=== PATIENT | male | born 1935 | race Caucasian/White ===

== ENCOUNTER 2016-04-20 08:24 | Inpatient (IN) | payer OTHER, MEDICARE ==
[2016-04-12 10:34] VITALS: BMI 36.0
[~2016-04-20] VITALS: Ht 177.8 cm; Wt 114.0 kg
--- NOTE | 2016-04-20 06:18 | History and Physical ---
History & Physical CC: End stage renal disease HPI: Mr. Hightower states that he is not yet on dialysis, but was advised to have this fistula created prior to needing it as it would take some time for maturation. He left basilic vein fistula created and is now admitted ofr transposistion. The patient denies any complaints at this time including headaches, fevers, chills, dizziness, chest pain, shortness of breath, abdominal pain, nausea, vomiting, diarrhea, constipation, dysuria, hematuria, rest pain, claudication, nonhealing wounds or ulcers or other complaints. The vein mapping ultrasound of his bilateral upper extremities demonstrates usable basilic veins in the upper arms bilaterally. The patient is right- handed. ALLERGIES: INCLUDE RIKI INHIBITORS, PREDNISONE AND TAPE. HOME MEDICATIONS: Reconciled on the chart and include the following: Allopurinol, aspirin, atenolol, calcitriol, Diltia XT, furosemide, hydralazine, losartan, tamsulosin, and vitamin D3. PAST MEDICAL HISTORY: Positive for chronic kidney disease, renal carcinoma, history of basal cell carcinoma, obstructive sleep apnea, hypertension, gout, colon polyps. PAST SURGICAL HISTORY: Positive for appendectomy in 1960, right nephrectomy, colonoscopy, cataract removal, cystoscopy. SOCIAL HISTORY: Negative for tobacco, alcohol or drug use. FAMILY HISTORY: Positive for colon cancer in a brother, renal failure in his mother, stomach cancer in his father. REVIEW OF SYSTEMS: Negative for fatigue, fevers, sweats, weight loss, exercise intolerance, abnormal moles or rashes, vision changes or photophobia, ear pain, sinus problems or sore throat, cough, shortness of breath, hemoptysis or wheezing, chest pain, palpitations, edema or syncope, abdominal pain, nausea, vomiting, diarrhea, constipation, dysuria, hematuria, muscle weakness, headaches , dizziness, numbness or seizures. PHYSICAL EXAM: His vital signs today are as follows: Blood pressure 134/64 in the left arm, heart rate 57, oxygen 97% on room air. The patient is 175 cm tall and 113 kilograms. Constitutional: In general, patient is an obese, but generally healthy-appearing, well-nourished, well-developed elderly male in no acute distress. He ambulates without assistance and is active, alert and oriented x4 with no recent and remote memory. His head is normocephalic, atraumatic. Eyes are EOMI. His ENMT exam demonstrates no hearing loss, rhinorrhea or pharyngeal erythema. His neck is supple, nontender with midline trachea without masses or crepitus. Lung exam demonstrates no dyspnea. They are decreased somewhat, but are clear to auscultation bilaterally. Cardiovascular exam demonstrates a nondisplaced apical impulse with a regular rate and rhythm without murmurs, lifts, heaves, thrills or gallops. His peripheral pulses are full and equal in all extremities unless otherwise noted, specifically they are normal in his carotid, brachial, radial and femoral pulses. His bilateral lower extremity distal pulses are +2. He has brisk capillary refill and no sign of distal ischemia. The patient demonstrates no bruits in his carotid, abdominal or femoral area. His abdomen is soft, nontender with normoactive bowel sounds in all 4 quadrants without guarding or rebound. There is no flank or CVA tenderness. His musculoskeletal exam demonstrates normal tone and strength for age. His bilateral upper extremities demonstrate no cyanosis, edema, clubbing, varicosities or ulcers. His bilateral lower extremities do demonstrate +1 edema but no cyanosis, mottling or ulcers. Neurologically, patient has grossly intact cranial nerves and grossly intact sensation. ASSESSMENT AND PLAN: End-stage renal disease, not on hemodialysis. Plan: This patient is admitted for transposition of a left antecubital basilic vein fistula. I have discussed the risks options and benefits of the procedure with the patient. The patient understands the risks options and benefits and agrees to the procedure.
[~2016-04-20 08:24] MED LIST: ALL300 PO; ASPI81TA28 PO; ATEN-173 PO; CALC1CAP36 PO; CALC667C4 PO; CEFAZOLIN 2000 MG/60 ML D5W IV SCH; CHOL100027 PO; CRDCD240 PO; CZR50 PO; FLM4 PO; FRS/40 PO; HYDR-4717 PO; SODIUM CHLORIDE 0.9% 1000ML 1,000 ML IV SCH
[2016-04-20 08:49] VITALS: BP 133/59; PULSE 68; TEMP 36.5; O2SAT 95; BMI 36.0
[2016-04-20 09:24] LABS: PROTHROMBIN TIME (PATIENT) 10.8 SECONDS (9.0-12.0)
--- NOTE | 2016-04-20 09:33 | History & Physical Bridge Note ---
H&P Re-Evaluation Bridge Note: I have examined the patient, reviewed the History & Physical and in the interval since the performance of the History & Physical I have noted the following changes of clinical significance: No changes noted
[2016-04-20 09:43] LABS: BUN/CREATININE RATIO 14.6 (10-20); POTASSIUM 4.6 mmol/L (3.5-5.1)
[2016-04-20 09:44] LABS: CREATININE 5.4 mg/dl (0.60-1.40)
[2016-04-20] MEDS ORDERED: FENTANYL CITRATE INJ 50 MCG/1 ML 2 ML VIAL ONE ×2 (10:07→11:03)
[2016-04-20] MEDS ORDERED: MIDAZOLAM HCL 1 MG/ML 2ML VIAL ONE (10:07)
[2016-04-20] MEDS ORDERED: CEFAZOLIN SOD 1 GM VIAL ONE (10:46)
[2016-04-20] MEDS ORDERED: LIDOCAINE HCL 2% 2 ML VIAL (20MG/ML) ONE (10:46)
[2016-04-20] MEDS ORDERED: EpHEDrine SULFATE 50MG/5ML SYR ONE (10:46)
[2016-04-20] MEDS ORDERED: PROPOFOL IV EMULSION 10 MG/ML 20 ML VIAL IV ONE (10:46)
[2016-04-20] MEDS ORDERED: ONDANSETRON INJ 2 MG/ML 2 ML VIAL ONE (12:15)
--- NOTE | 2016-04-20 12:26 | [facility] Post Operative Brief Note ---
Immediate Operative Summary Operative Date Apr 20, 2016. Pre-Operative Diagnosis End stage renal disease Post-Operative Diagnosis Same as preop Procedure(s) Performed Left upper extremity basilic vein transposition second stage Surgeon Dr. Lin Technical Training Manager Surgeon(s) Salome Ralph PA-C Estimated Blood Loss 150ml Findings Good thrill Specimens none Anesthesia Gen Complication(s) None Disposition Recovery Room / PACU
--- NOTE | 2016-04-20 12:29 | Discharge Instructions ---
Discharge Instructions Visit Reason for Visit: End Stage Renal Disease Discharge Discharge Diagnosis / Problem: End stage renal disease Discharge Goals Goal(s): Therapeutic intervention Activity Recommendations Activity Limitations: per Instructions/Follow-up section Anesthesia . Post Anesthesia Instructions: If you have had General Anesthesia or IV Sedation: * Do not drive today. * Resume driving when surgeon permits. * Do not make important decisions or sign legal documents today. * Call surgeon for: 1. Temperature elevations greater than 101 degrees F. 2. Uncontrollable pain. 3. Excessive bleeding. 4. Persistent nausea and vomiting. 5. Medication intolerance (nausea, vomiting or rash). * For nausea and vomiting use only clear liquids such as: tea, soda, bouillon until nausea subsides, then gradually increase diet as tolerated. * If you have any concerns or questions, call your surgeon's office. If physician is unavailable and it is an emergency, call 911 or go to the nearest emergency room. . Instructions / Follow-Up Instructions / Follow-Up Call [phone] to schedule a follow up appointment if one not already scheduled. ACTIVITY RECOMMENDATIONS: See Above SPECIAL CARE INSTRUCTIONS: Call your doctor if: * Temperature above 101 degrees * Pain not relieved by pain medicine ordered * There is increased drainage or redness from any incision * You have any unanswered questions or concerns. Diet Recommendations Recommended Home Diet: resume previous diet Procedures Procedures Performed: Left upper extremity basilic vein transposition second stage Pending Studies Studies pending at discharge: no Medical Emergencies . Who to Call and When: Medical Emergencies: If at any time you feel your situation is an emergency, please call 911 immediately. . Non-Emergent Contact Non-Emergency issues call your: Surgeon . . "Provider Documentation" section prepared by Maxime Lin.
[2016-04-20] MEDS ORDERED: ATROPINE SULFATE 0.1 MG/ML 5ML SYR IV PRN (12:45)
[2016-04-20] MEDS ORDERED: FENTANYL CITRATE INJ 50 MCG/1 ML 2 ML VIAL IV PRN (12:45)
[2016-04-20] MEDS ORDERED: EpHEDrine SULFATE INJ 50 MG/ML AMP IV PRN (12:45)
[2016-04-20] MEDS ORDERED: ONDANSETRON INJ 2 MG/ML 2 ML VIAL IV PRN ×3 (12:45→14:30)
--- NOTE | 2016-04-20 13:35 | Progress Note ---
Progress Note I assisted Dr Lin with Santos Hightower's Left upper extremity basilic vein transposition second stage on 04/20/16, d/t lack of resident availability.
[2016-04-20 14:09] LABS: HEMATOCRIT 27.6 % (42-52)
--- NOTE | 2016-04-20 14:18 | Anesthesiology Progress Note ---
Anesthesia Post Op Note Date & Time Apr 20, 2016 at 14:16 Vital Signs Pain Intensity: 3 Vital Signs Past 12 Hours Date Time Temp Pulse Resp B/P Pulse Ox O2 Delivery O2 Flow Rate FiO2 04/20/16 14:05 53 17 97/56 100 Nasal Cannula 2 04/20/16 13:55 52 12 102/58 100 Nasal Cannula 2 04/20/16 13:45 52 12 102/59 100 Nasal Cannula 2 04/20/16 13:35 51 12 92/56 99 Nasal Cannula 2 04/20/16 13:25 48 12 91/54 100 Nasal Cannula 2 04/20/16 13:15 48 13 94/52 100 Nasal Cannula 2 04/20/16 13:05 51 12 98/55 100 Nasal Cannula 2 04/20/16 12:55 38 13 101/49 100 Mask 10 04/20/16 12:45 47 12 96/52 100 Mask 10 04/20/16 12:38 36.1 35 12 91/49 100 Mask 10 04/20/16 08:49 36.5 68 20 133/59 95 Room Air Notes Mental Status: alert / awake / arousable, participated in evaluation Pt Amnestic to Procedure: Yes Nausea / Vomiting: adequately controlled Pain: adequately controlled Airway Patency, RR, SpO2: stable & adequate BP & HR: stable & adequate Hydration State: stable & adequate Anesthetic Complications: no major complications apparent Patient was having some sinus pauses on arrival to pacu. this improved after an hour or so in recovery. he was arousable and appropriate throughout. Due to this and some swelling in the arm which had been evaluated by Dr Lin, he will be admitted to observation overnight on telemetry. Cardiology has been consulted and will evaluate the patient.
[2016-04-20] MEDS ORDERED: NITROGLYCERIN 0.4 MG SL PER TAB CHARGE SL PRN (14:30)
[2016-04-20] MEDS ORDERED: ACETAMINOPHEN 325 MG TAB PO PRN (14:30)
--- NOTE | 2016-04-20 14:39 | Progress Note ---
Progress Note ATTENDING NOTE : pt seen and evaluated with Evie Tafoya PA-C lab works , EKG reviewed , please seen her detail note 81 M with CKD stage 4-5 , solitary kidney , s/ P rt nephrectomy for renal cell CA , gout , BPH MUGS was at same surgery center for Dialysis access -underwent Left upper extremity basilic vein transposition second stage on today by Dr Nicole had uneventful procedure except pt remained in sinus bradycardia HR in 50's , anesthesiology note mentions frequent sinus pause in PACU after recovering form anesthesia -pt was found to have 3 sec sinus pause was asymptomatic , during evaluation -his HR was 54 pt denies of any symptom of SOB, dizzy spell or palpitation not aware of any prior event of cardiac arrhythmia P/E: Gen: no apparent distress HEENT : sclera non icteric, PERRLA/EOMI HT :regular S1/S2 Lungs : CTA ext : s/p left upper arm vascular surgery -char present , no bleeding , + edema on left upper arm Abdomen : soft, non tender neuro: no focal neurological deficit A/P : Sinus Pause : -asymptomatic -post procedure for vascular access for future Hemodialysis -no prior hx -pt was on Cardizem CD 240 mg Daily /Atenolol 50 mg daily -( mentions of taking his AM Meds ) -will be on hold -avoid all AV waylon blockade /beta kyler monitor in Tele -cardiac work up -Cardiac markers , ECHO , TSH ordered check labs , PRP , Mg , CA -Cardiology eval requested , case D/w call or contact centre operator Microstrategy Architect CKD Stage 4-5 : does not appear to be vol overloaded Electrolytes to approx baseline follow Nephrology eval requested , pt follow with Dr Peck HTN will cont Hydralazine , Losartan hold Beta kyler and Cardizem for sinus pause , bradycardia CODE status : Full code -d/w patient DVT PROPHYLAXIS : SCD and teds sub q heparin not ordered due to recent vascular surgery DISPOSITION ; expected to discharge home when medically stable
[2016-04-20 14:43] LABS: BUN/CREATININE RATIO 14.5 (10-20); CALCIUM 8.4 mg/dl (8.5-10.1); CREATININE 5.4 mg/dl (0.60-1.40); MAGNESIUM 2.4 mg/dl (1.8-2.4); PHOSPHORUS 5.2 mg/dl (2.5-4.9); POTASSIUM 4.9 mmol/L (3.5-5.1)
[2016-04-20 14:52] LABS: BASO % 0.4 %; BASO ABS # 0.03 K/uL (0-0.2); COMPLETE YES; EOS % 2.6 %; IG% 0.1 %; LYMPH % 9.3 %; LYMPH ABS # 0.75 K/uL (1.2-3.4); MEAN CORPUSCULAR HEMOGLOBIN 28.4 pg (25-34); MEAN CORPUSCULAR HGB CONC 32.2 g/dl (32-36); MEAN PLATELET VOLUME 9.8 fL (7.4-10.4); MONO % 5.3 %; NEUT % 82.3 %; PLATELET COUNT 216 K/uL (130-400); RED BLOOD COUNT 3.17 M/uL (4.7-6.1); WHITE BLOOD COUNT 8.08 K/uL (4.8-10.8)
[2016-04-20 14:55] VITALS: BP 109/66; PULSE 52; TEMP 36.4; O2SAT 95; Ht 177.8 cm; Wt 114.0 kg
[2016-04-20 15:06] LABS: CKMB/CK RATIO 3.2 (0-3.0)
[2016-04-20] MEDS: ACETAMINOPHEN 325 MG TAB PO PRN ×3 (15:24→23:50)
--- NOTE | 2016-04-20 15:45 | CARDIOLOGY CONSULTATION ---
DATE OF CONSULTATION: 04/20/2016 REFERRING PHYSICIAN: Dr. Maxime Lin. REASON FOR CONSULTATION: Sinus arrest. HISTORY OF PRESENT ILLNESS: Mr. Hightower is an 81-year-old gentleman who presented for outpatient left upper extremity basilic vein transposition stage II. Post-procedure while in the PACU, the patient was noted to have approximately two 3- to -3.2-second pauses. The patient does not recall these events. There were apparently no associated symptoms. He was subsequently referred for further evaluation. The patient carries a history of hypertensive heart disease, chronic kidney disease stage V, not on dialysis, ascending aortic aneurysm, and severe obstructive sleep apnea. Denies any recent chest discomfort, unusual shortness of breath, lightheadedness, dizziness, syncope or near syncope. Currently resting comfortably in his hospital bed. Telemetry demonstrates sinus rhythm with a right bundle branch block. His is present as well. She offers no other complaints/concerns. REVIEW OF SYSTEMS: The pertinent positives noted above, a comprehensive 10-system review is otherwise negative. PAST MEDICAL HISTORY: 1. Chronic kidney disease stage V, not on hemodialysis. 2. Hypertensive heart disease. 3. Ascending aortic aneurysm. 4. Severe obstructive sleep apnea with hypopnea syndrome. 5. MGUS. 6. Status post right-sided nephrectomy due to cancer. 7. Gout. PAST SURGICAL HISTORY: Nephrectomy, appendectomy, colonoscopy, cataract. SOCIAL HISTORY: Lifelong nonsmoker. and lives with his . FAMILY HISTORY: Negative for premature CAD or sudden cardiac ; however, noncontributory, given patient's advanced age. ALLERGIES: INCLUDE ADHESIVE TAPE, PREDNISONE, RIKI INHIBITORS. OUTPATIENT MEDICATIONS: 1. Rocaltrol 0.25 mcg on Monday, Monday, Monday. 2. PhosLo 667 mg capsule 1 cap 3 times daily with meals. 3. Furosemide 20 mg daily. 4. Hydralazine 50 mg twice daily. 5. Flomax 0.4 mg daily. 6. Cardizem CD 240 mg every 24 hours. 7. Allopurinol 300 mg daily. 8. Losartan 100 mg daily. 9. Atenolol 50 mg a day. 10. Aspirin 81 mg daily. ECG demonstrates sinus rhythm, first-degree AV block, right bundle branch block. Review of telemetry strips from the PACU demonstrate 3.0- to -3.2-second sinus pause. No heart block. LABORATORY DATA: White blood cell count 8.08, hemoglobin is 8.9, platelet count is 216. Sodium 144, potassium 4.9, chloride 110, CO2 is 22, BUN 70, creatinine 5.40. PHYSICAL EXAMINATION: VITAL SIGNS: Temperature is 36 degrees centigrade, pulse 55 beats per minute and regular, respiratory rate 12 breaths per minute, blood pressure 103/50 and SaO2 99% on 2 liters. GENERAL: NAD, awake, alert and oriented x3. HEENT: His mucous membranes are moist. There is no scleral icterus. Conjunctivae are pink. NECK: Supple. There is no JVD, no HJR. HEART: Regular with a normal S1 and S2. There is a 1/6 mid systolic murmur heard best at the apex. ABDOMEN: Soft, nontender. No rebound or guarding. Normal bowel sounds. EXTREMITIES: Warm and dry without clubbing, cyanosis, or edema. NEUROLOGIC: Demonstrates no focal deficit. FINAL IMPRESSION: 1. 81-year-old male admitted for elective basilic vein transposition. Procedure uncomplicated. Postoperatively, patient noted 2 asymptomatic 3- to -3.2-second pauses on AV waylon blocking agents listed above. 2. Underlying conduction disease with first-degree AV block and right bundle branch block. 3. Hypertensive heart disease with currently well controlled blood pressure. 4. History of ascending aortic aneurysm. 5. Severe obstructive sleep apnea/hypopnea syndrome. 6. Chronic kidney disease stage V, not currently on hemodialysis. PLAN AND RECOMMENDATIONS: The patient's atenolol and Cardizem have been placed on hold appropriately. Continue telemetry monitoring. Repeat ECG in the a.m. Plan is to discontinue Cardizem at this time. We would likely transition atenolol to Toprol-XL due to underlying renal disease. Also, suspect the patient's underlying severe sleep apnea/hypopnea contributing to transient sinus pauses post-surgery. Other medications will be continued as previously ordered. Resting 2D transthoracic echo pending at this time. Thank you for allowing me to take part in the care of your patient.
[2016-04-20 16:00] VITALS: O2SAT 95
[2016-04-20 17:54] LABS: MEAN CELL VOLUME 88.5 fL (80-100)
--- NOTE | 2016-04-20 18:46 | History and Physical ---
History & Physical Date & Time of Service: Apr 20, 2016 at 14:46 Chief Complaint: End Stage Renal Disease Primary Care Physician: Lb Melchor D.O. History of Present Illness Source: patient, clinic records, hospital records This is an 81 year old male with PMH of CKD stage 5 not on dialysis, solitary kidney, hx right nephrectomy for kidney cancer, thoracic aortic aneurysm, gout, MGUS, BPH, who underwent LUE basilic vein transposition second stage today Dr. Lin. Postoperatively in PACU patient was noted to have frequent sinus pause up to 3 seconds which were asymptomatic. Patient then returned to sinus bradycardia with 1st degree AV block. Patient states he is having some mild postop pain in the LUE. Patient denies any dizziness, chest pain, palpitations, SOB, recent bowel or bladder changes. He denies history of CAD or arrhythmia. Patient's prior EKG from 2015 showed sinus bradycardia with 1st degree AV block and RBBB. Past Medical/Surgical History Medical Problems: (1) Benign neoplasm of colon Status: Chronic (2) BPH (benign prostatic hypertrophy) Status: Chronic (3) CKD (chronic kidney disease), stage V Status: Chronic (4) Gout Status: Chronic (5) Malignant neoplasm of kidney Status: Chronic (6) MGUS (monoclonal gammopathy of unknown significance) Status: Chronic (7) ORLIN on CPAP Status: Chronic (8) S/p nephrectomy Status: Chronic (9) Solitary kidney Status: Chronic (10) Thoracic aortic aneurysm Status: Chronic (11) TIA (transient ischemic attack) Status: Chronic Surgical Problems: (1) H/O colonoscopy with polypectomy Status: Chronic (2) History of cataract surgery Status: Chronic (3) S/P appendectomy Status: Chronic Social History Smoking Status: Never Smoker Alcohol Use: none Drug Use: none Marital Status: Housing status: lives with family Immunizations History of Influenza Vaccine: Yes Influenza Vaccine Date: Dec 25, 2008 History of Tetanus Vaccine?: Yes Tetanus Immunization Date: Sep 24, 2004 History of Pneumococcal: Yes History of Hepatitis B Vaccine: No Multi-Drug Resistant Organisms History of MDRO: No Allergies Coded Allergies: Latex (Verified Allergy, Severe, REDNESS, 04/20/16) Prednisone (Verified Allergy, Severe, HYPOTENSION, ABDOMINAL PAIN, 04/20/16 ) RIKI Inhibitors (Verified Adverse Reaction, Unknown, COUGH, 04/20/16) Home Medications Scheduled Allopurinol (Zyloprim *), 300 MG PO QAM Aspirin (Aspirin Ec), 81 MG PO QAM Atenolol (Tenormin), 12.5 MG PO QAM Calcitriol (Calcitriol), 0.25 MCG PO QAM Calcium Acetate (Phoslo 667 Mg), 1 CAP PO TIDM Cholecalciferol (Vitamin D 1000 Unit), 1,000 INTER.UNIT PO QAM Diltiazem Hcl Cd (Cardizem Cd *), 240 MG PO QAM Furosemide (Lasix), 20 MG PO QAM Hydralazine Hcl (Apresoline), 50 MG PO BID Losartan Potassium (Cozaar *), 100 MG PO QAM Tamsulosin Hcl (Flomax *), 0.4 MG PO QAM Review of Systems Ten point review of systems performed with pertinent positives and negatives noted in HPI. Physical Exam Vital Signs Date Time Temp Pulse Resp B/P Pulse Ox O2 Delivery O2 Flow Rate FiO2 04/20/16 14:15 36.0 55 12 103/59 99 Nasal Cannula 2 04/20/16 14:05 53 17 97/56 100 Nasal Cannula 2 04/20/16 13:55 52 12 102/58 100 Nasal Cannula 2 04/20/16 13:45 52 12 102/59 100 Nasal Cannula 2 04/20/16 13:35 51 12 92/56 99 Nasal Cannula 2 04/20/16 13:25 48 12 91/54 100 Nasal Cannula 2 04/20/16 13:15 48 13 94/52 100 Nasal Cannula 2 04/20/16 13:05 51 12 98/55 100 Nasal Cannula 2 04/20/16 12:55 38 13 101/49 100 Mask 10 04/20/16 12:45 47 12 96/52 100 Mask 10 04/20/16 12:38 36.1 35 12 91/49 100 Mask 10 04/20/16 08:49 36.5 68 20 133/59 95 Room Air General Appearance: WD/WN, no apparent distress, + pertinent finding (alert 81 year old male, lying in bed in PACU) Head: normocephalic, atraumatic Eyes: normal inspection, sclerae normal ENT: hearing grossly normal Neck: supple, trachea midline Respiratory/Chest: lungs clear, normal breath sounds, no respiratory distress, no accessory muscle use Cardiovascular: no murmur, + bradycardia (regular rhythm, rate 50s ) Abdomen/GI: normal bowel sounds, non tender, soft Extremities/Musculoskelatal: no calf tenderness, + pertinent finding (left radial pulse 2+. mild edema of LUE.) Neurologic/Psych: alert, normal mood/affect, oriented x 3, + pertinent finding (grossly nonfocal ) Skin: normal color, warm/dry, + pertinent finding (incision site appears clean/ dry with char intact, no erythema or drainage) Diagnostics Laboratory Results Results Past 24 Hours Test 04/20/16 09:08 04/20/16 13:45 04/20/16 14:29 04/20/16 14:30 Range/Units Prothrombin Time 10.8 9.0-12.0 SECONDS Prothromb Time International Ratio 1.0 0.9-1.1 Activated Partial Thromboplast Time 25.1 21.0-31.0 SECONDS Partial Thromboplastin Ratio 1.0 Sodium Level 143 144 136-145 mmol/L Potassium Level 4.6 4.9 3.5-5.1 mmol/L Chloride Level 111 110 98-107 mmol/L Carbon Dioxide Level 20 22 21-32 mmol/L Anion Gap 12.0 12.0 3-11 mmol/L Blood Urea Nitrogen 79 78 7-18 mg/dl Creatinine 5.40 5.40 0.60-1.40 mg/dl Est Creatinine Clear Calc Drug Dose 13.8 13.8 ml/min Estimated GFR () 10.7 10.7 Estimated GFR (Non- 9.2 9.2 BUN/Creatinine Ratio 14.6 14.5 10-20 Random Glucose 100 116 70-99 mg/dl Calcium Level 9.0 8.4 8.5-10.1 mg/dl Hemoglobin 8.9 14.0-18.0 g/dL Hematocrit 27.6 42-52 % Phosphorus Level 5.2 2.5-4.9 mg/dl Magnesium Level 2.4 1.8-2.4 mg/dl Albumin 3.1 3.4-5.0 gm/dl Creatine Kinase MB Ratio 0-3.0 EKG EKG at 14:44 showed sinus bradycardia with 1st degree AV block, RBBB Impression Assessment and Plan SINUS PAUSES Observation to telemetry Asymptomatic Possibly secondary to anesthesia- occurred post procedure for vascular access for future HD No prior history of sinus pause Hold Cardizem and Atenolol Trend serial cardiac enzymes Check echo Check TSH Monitor electrolytes Consult cardiology- Dr. Christine aware; appreciate recommendations CKD STAGE 5 Not on HD; had procedure today for vascular access Monitor renal function and electrolytes Consult nephrology- patient known to Dr. Peck HYPERTENSION BP is running 90s-100s systolic Hold atenolol and Cardizem for sinus pause/ bradycardia Continue hydralazine and losartan ORLIN Continue CPAP DVT PROPHYLAXIS SCD's due to recent vascular surgery CODE STATUS Full inker per admitting physician's discussion with patient Patient seen in collaboration with Dr. Lr. Please see her addendum. Patient will be followed by Dr. Salas tomorrow. Progress Note ATTENDING NOTE : pt seen and evaluated with Evie Tafoya PA-C lab works , EKG reviewed , please seen her detail note 81 M with CKD stage 4-5 , solitary kidney , s/ P rt nephrectomy for renal cell CA , gout , BPH MUGS was at same surgery center for Dialysis access -underwent Left upper extremity basilic vein transposition second stage on today by Dr Nicole had uneventful procedure except pt remained in sinus bradycardia HR in 50's , anesthesiology note mentions frequent sinus pause in PACU after recovering form anesthesia -pt was found to have 3 sec sinus pause was asymptomatic , during evaluation -his HR was 54 pt denies of any symptom of SOB, dizzy spell or palpitation not aware of any prior event of cardiac arrhythmia P/E: Gen: no apparent distress HEENT : sclera non icteric, PERRLA/EOMI HT :regular S1/S2 Lungs : CTA ext : s/p left upper arm vascular surgery -char present , no bleeding , + edema on left upper arm Abdomen : soft, non tender neuro: no focal neurological deficit A/P : Sinus Pause : -asymptomatic -post procedure for vascular access for future Hemodialysis -no prior hx -pt was on Cardizem CD 240 mg Daily /Atenolol 50 mg daily -( mentions of taking his AM Meds ) -will be on hold -avoid all AV waylon blockade /beta kyler monitor in Tele -cardiac work up -Cardiac markers , ECHO , TSH ordered check labs , PRP , Mg , CA -Cardiology eval requested , case D/w house calls 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 Y/N: Yes Risk Level: Moderate
--- NOTE | 2016-04-20 19:00 | Nephrology Consultation ---
Nephrology Consultation Date of Consultation: Apr 20, 2016. Attending Physician: Dr Salas Requesting Physician: Dr Salas Reason for Consultation: CKD History of Present Illness 81 year old male admitted today for cardiac monitoring after developing 2-3 second pauses in PACU after outpt second stage of LUE basilic vein transposition with Dr. Lin. Other PMH as below; follows w/ Dr. 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 In PACU after procedure, pt asymptomatic w/ pauses; ECG showed RBBB, stable from prior tracings. Cardiology is following; his CCB and BB are on hold; plan is to optimize BB when appropriate. TTE pending and for repeat ECG in am. His renal function is at baseline w/ creatinine in mid 5s, K 4.9; hgb 9. 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 Peck -s/p R nephrectomy 2002 RCC -HTN dx'd his 40s -HTN heart disease -TIA -ascending aortic aneurysm -MGUS -severe ORLIN on CPAP Family History M d/o renali failure unspecified cause in her 70s Social History Smoking Status: Never Smoker Alcohol Use: none Drug Use: none Marital Status: Housing Status: lives with family Occupation Status: retired Allergies Coded Allergies: Latex (Verified Allergy, Severe, REDNESS, 04/20/16) Prednisone (Verified Allergy, Severe, HYPOTENSION, ABDOMINAL PAIN, 04/20/16 ) RIKI Inhibitors (Verified Adverse Reaction, Unknown, COUGH, 04/20/16) Medications Current Inpatient Medications Medications (Trade) Dose Ordered Sig/Vianney Route Start Time Stop Time Status Last Admin Dose Admin Sodium Chloride (Nss 1000ml) 1,000 ml @ 15 mls/hr Q24H IV 04/20/16 06:00 04/21/16 05:59 04/20/16 09:11 15 MLS/HR Acetaminophen (Tylenol Tab) 650 mg Q4H PRN PO 04/20/16 14:00 05/20/16 13:59 04/20/16 15:24 650 MG Ondansetron HCl (Zofran Inj) 4 mg Q6H PRN IV 04/20/16 14:00 05/20/16 13:59 Nitroglycerin (Nitrostat Tab) 0.4 mg UD PRN SL 04/20/16 14:30 05/20/16 14:29 Allopurinol (Zyloprim Tab) 300 mg QAM PO 04/21/16 09:00 05/21/16 08:59 Aspirin (Ecotrin Tab) 81 mg QAM PO 04/21/16 09:00 05/21/16 08:59 Calcitriol (Rocaltrol Cap) 0.25 mcg QAM PO 04/21/16 09:00 05/21/16 08:59 Calcium Acetate (Phoslo Cap) 667 mg MoWe@0800 PO 04/25/16 08:00 05/25/16 07:59 Cholecalciferol (Vitamin D Tab) 1,000 inter.unit QAM PO 04/21/16 09:00 05/21/16 08:59 Furosemide (Lasix Tab) 20 mg QAM PO 04/21/16 09:00 05/21/16 08:59 Hydralazine HCl (Apresoline Tab) 50 mg BID PO 04/20/16 21:00 05/20/16 20:59 Losartan Potassium (coZAAR TAB) 100 mg QAM PO 04/21/16 09:00 05/21/16 08:59 Tamsulosin HCl (Flomax Cap) 0.4 mg QAM PO 04/21/16 09:00 05/21/16 08:59 Home Meds and Scripts Medications Dose Route/Sig Max Daily Dose Days Date Category Phoslo 667 Mg (Calcium Acetate) 667 Mg Cap 1 Cap PO WM 04/12/16 Reported Lasix (Furosemide) 40 Mg Tab 20 Mg PO QAM 02/10/16 Reported Aspirin Ec (Aspirin) 81 Mg Tab 81 Mg PO QAM 02/10/16 Reported Calcitriol 0.25 Mcg Cap 0.25 Mcg PO QAM 04/10/14 Reported Vitamin D 1000 Unit (Cholecalciferol) 1,000 Unit Cap 1,000 Inter.unit PO QAM 04/10/14 Reported Apresoline (Hydralazine Hcl) 50 Mg Tab 50 Mg PO BID 04/10/14 Reported Tenormin (Atenolol) 25 Mg Tab 12.5 Mg PO QAM 01/06/11 Reported Cozaar * (Losartan Potassium) 100 Mg Tab 100 Mg PO QAM 04/05/10 Reported Cardizem Cd * (Diltiazem HCl) 240 Mg Capcr 240 Mg PO QAM 04/06/09 Reported Flomax * (Tamsulosin HCl) 0.4 Mg Cap 0.4 Mg PO QAM 04/05/09 Reported Zyloprim * (Allopurinol) 300 Mg Tab 300 Mg PO QAM 04/05/09 Reported Review of Systems Constitutional: No fatigue, No fever, No weakness, No weight loss Eyes: No worsening of vision ENT: No hearing loss Respiratory: + dyspnea on exertion (w/ 15 stairs if he hurries; stable), No cough, No shortness of breath Cardiac: No PND, No chest pain, No edema Abdomen: No constipation, No diarrhea, No nausea, No pain, No vomiting Musculoskeletal: No joint pain, No muscle pain Male : No dysuria, No hematuria, No urinary frequency Neuro: No balance problems, No memory loss, No weakness Psych: No anxiety, No depression symptoms Heme: No abnormal bleeding/bruising Endo: No fatigue Skin: No rash Physical Exam Date Time Temp Pulse Resp B/P Pulse Ox O2 Delivery O2 Flow Rate FiO2 04/20/16 16:00 95 Room Air 04/20/16 14:55 36.4 52 16 109/66 95 Nasal Cannula 04/20/16 14:15 36.0 55 12 103/59 99 Nasal Cannula 2 04/20/16 14:05 53 17 97/56 100 Nasal Cannula 2 04/20/16 13:55 52 12 102/58 100 Nasal Cannula 2 04/20/16 13:45 52 12 102/59 100 Nasal Cannula 2 04/20/16 13:35 51 12 92/56 99 Nasal Cannula 2 04/20/16 13:25 48 12 91/54 100 Nasal Cannula 2 04/20/16 13:15 48 13 94/52 100 Nasal Cannula 2 04/20/16 13:05 51 12 98/55 100 Nasal Cannula 2 04/20/16 12:55 38 13 101/49 100 Mask 10 04/20/16 12:45 47 12 96/52 100 Mask 10 04/20/16 12:38 36.1 35 12 91/49 100 Mask 10 04/20/16 08:49 36.5 68 20 133/59 95 Room Air General Appearance: WD/WN, no apparent distress, + obese, + pertinent finding ( on RA, oriented x 3, good historian) Eyes: EOMI ENT: normal ENT inspection Neck: supple Respiratory/Chest: no respiratory distress, + decreased breath sounds Cardiovascular: + bradycardia, + pertinent finding (distant HS; perhaps trace ankle edema) Abdomen: normal bowel sounds, non tender, soft, + pertinent finding (no harman) Extremities: + pedal edema (minimal), + pertinent finding (L proximal AVF bandaged) Neurologic/Psych: no motor/sensory deficits, alert, normal mood/affect, oriented x 3 Skin: no jaundice, warm/dry, no rash Diagnostics Last 24 Hours Test 04/20/16 09:08 04/20/16 13:45 Prothrombin Time 10.8 SECONDS Prothromb Time International Ratio 1.0 Activated Partial Thromboplast Time 25.1 SECONDS Partial Thromboplastin Ratio 1.0 Sodium Level 143 mmol/L 144 mmol/L Potassium Level 4.6 mmol/L 4.9 mmol/L Chloride Level 111 mmol/L 110 mmol/L Carbon Dioxide Level 20 mmol/L 22 mmol/L Anion Gap 12.0 mmol/L 12.0 mmol/L Blood Urea Nitrogen 79 mg/dl 78 mg/dl Creatinine 5.40 mg/dl 5.40 mg/dl Est Creatinine Clear Calc Drug Dose 13.8 ml/min 13.8 ml/min Estimated GFR () 10.7 10.7 Estimated GFR (Non- 9.2 9.2 BUN/Creatinine Ratio 14.6 14.5 Random Glucose 100 mg/dl 116 mg/dl Calcium Level 9.0 mg/dl 8.4 mg/dl White Blood Count 8.08 K/uL Red Blood Count 3.17 M/uL Hemoglobin 8.9 g/dL Hematocrit 27.6 % Mean Corpuscular Volume 88.5 fL Mean Corpuscular Hemoglobin 28.4 pg Mean Corpuscular Hemoglobin Concent 32.2 g/dl Platelet Count 216 K/uL Mean Platelet Volume 9.8 fL Neutrophils (%) (Auto) 82.3 % Lymphocytes (%) (Auto) 9.3 % Monocytes (%) (Auto) 5.3 % Eosinophils (%) (Auto) 2.6 % Basophils (%) (Auto) 0.4 % Neutrophils # (Auto) 6.65 K/uL Lymphocytes # (Auto) 0.75 K/uL Monocytes # (Auto) 0.43 K/uL Eosinophils # (Auto) 0.21 K/uL Basophils # (Auto) 0.03 K/uL RDW Standard Deviation 49.2 fL RDW Coefficient of Variation 15.1 % Immature Granulocyte % (Auto) 0.1 % Immature Granulocyte # (Auto) 0.01 K/uL Red Blood Cell Morphology Unremarkable Phosphorus Level 5.2 mg/dl Magnesium Level 2.4 mg/dl Total Creatine Kinase 65 U/L Creatine Kinase MB 2.1 ng/ml Creatine Kinase MB Ratio 3.2 Troponin I < 0.015 ng/ml Albumin 3.1 gm/dl Diagnostic Radiology: no CXR EKG: ECG as above Assessment & Plan 81 y/o M w/ ESRD not on dialysis admitted for cardiac optimization after developing asymptomatic 2-3 second pauses on monitoring coordinator in pacu after LUE AVF transposition today. his chemistries and blood pressures are acceptable as is his anemia. no uremic sx currently. ESRD -not on dialysis and no urgent indication at this time -ensure renal diet and <2 gm/day Na -daily bmp -continue BISMARK meds > rocaltrol and phos Lo HTN -agree w/ continuing lasix, hydralazine, losartan at customary outpt doses -CCB stopped; BB per cardiology > agree w/ atenolol recommendation when/if appropriate to reintroduce RBBB/ AV conduction disease complicated by severe sleep apnea > 2-3 second pauses after uncomplicated outpt surgery -per cardiology; TTE pending Appreciate c/s; will follow with you.
[2016-04-20 19:30] VITALS: BP 121/57; PULSE 54; TEMP 36.4; O2SAT 93
[2016-04-20 21:42] LABS: CKMB/CK RATIO 2.5 (0-3.0)
[2016-04-20 23:23] VITALS: BP 110/66; PULSE 55; TEMP 36.4; O2SAT 96
[2016-04-21] VITALS (11 sets, daily range): BP systolic 95–142; BP diastolic 57–77; PULSE 58–74; TEMP 36.6–36.9; O2SAT 93–96
[2016-04-21 05:48] LABS: CHOLESTEROL 101 mg/dl (0-200); CHOLESTEROL/HDL RATIO 3.5; CKMB/CK RATIO 2.5 (0-3.0); HDL CHOLESTEROL 29 mg/dl; LDL CHOLESTEROL CALCULATED 52 mg/dl; TRIGLYCERIDES 99 mg/dl (0-150); VERY LOW DENSITY LIPOPROT CALC 20 mg/dl
[2016-04-21] MEDS: ASPIRIN 81 MG ECTAB PO SCH (07:59)
[2016-04-21] MEDS: LOSARTAN POTASSIUM 50 MG TAB PO SCH (08:00)
[2016-04-21] MEDS: ALLOPURINOL 300 MG TAB PO SCH (08:00)
[2016-04-21] MEDS: FUROSEMIDE 20 MG TAB PO SCH (08:01)
[2016-04-21] MEDS: CHOLECALCIFEROL 1000 INTER.UNIT TAB PO SCH (08:01)
[2016-04-21] MEDS: CALCITRIOL 0.25 MCG CAP PO SCH ×2 (08:01→11:07)
[2016-04-21] MEDS: TAMSULOSIN HCL 0.4 MG CAP PO SCH (08:02)
--- NOTE | 2016-04-21 10:23 | Anesthesiology Progress Note ---
Anesthesia Post Op Note Date & Time Apr 21, 2016 at 10:23 Vital Signs Pain Intensity: 2.0 Vital Signs Past 12 Hours Date Time Temp Pulse Resp B/P Pulse Ox O2 Delivery O2 Flow Rate FiO2 04/21/16 08:04 36.7 64 20 102/63 94 Room Air 04/21/16 08:00 95 Room Air CPAP 04/21/16 04:30 95 Room Air CPAP 04/21/16 03:39 36.6 58 22 95/57 95 Room Air 04/21/16 00:00 96 Room Air CPAP 04/20/16 23:23 36.4 55 22 110/66 96 CPAP Notes Mental Status: alert / awake / arousable, participated in evaluation Pt Amnestic to Procedure: Yes Nausea / Vomiting: adequately controlled Pain: adequately controlled Airway Patency, RR, SpO2: stable & adequate BP & HR: stable & adequate Hydration State: stable & adequate Anesthetic Complications: no major complications apparent
[2016-04-21] MEDS: ACETAMINOPHEN 325 MG TAB PO PRN ×3 (11:05→23:31)
[2016-04-21] MEDS: CALCIUM ACETATE 667MG GELCAP PO SCH ×2 (11:07→16:46)
--- NOTE | 2016-04-21 11:16 | PROGRESS NOTE ---
DATE: 04/21/2016 DATE: 04/21/2016. SUBJECTIVE: As per the patient, he is noticing significant bleeding at the surgical site. He denies any complaints. Denies any nausea, vomiting, chest pain, shortness of breath. He is making urine. Cardiology to see the patient yesterday and they have stopped the atenolol and Cardizem for the time being and continue telemetry monitoring has been advised. PHYSICAL EXAMINATION: GENERAL: Elderly white male who is not in any distress. He is obese. HEAD, EYES, EARS, NOSE, AND THROAT: Mucous membrane is moist. NECK: Supple. No jugular venous distention. VITAL SIGNS: Blood pressure 102/63, 94% on room air. Mucous membranes moist. CHEST: Bilateral clear to auscultation. CARDIOVASCULAR: S1 and S2, regular. ABDOMEN: Soft, nontender but obese. EXTREMITIES: Shows trace edema, left proximal AV fistula surgical site was appropriately bandaged and I did not open the bandage. SKIN: No rash noted. LABORATORY TESTS: From this morning is still pending. ASSESSMENT AND PLAN: An 81-year-old white male with CKD stage V not yet on dialysis, admitted for cardiac monitoring after developing asymptomatic 2-3 second pauses on cardiac monitoring in PACU after left upper extremity AV fistula transposition yesterday. At this time, his vital signs as well as chemistries are acceptable, although the labs from today is still pending. It does not appear there is any urgent indication for dialysis at this time, although he is very close to needing it long-term. Hypertension. Given this cardiac arrhythmia that he developed yesterday I will defer the management of hypertension to cardiology. At this time both Cardizem and atenolol has been stopped. MTDD
[2016-04-21 11:31] LABS: HEMATOCRIT 30.9 % (42-52); MEAN CELL VOLUME 89.6 fL (80-100); MEAN CORPUSCULAR HEMOGLOBIN 28.1 pg (25-34); MEAN CORPUSCULAR HGB CONC 31.4 g/dl (32-36); MEAN PLATELET VOLUME 9.8 fL (7.4-10.4); PLATELET COUNT 224 K/uL (130-400); RED BLOOD COUNT 3.45 M/uL (4.7-6.1); WHITE BLOOD COUNT 8.58 K/uL (4.8-10.8)
[2016-04-21 12:15] LABS: CALCIUM 8.4 mg/dl (8.5-10.1); CREATININE 5.3 mg/dl (0.60-1.40); POTASSIUM 4.4 mmol/L (3.5-5.1)
[2016-04-21] MEDS ORDERED: METOPROLOL SUCC 25MG EXT REL TAB PO ONE (12:25)
--- NOTE | 2016-04-21 13:28 | Medical Consult ---
Consultation Note Consultation Note No complaints Incision dry and clean Good thrill in fistula Imp: Post BVT Plan: Can d/c from surgery standpoint. F/U already scheduled. He has Percocet at home already.
--- NOTE | 2016-04-21 15:12 | CARDIOLOGY PROGRESS NOTE ---
DATE: 04/21/2016 SUBJECTIVE: The patient was seen and examined at the bedside. No significant pauses on telemetry overnight. Remains in sinus rhythm. The patient remains asymptomatic. His Cardizem and atenolol have been placed on hold. His is present at the bedside. She offers no complaints. Echocardiography is pending. REVIEW OF SYSTEMS: Pertinent positives noted above. A 5-system review including cardiovascular, pulmonary, gastroenterologic, neurologic, and endocrinologic systems otherwise negative. MEDICATIONS: Reviewed via EMR. Please see list for details. LABORATORY DATA: Hemoglobin is 9.7 and platelet count is 224. Sodium 144, potassium 4.4, chloride is 112, CO2 is 20, BUN is 80, and creatinine is 5.30. Troponins are undetectable. TSH 1.090. Total cholesterol 101, LDL 52, and HDL is 29. PHYSICAL EXAMINATION: VITAL SIGNS: Temperature is 36.6 degrees centigrade, pulse 61 beats per minute and regular, respiratory rate is 20 breaths per minute, blood pressure 134/75 and SaO2 is 95% on room air. GENERAL: NAD. Awake, alert and oriented x3. HEENT: Mucous membranes are moist. No scleral icterus. Conjunctivae pink. NECK: Supple. No JVD or HJR. No carotid bruit. HEART: Regular with a normal S1 and S2. There are no murmur, rub, or gallop. LUNGS: Clear without rales, rhonchi or wheeze. ABDOMEN: Soft and nontender. No rebound or guarding. Normal bowel sounds. EXTREMITIES: Warm and dry. There is no clubbing, cyanosis, or edema. NEUROLOGIC: Demonstrates no focal deficit. FINAL IMPRESSION: 1. An 81-year-old male with sinus node dysfunction and asymptomatic 3-3.2 second pauses noted postoperatively. No recurrent pauses overnight. Cardizem and atenolol on hold. 2. 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 3. Hypertensive heart disease -- blood pressure currently well controlled. 4. Severe obstructive sleep apnea/hypopnea syndrome. 5. Chronic kidney disease, stage V with metabolic derangement. PLAN AND RECOMMENDATIONS: Atenolol and Cardizem have been discontinued. I have started the patient on low-dose Toprol-XL, which is hepatically metabolized. His blood pressure and heart rate remained within the acceptable range. From a cardiovascular standpoint, he remains stable. I will arrange for cardiology followup in approximately 1 week with an outpatient Holter monitor at that time. His resting echo is pending. No further cardiac testing or intervention. Consider obtaining nephrology input regarding renal dysfunction.
--- NOTE | 2016-04-21 19:19 | Progress Note ---
Internal Med Progress Note Date of Service: Apr 21, 2016. Provider Documentation: SUBJECTIVE: The patient was seen and examined Complains of bleeding from the right arm S/P Left upper extremity basilic vein transposition second stage on 04/20/16 Noted to have Sinus pauses >2.5 secs OBJECTIVE: Vital Signs-as noted below Exam: General-No distress at rest Eyes-normal ENT-normal Neck-Supple Lungs-clear to auscultate with decreased breath sound bilaterally Heart-Regular,no murmur Abdomen-Benign,no masses Extremities-Trace edema bilaterally Left arm surgery area is bleeding Neuro-AAOx3 Lab data as noted below. ASSESSMENT & PLAN: SINUS PAUSES Asymptomatic Possibly secondary to anesthesia- occurred post procedure for vascular access for future HD No prior history of sinus pause Cardizem and Atenolol are on hold Consult cardiology- appreciate input No more Pauses noted Small dose of Long acting BB Awaiting ECHO CKD STAGE 5 Not on HD; had procedure today for vascular access Monitor renal function and electrolytes Consult nephrology- patient known to Dr. 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 with patient Disposition Cardiology cleared for discharge [place] the requested that he should stay tonight Monitor overnight ECHO should not be holding him in hospital Discharge tomorrow Vital Signs: Date Time Temp Pulse Resp B/P Pulse Ox O2 Delivery O2 Flow Rate FiO2 04/21/16 18:59 36.9 74 18 131/67 94 Room Air 04/21/16 16:00 95 Room Air CPAP 04/21/16 15:36 36.8 63 18 138/77 93 Room Air 04/21/16 12:00 95 Room Air CPAP 04/21/16 11:33 36.6 61 20 134/75 95 Room Air 04/21/16 08:04 36.7 64 20 102/63 94 Room Air 04/21/16 08:00 95 Room Air CPAP 04/21/16 04:30 95 Room Air CPAP 04/21/16 03:39 36.6 58 22 95/57 95 Room Air 04/21/16 00:00 96 Room Air CPAP 04/20/16 23:23 36.4 55 22 110/66 96 CPAP 04/20/16 19:30 93 Room Air 04/20/16 19:30 36.4 54 18 121/57 93 Room Air Lab Results: Results Past 24 Hours Test 04/20/16 20:40 04/21/16 04:51 04/21/16 10:59 Range/Units Total Creatine Kinase 77 61 39-308 U/L Creatine Kinase MB 1.9 1.5 0.5-3.6 ng/ml Creatine Kinase MB Ratio 2.5 2.5 0-3.0 Troponin I < 0.015 < 0.015 0-0.045 ng/ml Triglycerides Level 99 0-150 mg/dl Cholesterol Level 101 0-200 mg/dl HDL Cholesterol 29 mg/dl LDL Cholesterol, Calculated 52 mg/dl VLDL Cholesterol, Calculated 20 mg/dl Cholesterol/HDL Ratio 3.5 Thyroid Stimulating Hormone (TSH) 1.090 0.300-4.500 uIu/ml White Blood Count 8.58 4.8-10.8 K/uL Red Blood Count 3.45 4.7-6.1 M/uL Hemoglobin 9.7 14.0-18.0 g/dL Hematocrit 30.9 42-52 % Mean Corpuscular Volume 89.6 80-100 fL Mean Corpuscular Hemoglobin 28.1 25-34 pg Mean Corpuscular Hemoglobin Concent 31.4 32-36 g/dl RDW Standard Deviation 50.6 36.4-46.3 fL RDW Coefficient of Variation 15.4 11.5-14.5 % Platelet Count 224 130-400 K/uL Mean Platelet Volume 9.8 7.4-10.4 fL Sodium Level 144 136-145 mmol/L Potassium Level 4.4 3.5-5.1 mmol/L Chloride Level 112 98-107 mmol/L Carbon Dioxide Level 20 21-32 mmol/L Anion Gap 12.0 3-11 mmol/L Blood Urea Nitrogen 80 7-18 mg/dl Creatinine 5.30 0.60-1.40 mg/dl Est Creatinine Clear Calc Drug Dose 14.1 ml/min Estimated GFR () 10.9 Estimated GFR (Non- 9.4 BUN/Creatinine Ratio 15.0 10-20 Random Glucose 100 70-99 mg/dl Calcium Level 8.4 8.5-10.1 mg/dl
[2016-04-22 04:22] VITALS: BP 118/66; PULSE 68; TEMP 36.5; O2SAT 93
[2016-04-22] MEDS ORDERED: PERFLUTREN LIPID MICROSPHERE (DEFINITY) IV ONE (07:37)
[2016-04-22 07:44] LABS: BUN/CREATININE RATIO 14.5 (10-20); CALCIUM 8.4 mg/dl (8.5-10.1); CREATININE 5.6 mg/dl (0.60-1.40); MAGNESIUM 2.7 mg/dl (1.8-2.4); POTASSIUM 4.3 mmol/L (3.5-5.1)
[2016-04-22 07:57] VITALS: BP 138/78; PULSE 67; TEMP 36.6; O2SAT 97
[2016-04-22] MEDS: CALCIUM ACETATE 667MG GELCAP PO SCH ×2 (08:10→11:21)
[2016-04-22] MEDS: FUROSEMIDE 20 MG TAB PO SCH (08:11)
[2016-04-22] MEDS: LOSARTAN POTASSIUM 50 MG TAB PO SCH (08:11)
[2016-04-22] MEDS: CALCITRIOL 0.25 MCG CAP PO SCH (08:12)
[2016-04-22] MEDS: ALLOPURINOL 300 MG TAB PO SCH (08:12)
[2016-04-22] MEDS: CHOLECALCIFEROL 1000 INTER.UNIT TAB PO SCH (08:13)
[2016-04-22] MEDS: ASPIRIN 81 MG ECTAB PO SCH (08:13)
[2016-04-22] MEDS: TAMSULOSIN HCL 0.4 MG CAP PO SCH (08:13)
[2016-04-22] MEDS ORDERED: METOPROLOL SUCC 25MG EXT REL TAB PO SCH (09:00)
--- NOTE | 2016-04-22 09:01 | ECHOCARDIOGRAM REPORT ---
*NOTICE TO RECEIVING REPUBLICAN AGENCY This information is strictly Confidential and protected under [place] law. [place] law prohibits you from making any further disclosure of this information unless further disclosure is expressly permitted by the written consent of the person to whom it pertains or is authorized by law. A general authorization for the release of medical or other information is not sufficient for this purpose. Hospital accepts no responsibility if the information is made available to any other person, INCLUDING THE PATIENT. Interpretation Summary * Name: AIDEN OCHOA Study Date: 04/22/2016 06:57 AM BP: 134/75 mmHg * Patient Location: C.2T\S\S241\S\2 HR: 69 * : 1935 (M/d/yyyy) Gender: Male Height: 70 in * Age: 81 yrs Ethnicity: CA Weight: 251 lb * Ordering Physician: Morena Lr * Performed By: Iram Prabhakar RDCS * * Reason For Study: Cardiac arrythmia * BSA: 2.3 m2 * The study was technically adequate. * There is no comparison study available. * -- Conclusions -- * Left ventricular systolic function is normal. * Ejection Fraction = 55-60%. * Grade I diastolic dysfunction, (abnormal relaxation pattern). * The right ventricle is mildly dilated. * The right ventricular systolic function is normal. * Aortic valve sclerosis mild, without significant aortic valvular stenosis. Procedure Details * A complete two-dimensional transthoracic echocardiogram was performed (2D, M-mode, Doppler and color flow Doppler). * A contrast injection of Definity was performed to improve assessment of LV function. * Contrast was injected into an intravenous site in the right arm. * One vial of Definity ultrasound contrast was diluted in normal saline to a total volume of 10 ml. A total of '2' ml of solution was administered during imaging. * Lot # [id number] of Definity utilized for procedure. * Expiration date MAR 12. * The attending nurse who injected the contrast agent was Carolyn Boss RN. Left Ventricle * The left ventricle is normal in size. * There is normal left ventricular wall thickness. * Ejection Fraction = 55-60%. * Left ventricular systolic function is normal. * The left ventricular wall motion is normal. Right Ventricle * The right ventricle is mildly dilated. * The right ventricular systolic function is normal as assessed by tricuspid annular plane systolic excursion (TAPSE) (normal >1.5 cm). * The right ventricular systolic function is normal. Atria * The left atrial size is normal. * Right atrial size is normal. * There is no evidence of atrial septal defect, but resolution does not allow assessment for a patent foramen ovale. Mitral Valve * The mitral valve is normal. * There is no mitral valve stenosis. * Significant mitral regurgitation is absent. Tricuspid Valve * The tricuspid valve is normal. * There is no tricuspid stenosis. * Significant tricuspid regurgitation is absent. Aortic Valve * The aortic valve is trileaflet. * Aortic valve sclerosis mild, without significant aortic valvular stenosis. * Aortic stenosis is absent. * There is no significant aortic regurgitation. Pulmonic Valve * The pulmonary valve is not well seen, but the Doppler examination is normal without significant regurgitation or stenosis. Great Vessels * The aortic root is normal size. Pericardium/Pleural * There is no pericardial effusion. Great Vessels * Dilated inferior vena cava with reduced collapsability with sniff indicates an elevated right atrial pressure of 15 mmHg Left Ventricular Diastolic Function * Grade I diastolic dysfunction, (abnormal relaxation pattern). MMode 2D Measurements and Calculations IVSd 0.98 cm LVIDd 4.8 cm LVIDs 3.0 cm LVPWd 1.1 cm IVS/LVPW 0.92 FS 36.1 % EDV(Teich) 105.4 ml ESV(Teich) 36.2 ml EF(Teich) 65.6 % EDV(cubed) 107.8 ml ESV(cubed) 28.2 ml EF(cubed) 73.9 % LV mass(C)d 174.1 grams LV mass(C)dI 75.8 grams/m\S\2 CO(Teich) 4.8 l/min CI(Teich) 2.1 l/min/m\S\2 SV(Teich) 69.2 ml SI(Teich) 30.1 ml/m\S\2 CO(cubed) 5.5 l/min CI(cubed) 2.4 l/min/m\S\2 SV(cubed) 79.6 ml SI(cubed) 34.6 ml/m\S\2 Ao root diam 3.8 cm Ao root area 11.5 cm\S\2 ACS 2.1 cm asc Aorta Diam 3.3 cm LVOT diam 2.0 cm LVOT area 3.1 cm\S\2 LVAd ap4 46.0 cm\S\2 LVLd ap4 9.8 cm EDV(MOD-sp4) 176.0 ml LVAs ap4 24.9 cm\S\2 LVLs ap4 8.1 cm ESV(MOD-sp4) 63.1 ml EF(MOD-sp4) 64.1 % LVAd ap2 34.5 cm\S\2 LVLd ap2 8.9 cm EDV(MOD-sp2) 111.0 ml LVAs ap2 18.2 cm\S\2 LVLs ap2 7.6 cm ESV(MOD-sp2) 39.1 ml EF(MOD-sp2) 64.8 % CO(MOD-sp4) 7.8 l/min CI(MOD-sp4) 3.4 l/min/m\S\2 SV(MOD-sp4) 112.9 ml SI(MOD-sp4) 49.1 ml/m\S\2 CO(MOD-sp2) 5.0 l/min CI(MOD-sp2) 2.2 l/min/m\S\2 SV(MOD-sp2) 71.9 ml SI(MOD-sp2) 31.3 ml/m\S\2 Doppler Measurements and Calculations MV E max shanae 104.8 cm/sec MV A max shanae 112.0 cm/sec MV E/A 0.94 MV dec time 0.23 sec Ao V2 max 154.7 cm/sec Ao max PG 9.6 mmHg Ao max PG (full) 2.3 mmHg KALYANI(V,A) 2.7 cm\S\2 KALYANI(V,D) 2.7 cm\S\2 LV V1 max PG 7.3 mmHg LV V1 max 134.8 cm/sec PA V2 max 97.9 cm/sec PA max PG 3.8 mmHg PA acc slope 261.5 cm/sec\S\2 PA acc time 0.17 sec TR max shanae 162.1 cm/sec PA pr(Accel) 1.4 mmHg
--- NOTE | 2016-04-22 09:16 | Cardiology Follow-Up ---
Subjective General Date of Service: Apr 22, 2016. Pt evaluation today including: conversation w/ patient, physical exam, chart review, lab review, review of studies, review of inpatient medication list History of Present Illness The patient is a 81 year old male seen in follow up. No complaints. No recurrent pauses on telemetry. Denies CP, SOB, palpitations, lightheadedness,or dizziness. Allergies Coded Allergies: Latex (Verified Allergy, Severe, REDNESS, 04/20/16) Prednisone (Verified Allergy, Severe, HYPOTENSION, ABDOMINAL PAIN, 04/20/16 ) RIKI Inhibitors (Verified Adverse Reaction, Unknown, COUGH, 04/20/16) Social History Smoking Status: Never Smoker Hx Tobacco Use In Past Year?: No Hx Alcohol Use - Type And Amou: No Hx Substance Use - Type And Am: No Review of Systems Respiratory: No cough, No dyspnea at rest, No hemoptysis, No shortness of breath, No wheezing Cardiac: No PND, No chest pain, No edema, No palpitations Physical Exam Vital Signs Last Vital Signs Documentation Date Time Temp Pulse Resp B/P Pulse Ox O2 Delivery O2 Flow Rate FiO2 04/22/16 07:57 36.6 67 20 138/78 97 Room Air 04/20/16 14:15 2 Physical Exam Constitutional: General Apperance: well-developed, obese Level of Distress: NAD Head: normocephalic, atraumatic Eyes: Pupils: PERRLA ENMT: normal ENT inspection Neck: supple, trachea midline Lungs: Auscultation: breath sounds normal, no wheezing, no rales/crackles, no rhonchi Cardiovascular: Heart Auscultation: RRR, normal S1, normal S2, no murmurs, no rubs, no gallops Peripheral Pulses: Radial Pulse: normal on the left, normal on the right Abdomen: Bowel Sounds: normal Inspection & Palpation: soft, non-distended, no tenderness, guarding & rebound Extremities: no cyanosis, no edema, no clubbing, no ulcers Neurologic: Gait & Station: pertinent finding (No focal motor deficit) Cranial Nerves: grossly intact Assessment and Plan Assessment and Plan 1. An 81-year-old male with sinus node dysfunction and asymptomatic 3-3.2 second pauses noted postoperatively. - resolved - cardiazem and atenolol discontinued - tolerating low dose toprol XL 2. 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 3. Hypertensive heart disease - blood pressure controlled. 4. Severe obstructive sleep apnea/hypopnea syndrome. 5. Chronic kidney disease, stage V with metabolic derangement. PLAN AND RECOMMENDATIONS: Atenolol and cardizem discontinued. Continue toprol XL 25mg daily. Echo reviewed - preserved LV function with mild aortic sclerosis. Will schedule outpatient cardiology follow up in one week. Will sign off. Please call with questions. Laboratory Results Last 24 Hours Test 04/21/16 10:59 04/22/16 06:24 White Blood Count 8.58 K/uL Red Blood Count 3.45 M/uL Hemoglobin 9.7 g/dL Hematocrit 30.9 % Mean Corpuscular Volume 89.6 fL Mean Corpuscular Hemoglobin 28.1 pg Mean Corpuscular Hemoglobin Concent 31.4 g/dl RDW Standard Deviation 50.6 fL RDW Coefficient of Variation 15.4 % Platelet Count 224 K/uL Mean Platelet Volume 9.8 fL Sodium Level 144 mmol/L 144 mmol/L Potassium Level 4.4 mmol/L 4.3 mmol/L Chloride Level 112 mmol/L 112 mmol/L Carbon Dioxide Level 20 mmol/L 21 mmol/L Anion Gap 12.0 mmol/L 11.0 mmol/L Blood Urea Nitrogen 80 mg/dl 81 mg/dl Creatinine 5.30 mg/dl 5.60 mg/dl Est Creatinine Clear Calc Drug Dose 14.1 ml/min 13.3 ml/min Estimated GFR () 10.9 10.2 Estimated GFR (Non- 9.4 8.8 BUN/Creatinine Ratio 15.0 14.5 Random Glucose 100 mg/dl 91 mg/dl Calcium Level 8.4 mg/dl 8.4 mg/dl Magnesium Level 2.7 mg/dl
[2016-04-22] MEDS ORDERED: TPRSR25 PO (10:50)
[2016-04-22] MEDS: ACETAMINOPHEN 325 MG TAB PO PRN (11:20)
[2016-04-22 11:48] VITALS: BP 138/78; PULSE 67; TEMP 36.6; O2SAT 97
--- NOTE | 2016-04-22 19:30 | Progress Note ---
Internal Med Progress Note Date of Service: Apr 22, 2016. Provider Documentation: SUBJECTIVE: resting comfortably denies chest pain or sob' afebrile no nausea or abdominal pain want to be discharged OBJECTIVE: Vital Signs-as noted below Exam: General-alert and oriented ENT-normal hearing Neck-no neck masses Lungs-cta b/l no wheezing or crackles Heart-s1 and s2 heard regular rate and rhythm no murmurs Abdomen-soft bowel sounds present non tender no distension Extremities-no erythema Neuro-alert and awake moves extremities Lab data as noted below. ASSESSMENT & PLAN: SINUS PAUSES Asymptomatic Possibly secondary to anesthesia- occurred post procedure for vascular access for future HD No prior history of sinus pause Cardizem and Atenolol are on hold Consult cardiology- appreciate input No more Pauses noted echo unremarkable started on low dose Toprol xl f/u with cardiology CKD STAGE 5 Not on HD; had procedure for vascular access by vascular surgery nephrology consulted f/u as out patient HYPERTENSION BP is running 90s-100s systolic stopped atenolol and Cardizem for sinus pause/ bradycardia Continue hydralazine and losartan started on low dose Toprol xl f/u with PCP and cardiology ORLIN Continue CPAP discharged home Vital Signs: Date Time Temp Pulse Resp B/P Pulse Ox O2 Delivery O2 Flow Rate FiO2 04/22/16 11:48 36.6 67 20 97 Nasal Cannula 04/22/16 07:57 36.6 67 20 138/78 97 Room Air 04/22/16 04:22 36.5 68 18 118/66 93 CPAP 04/22/16 04:00 Room Air 04/21/16 23:59 Room Air 04/21/16 23:25 36.6 74 18 142/63 96 CPAP 04/21/16 20:00 Room Air Lab Results: Results Past 24 Hours Test 04/22/16 06:24 Range/Units Sodium Level 144 136-145 mmol/L Potassium Level 4.3 3.5-5.1 mmol/L Chloride Level 112 98-107 mmol/L Carbon Dioxide Level 21 21-32 mmol/L Anion Gap 11.0 3-11 mmol/L Blood Urea Nitrogen 81 7-18 mg/dl Creatinine 5.60 0.60-1.40 mg/dl Est Creatinine Clear Calc Drug Dose 13.3 ml/min Estimated GFR () 10.2 Estimated GFR (Non- 8.8 BUN/Creatinine Ratio 14.5 10-20 Random Glucose 91 70-99 mg/dl Calcium Level 8.4 8.5-10.1 mg/dl Magnesium Level 2.7 1.8-2.4 mg/dl
--- NOTE | 2016-04-22 19:37 | Discharge Summary ---
Discharge Summary Admission Date: Apr 20, 2016 at 14:49 Discharge Date: Apr 22, 2016 Discharge Disposition: Home Principal Diagnosis: sinus pauses Secondary Diagnoses/Problems: (1) Benign neoplasm of colon Status: Chronic (2) BPH (benign prostatic hypertrophy) Status: Chronic (3) CKD (chronic kidney disease), stage V Status: Chronic (4) Gout Status: Chronic (5) Malignant neoplasm of kidney Status: Chronic (6) MGUS (monoclonal gammopathy of unknown significance) Status: Chronic (7) ORLIN on CPAP Status: Chronic (8) S/p nephrectomy Status: Chronic (9) Solitary kidney Status: Chronic (10) Thoracic aortic aneurysm Status: Chronic (11) TIA (transient ischemic attack) Status: Chronic Procedures: ECHO: * Left ventricular systolic function is normal. * Ejection Fraction = 55-60%. * Grade I diastolic dysfunction, (abnormal relaxation pattern). * The right ventricle is mildly dilated. * The right ventricular systolic function is normal. Aortic valve sclerosis mild, without significant aortic valvular stenosis Consultations: CARDIOLOGY NEPHROLOGY VASCULAR SURGERY Medication Reconciliation New Medications: Metoprolol Succinate (Metoprolol Succinate ER) 25 Mg Tabcr 25 MG PO QAM, #30 2 Refills Continued Medications: Allopurinol (Zyloprim *) 300 Mg Tab 300 MG PO QAM Aspirin (Aspirin Ec) 81 Mg Tab 81 MG PO QAM Calcitriol (Calcitriol) 0.25 Mcg Cap 0.25 MCG PO QAM Calcium Acetate (Phoslo 667 Mg) 667 Mg Cap 1 CAP PO TIDM, CAP Cholecalciferol (Vitamin D 1000 Unit) 1,000 Unit Cap 1000 INTER.UNIT PO QAM, CAP Furosemide (Lasix) 40 Mg Tab 20 MG PO QAM, TAB Hydralazine Hcl (Apresoline) 50 Mg Tab 50 MG PO BID, TAB Losartan Potassium (Cozaar *) 100 Mg Tab 100 MG PO QAM, 0 Refills Tamsulosin Hcl (Flomax *) 0.4 Mg Cap 0.4 MG PO QAM, 0 Refills Discontinued Medications: Atenolol (Tenormin) 25 Mg Tab 12.5 MG PO QAM, 0 Refills Diltiazem Hcl Cd (Cardizem Cd *) 240 Mg Capcr 240 MG PO QAM Admission Information HPI (per Admitting provider): This is an 81 year old male with PMH of CKD stage 5 not on dialysis, solitary kidney, hx right nephrectomy for kidney cancer, thoracic aortic aneurysm, gout, MGUS, BPH, who underwent LUE basilic vein transposition second stage today Dr. Lin. Postoperatively in PACU patient was noted to have frequent sinus pause up to 3 seconds which were asymptomatic. Patient then returned to sinus bradycardia with 1st degree AV block. Patient states he is having some mild postop pain in the LUE. Patient denies any dizziness, chest pain, palpitations, SOB, recent bowel or bladder changes. He denies history of CAD or arrhythmia. Patient's prior EKG from 2015 showed sinus bradycardia with 1st degree AV block and RBBB. Physical Exam (per Admitting): General Appearance: WD/WN, no apparent distress, + pertinent finding (alert 81 year old male, lying in bed in PACU) Head: normocephalic, atraumatic Eyes: normal inspection, sclerae normal ENT: hearing grossly normal Neck: supple, trachea midline Respiratory/Chest: lungs clear, normal breath sounds, no respiratory distress, no accessory muscle use Cardiovascular: no murmur, + bradycardia (regular rhythm, rate 50s ) Abdomen/GI: normal bowel sounds, non tender, soft Extremities/Musculoskelatal: no calf tenderness, + pertinent finding (left radial pulse 2+. mild edema of LUE.) Neurologic/Psych: alert, normal mood/affect, oriented x 3, + pertinent finding (grossly nonfocal ) Skin: normal color, warm/dry, + pertinent finding (incision site appears clean/dry with char intact, no erythema or drainage) Physical Exam (per Admitting): General Appearance: WD/WN, no apparent distress, + pertinent finding (alert 81 year old male, lying in bed in PACU) Head: normocephalic, atraumatic Eyes: normal inspection, sclerae normal ENT: hearing grossly normal Neck: supple, trachea midline Respiratory/Chest: lungs clear, normal breath sounds, no respiratory distress, no accessory muscle use Cardiovascular: no murmur, + bradycardia (regular rhythm, rate 50s ) Abdomen/GI: normal bowel sounds, non tender, soft Extremities/Musculoskelatal: no calf tenderness, + pertinent finding (left radial pulse 2+. mild edema of LUE.) Neurologic/Psych: alert, normal mood/affect, oriented x 3, + pertinent finding (grossly nonfocal ) Skin: normal color, warm/dry, + pertinent finding (incision site appears clean/ dry with char intact, no erythema or drainage) Hospital Course Patient underwent LUE basilic vein transposition second stage today Dr. Lin. Postoperatively in PACU patient was noted to have frequent sinus pause up to 3 seconds which were asymptomatic SINUS PAUSES Asymptomatic Possibly secondary to anesthesia- occurred post procedure for vascular access for future HD No prior history of sinus pause Cardizem and Atenolol are on hold Consult cardiology- appreciate input No more Pauses noted echo unremarkable started on low dose Toprol xl f/u with cardiology CKD STAGE 5 Not on HD; had procedure for vascular access by vascular surgery nephrology consulted f/u as out patient HYPERTENSION BP is running 90s-100s systolic stopped atenolol and Cardizem for sinus pause/ bradycardia Continue hydralazine and losartan started on low dose Toprol xl f/u with PCP and cardiology ORLIN Continue CPAP discharged home Total time spent on discharge = 35MINUTES This includes examination of the patient, discharge planning, medication reconciliation, and communication with other providers. Discharge Instructions Please take this sheet to every appointment for the next month Discharge Instructions Visit Reason for Visit: End Stage Renal Disease Discharge Discharge Diagnosis / Problem: End stage renal disease Discharge Goals Goal(s): Therapeutic intervention Activity Recommendations Activity Limitations: per Instructions/Follow-up section Anesthesia . Post Anesthesia Instructions: If you have had General Anesthesia or IV Sedation: * Do not drive today. * Resume driving when surgeon permits. * Do not make important decisions or sign legal documents today. * Call surgeon for: 1. Temperature elevations greater than 101 degrees F. 2. Uncontrollable pain. 3. Excessive bleeding. 4. Persistent nausea and vomiting. 5. Medication intolerance (nausea, vomiting or rash). * For nausea and vomiting use only clear liquids such as: tea, soda, bouillon until nausea subsides, then gradually increase diet as tolerated. * If you have any concerns or questions, call your surgeon's office. If physician is unavailable and it is an emergency, call 911 or go to the nearest emergency room. . Instructions / Follow-Up Instructions / Follow-Up Call [phone] to schedule a follow up appointment if one not already scheduled. ACTIVITY RECOMMENDATIONS: See Above SPECIAL CARE INSTRUCTIONS: Call your doctor if: * Temperature above 101 degrees * Pain not relieved by pain medicine ordered * There is increased drainage or redness from any incision * You have any unanswered questions or concerns. Diet Recommendations Recommended Home Diet: resume previous diet Procedures Procedures Performed: Left upper extremity basilic vein transposition second stage Pending Studies Studies pending at discharge: no Medical Emergencies . Who to Call and When: Medical Emergencies: If at any time you feel your situation is an emergency, please call 911 immediately. . Non-Emergent Contact Non-Emergency issues call your: Surgeon . . "Provider Documentation" section prepared by Maxime Lin. <Electronically signed by Maxime Lin M.D.> Signed: 04/20/16 1229 Signed: The status of this report is Signed * If report status is Draft, the document has not been finalized by the responsible provider. Addendum: 04/22/16 1052 Addendum: Ismael Schuster MD on 04/22/16 @ 10:52 Discharge Inst - Addendum Addendum Notes: FOLLOWUP WITH FAMILY DOCTOR ON Mar 11:10AM FOLLOWUP WITH CARDIOLOGY IN ONE WEEK SCHEDULED Addendum Provider: Addendum Notes were documented by provider Ismael Schuster. (Ismael Schuster MD) Signed: 04/20/16 1227
[2016-04-25] MEDS ORDERED: CALCIUM ACETATE 667MG GELCAP PO SCH (08:00)
--- NOTE | 2016-05-20 09:54 | OPERATIVE REPORT ---
DATE OF OPERATION: 04/20/2016 PREOPERATIVE DIAGNOSIS: Endstage renal disease. POSTOPERATIVE DIAGNOSIS: Same. PROCEDURE: Left upper extremity basilic vein transposition second stage. SURGEON: Dr. Lin. FUR FINISHER SEAMSTRESS: Sanjuana Ralph PA-C. ANESTHETIC: General. PROCEDURE INDICATIONS: The patient is an 81-year-old gentleman who had a left upper arm basilic vein fistula created. He is now here for transposition of the fistula, so it could be accessed. He understood the risks, options and benefits and agreed to have this procedure. OPERATION AND FINDINGS: The patient was taken to operating room and placed in supine position. After general anesthesia was administered, the left arm was prepped and draped in a sterile manner. An incision was made over the fistula at the proximal anastomosis. The incision was carried up to the anterior axillary line. The entire fistula was exposed. It was good caliber throughout. All side branches were then ligated and divided. Once this was done, the proximal portion of the fistula was clamped and transected. A subcutaneous tunnel was made and the fistula was passed through the tunnel. The proximal end of the fistula which was transected was ligated. Next, the brachial artery was clamped proximally and distally just above the elbow. A longitudinal arteriotomy was then made. The fistula was then anastomosed through the brachial artery with a running 6-0 Prolene suture in the usual vascular fashion. Prior to completing the closure, backbleeding and forward bleeding was allowed to occur and the final few sutures were placed and securely tied. Clamps were removed. Excellent flow was seen through the fistula. Adequate hemostasis was noted of the wound. After this was noted, the wound was closed in the usual fashion using running 3-0 Vicryl suture for subcutaneous layer and char for the skin. Sterile dressings were applied to the wound. The patient left the operating room in satisfactory condition and tolerated the procedure well. Sanjuana Ralph assisted due to lack of resident availability. I attest to the content of the Intraoperative Record and any orders documented therein. Any exceptions are noted below. ANYID
--- NOTE | 2016-05-30 11:41 | EDITING REQUIRED CODING QUERY ---
CODING QUERY To promote full compliance with coding requirements relating to patient care, provider participation is requested in all cases of agronomy supervisor uncertainty. Please assist us with the question(s) below: Coding Question(s): Chronic Kidney Disease was documented as 4, 5, and ESRD, please specify the degree of chronic kidney disease: Physician's Response(s): ____ CKD Stage 4 _x___ CKD Stage 5 ____ ESRD ____ Other: Please Specify Thank you Christen Vega Principal Diagnosis: "_that condition established after study, to be chiefly responsible for occasioning the admission of the patient to the hospital for care." Co-Existing Principal Diagnosis: "_when two or more diagnoses equally meet the criteria for principal diagnosis as determined by the circumstances of admission, diagnostic work up, and/or therapy provided, and the Alphabetic Index, Tabular List, or another coding guideline does not provide sequencing direction, any one of the diagnoses may be sequenced first." "When the physician has documented what appears to be a current diagnosis in the body of the record, but has not included the diagnosis in the final diagnostic statement, the physician should be asked whether the diagnosis should be added." (Source [facility]oding [facility] 2 QTR90. p3-4)
== END 2016-04-22 12:29 | disposition home or self-care (01) | DRG 253 ==
LOC: ENRESERVDT → ENRESERVTM → C.ACU 08:24 → C.2T 14:49
PROVIDERS: ADMIT Hospitalist; ATTEND Internal Medicine
PROC: 05SC0ZZ Reposition Left Basilic Vein, Open Approach (ICD-10-PCS; principal; 2016-04-20 10:00)
DX: I45.5 Other specified heart block (principal); I12.0 Hypertensive chronic kidney disease with stage 5 chronic kidney disease or end stage renal disease; N18.5 Chronic kidney disease, stage 5; I45.10 Unspecified right bundle-branch block; I44.0 Atrioventricular block, first degree; T41.0X5A Adverse effect of inhaled anesthetics, initial encounter; G47.33 Obstructive sleep apnea (adult) (pediatric); N40.0 Benign prostatic hyperplasia without lower urinary tract symptoms; D47.2 Monoclonal gammopathy; E66.9 Obesity, unspecified; Z79.82 Long term (current) use of aspirin; Z79.899 Other long term (current) drug therapy; Z88.8 Allergy status to other drugs, medicaments and biological substances; Z90.5 Acquired absence of kidney; Z91.040 Latex allergy status; Z85.828 Personal history of other malignant neoplasm of skin; Z85.528 Personal history of other malignant neoplasm of kidney; Z80.0 Family history of malignant neoplasm of digestive organs; Z84.1 Family history of disorders of kidney and ureter

== ENCOUNTER 2024-04-30 11:37 | Inpatient (IN) ==
[2024-04-30 12:35] LABS: Basophils # (auto) 0.06 K/uL (0.00-0.20); Basophils % (auto) 0.6 %; Eosinophils # (auto) 0.31 K/uL (0.00-0.50); Eosinophils % (auto) 3.4 %; Hematocrit (blood only) 39.3 % (42.0-52.0); Immature Granulocytes # (auto) 0.04 K/uL (0.01-0.20); Immature Granulocytes % (auto) 0.4 %; Lymphocytes # (auto) 1.19 K/uL (1.20-3.40); Lymphocytes % (auto) 12.9 %; Mean Corpuscular Hemoglobin 28.6 pg (25.0-34.0); Mean Corpuscular Hgb Conc 33.1 g/dL (32.0-36.0); Mean Corpuscular Volume 86.6 fL (80.0-100.0); Mean Platelet Volume 9.2 fL (9.4-12.4); Monocytes % (auto) 7.6 %; Neutrophils # (auto) 6.95 K/uL (1.40-6.50); Neutrophils % (auto) 75.1 %; Platelet Count 228 K/uL (130-400); RDW Coefficient of Variation 14.1 % (11.5-14.5); RDW Standard Deviation 44.6 fL (36.4-46.3); Red Blood Count 4.54 M/uL (4.70-6.10); White Blood Count 9.25 K/ul (4.8-10.8)
--- NOTE | 2024-04-30 12:55 | Emergency Department Note ---
History of Present Illness General Chief complaint: Rectal Bleed Stated complaint: RECTAL BLEED Time Seen by Provider: 04/30/24 12:35 History of Present Illness Provider Complaint: + gross hematochezia Onset (ago): 2 day(s) Relieved By: + none Exacerbated By: + bowel movement Context: + hemorrhoids; no liver disease, no swallowed FB, no rectal trauma or no anticoagulant use Associated symptoms: no abdominal pain, no nausea, no vomiting, no epistaxis, no fever, no chills, no headaches or no shortness of breath Home Medications Medication Instructions Recorded Confirmed Type aspirin 81 mg tablet,delayed 81 mg PO DAILY 07/25/23 04/30/24 History release finasteride 5 mg tablet 5 mg PO DAILY #90 tabs 02/06/24 04/30/24 Rx lanthanum 500 mg chewable tablet 500 mg PO TIDM 04/30/24 04/30/24 History (Fosrenol) vitamin B complex and vitamin C 1 cap PO DAILY 04/30/24 04/30/24 History no.20-folic acid 1 mg capsule (Triphrocaps) Allergies Allergy/AdvReac Type Severity Reaction Status Date / Time latex Allergy Severe REDNESS ON Verified 12/17/23 10:31 SKIN prednisone Allergy Severe HYPOTENSION, Verified 12/17/23 10:31 ABDOMINAL PAIN RIKI Inhibitors AdvReac Intermediate COUGH Verified 12/17/23 10:31 Iodinated Contrast Media AdvReac Unknown pt only Verified 12/17/23 10:31 has 1 kidney so is not supposed to have contrast Bandaid Allergy Intermediate SKIN Uncoded 12/17/23 10:31 IRRITATION--PLASTIC BANDAIDS Past Med/Surg History Problem List (Updated 04/30/24 @ 17:31 by Artis Norris MD) GI bleed (Acute) Hypoxia Rectal bleeding ORLIN on CPAP (Chronic) Malignant neoplasm of kidney (Chronic) 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/p nephrectomy (Chronic) Benign neoplasm of colon (Chronic) Gout (Chronic) Thoracic aortic aneurysm (Chronic) History of cataract surgery (Chronic) S/P appendectomy (Chronic) H/O colonoscopy with polypectomy (Chronic) History of adenomatous polyp of colon Hypertension Renal cell carcinoma (Acute) Impacted cerumen of left ear CKD (chronic kidney disease), stage V (Chronic) Sensorineural hearing loss (SNHL) of right ear with restricted hearing of left ear Sensorineural hearing loss of both ears Medical History (Updated 04/30/24 @ 17:31 by Artis Norris MD) ESRD (end stage renal disease) on dialysis History of COVID-2021--mild symptoms, no symptoms now BPH (benign prostatic hyperplasia) Arthritis Gout Hemodialysis patient MONDAY/MONDAY/MONDAY at [facility] SINCE 11/2017 F/U DR RODRIGUEZ Sleep apnea CPAP HS Aortic aneurysm UNDER OBSERVATION-F/U DR SAENZ Transient ischemic attack (TIA) AGE 50 NO ISSUES SINCE Surgical History History of anesthesia reaction PER PT WAS TOLD-EPISODE POST OP AVF SURGERY-"PAUSE" IN HEART-ATTRIBUTED TO MEDICATIONS TAKEN COMBINED WITH ANESTHESIA GIVEN-NO ISSUES SINCE History of vascular access device AV FISTULA LEFT UPPER ARM-2 SURGERIES History of colonoscopy X MULTIPLE--last 2018 @ [facility] History of cataract surgery R/L History of appendectomy Cancer RIGHT NEPHRECTOMY Family History Brother Family hx of colon cancer Hypertension Father Family hx of colon cancer Sister Cancer Other No family history of adverse response to anesthesia No family history of bleeding disorder Social History Smoking Status: Never smoker Second Hand Exposure: Yes (FATHER SMOKED); Do You Dip or Chew Tobacco: No; Hx Alcohol Use: No Hx Substance Use: No Preferred Language: Serbian Communication Ability: Effective Staffing Analyst Required: No Beliefs That Will Affect Care: None Current Living Situation: Spouse Current Living Situation Comment: lives in [facility] with first floor living ability Other Information That Helps Us Care for You: No Feels Safe at Home: Yes Assistive Devices: Cane, CPAP, Denture - Upper, Denture - Lower, Glasses and Hearing Aid - Bilateral Physical Exam 2 Vital Signs: Vital Signs - 24 hr 04/30/24 11:52 04/30/24 12:38 04/30/24 12:49 Temperature 36.7 C Temperature Source Temporal Artery Sc an Pulse Rate 93 H 91 H 86 Pulse Rate from Sp O2 Sensor Respiratory Rate 18 22 Blood Pressure 133/66 117/82 Blood Pressure Rhonda n 88 96 Pulse Oximetry 93 Oxygen Delivery Me thod Room Air Oxygen Flow Rate Sepsis Recent Feve r Within 48 Hours No Sepsis New/Unexpla ined Change in Men penny Status N/A Sepsis Action Take n by Nursing No Action Required Oxygen Flow Rate - Titration Pulse Oximetry Pos t Tiitration 04/30/24 13:03 04/30/24 13:04 04/30/24 14:00 Temperature Temperature Source Pulse Rate 82 79 Pulse Rate from Sp O2 Sensor 82 Respiratory Rate 13 Blood Pressure 124/68 118/77 Blood Pressure Rhonda n 86 85 Pulse Oximetry 92 88 L 94 Oxygen Delivery Me thod Nasal Cannula Nasal Cannula Oxygen Flow Rate 2 0 Sepsis Recent Feve r Within 48 Hours Sepsis New/Unexpla ined Change in Men penny Status Sepsis Action Take n by Nursing Oxygen Flow Rate - Titration 2 Pulse Oximetry Pos t Tiitration 92 Physical Exam: Physical Exam GENERAL: oriented to person, place, and time. appears well-developed and well- nourished. She does not appear distressed. HENT: Exam performed. -Head: Normocephalic and atraumatic. -Right Ear: External ear normal. No mastoid erythema -Left Ear: External ear normal. No mastoid erythema -Mouth/Throat: The oropharynx is clear and moist. No trismus in the jaw. No dental abscesses or uvula swelling. No oropharyngeal exudate or tonsillar abscesses. EYES: Conjunctivae and EOM are normal.Right eye exhibits no discharge. Left eye exhibits no discharge. No scleral icterus. NECK: Normal range of motion. Neck supple. No JVD present. No tracheal deviation and normal range of motion present. CV: Normal rate, regular rhythm, normal heart sounds and intact distal pulses. There is no peripheral edema. Palpable radial pulses bue. PULM/CHEST: Effort normal and breath sounds normal. No respiratory distress. No stridor. no wheezes.no rales. -Chest Wall: no tenderness to palpation ABD: The abdomen is soft. Bowel sounds are normal. no distension. No mass is present. There is no tenderness. There is no rebound, no guarding, no Mcmahan's sign and no tenderness at McBurney's point. Rovsig negative Rectal: Small internal hemorrhoid. No bright red blood per rectum. No melena. Hemoccult negative. MUSC/SKEL: Normal range of motion. There is no peripheral edema, tenderness or deformity. AV fistula left upper extremity with palpable thrill. NEURO: Motor and sensation grossly intact. SKIN: Skin is warm and dry. not diaphoretic. PSYCH: normal mood and affect. Behavior is normal. Judgment and thought content normal. Course Course 1235: The patient was evaluated in room B4. A complete history and physical exam was performed Cardiac monitoring: An order was placed for continuous cardiac monitoring. The monitor shows a rate of 90 with sinus rhythm interpreted by me 1305: Patient became hypoxic on room air supplemental oxygen was applied which improved patient's oxygen saturation 1400: Vital signs stable. Labs and imaging are unremarkable. Patient will be observed under [facility] team for GI bleed for serial hemoglobins monitoring for GI bleed. Medical Decision Making Laboratory Data Attestation: I reviewed the patient's lab results. 04/30/24 12:06 04/30/24 12:06 Lab Results 04/30/24 04/30/24 Range/Units 12:06 14:10 WBC 9.25 (4.8-10.8) K/ul RBC 4.54 L (4.70-6.10) M/uL Hgb 13.0 L (14.0-18.0) g/dl Hct 39.3 L (42.0-52.0) % MCV 86.6 (80.0-100.0) fL MCH 28.6 (25.0-34.0) pg MCHC 33.1 (32.0-36.0) g/dL RDW Std Deviation 44.6 (36.4-46.3) fL RDW Coeff of Sophie 14.1 (11.5-14.5) % Plt Count 228 (130-400) K/uL MPV 9.2 L (9.4-12.4) fL Immature Gran % (Auto) 0.4 % Neut % (Auto) 75.1 % Lymph % (Auto) 12.9 % Edgar % (Auto) 7.6 % Eos % (Auto) 3.4 % Baso % (Auto) 0.6 % Neut # (Auto) 6.95 H (1.40-6.50) K/uL Lymph # (Auto) 1.19 L (1.20-3.40) K/uL Edgar # (Auto) 0.70 H (0.11-0.59) K/uL Eos # (Auto) 0.31 (0.00-0.50) K/uL Baso # (Auto) 0.06 (0.00-0.20) K/uL Immature Gran # (Auto) 0.04 (0.01-0.20) K/uL PT 10.5 (9.0-12.0) Seconds INR 1.0 (0.9-1.1) APTT 26 (21-31) Seconds PTT Ratio 1.0 Sodium 140 (136-145) mmol/L Potassium 4.2 (3.5-5.1) mmol/L Chloride 93 L (98-107) mmol/L Carbon Dioxide 36 H (21-32) mmol/L Anion Gap 11 (3-11) BUN 37 H (6-23) mg/dl Creatinine 6.56 H* (0.6-1.4) mg/dl Est Cr Clr Drug Dosing 9.0 ml/min eGFR 7.58 BUN/Creatinine Ratio 5.6 L (10-20) Glucose 105 H (70-99(Fasting)) mg/dl Calcium 10.1 (8.6-10.3) mg/dl Total Bilirubin 0.8 (0.2-1.0) mg/dl AST 19 (13-39) U/L ALT 19 (7-52) U/L Alkaline Phosphatase 56 (34-104) U/L Troponin I High Sens 10.1 (0-20) pg/ml Total Protein 7.5 (6.0-8.3) gm/dl Albumin 4.1 (3.4-5.0) gm/dl Globulin 3.4 (2.5-4.0) gm/dl Albumin/Globulin Ratio 1.2 (0.9-2) SARS-CoV-2 (PCR) NEGATIVE (Negative) Influenza Type A (PCR) Negative (Neg) Influenza Type B (PCR) Negative (Neg) RSV (RT-PCR) Negative (Neg) Imaging Data Attestation: I personally reviewed and interpreted this imaging study as follows: My Impression: Chest x-ray negative. Airway clear. No pneumothorax. No consolidation. cardiomegaly No cephalization.. No free air under the diaphragm. No fractures of the skeletal structures. Radiologist's Impression: Chest X-Ray 04/30/24 13:08 XR chest 1V portable CLINICAL HISTORY: sob COMPARISON STUDY: 02/10/2016 FINDINGS: Stable mild cardiomegaly without pulmonary vascular congestion. No effusion or consolidation. IMPRESSION: No pneumonia seen. ACT 112: Negative or not required by law. Electronically signed by: Fernando Alan M.D. 04/30/2024 1:41 PM ECG Data Attestation: I personally reviewed and interpreted this ECG as follows: Rate (beats per minute): 90 Rhythm: normal sinus Findings: + 1st degree AV block and + RBBB; no ST depression, no ST elevation or no prolonged QT Additional Comments: GA 208 QRS 146 QTc 484. MDM Narrative 1235: The patient was evaluated in room B4. A complete history and physical exam was performed Cardiac monitoring: An order was placed for continuous cardiac monitoring. The monitor shows a rate of 90 with sinus rhythm interpreted by me 1305: Patient became hypoxic on room air supplemental oxygen was applied which improved patient's oxygen saturation 1400: Vital signs stable. Labs and imaging are unremarkable. Patient will be observed under [facility] hospitalist team for GI bleed for serial hemoglobins monitoring for GI bleed. Impression & Plan GI bleed Discharge Plan Visit Data Chief Complaint: Rectal Bleed Stated Complaint: RECTAL BLEED ED Provider: Artis Norris Discharge Problem: GI bleed Patient Disposition: Admitted As Inpatient Discharge Instructions Interventions: ED Discharge Assessment Last Done: 04/30/24 16:05
[2024-04-30 13:00] LABS: Albumin Globulin Ratio 1.2 (0.9-2); Albumin Level 4.1 gm/dl (3.4-5.0); BUN Creatinine Ratio 5.6 (10-20); Bilirubin,Total 0.8 mg/dl (0.2-1.0); Calcium 10.1 mg/dl (8.6-10.3); Globulin 3.4 gm/dl (2.5-4.0); Potassium 4.2 mmol/L (3.5-5.1); Total Protein 7.5 gm/dl (6.0-8.3)
[2024-04-30 13:01] LABS: Partial Thromboplastin Time 26 Seconds (21-31); Prothrombin Time 10.5 Seconds (9.0-12.0)
--- NOTE | 2024-04-30 13:42 | XRay Report ---
XR chest 1V portable CLINICAL HISTORY: sob COMPARISON STUDY: 02/10/2016 FINDINGS: Stable mild cardiomegaly without pulmonary vascular congestion. No effusion or consolidatio n. IMPRESSION: No pneumonia seen. ACT 112: Negative or not required by law. Electronically signed by: Fernando Alan M.D. 04/30/2024 1:41 PM
--- NOTE | 2024-04-30 14:18 | Electrocardiogram Report ---
Test Reason : Blood Pressure : */* mmHG Vent. Rate : 90 BPM Atrial Rate : 90 BPM P-R Int : 208 ms QRS Dur : 146 ms QT Int : 396 ms P-R-T Axes : 3 -23 -26 degrees QTcB Int : 484 ms Normal sinus rhythm Right bundle branch block Left ventricular hypertrophy Abnormal ECG When compared with ECG of 17-Mar-2023 16:02, No significant change was found Confirmed by Timothy Lorenzo ([id number]) on 04/30/2024 2:17:40 PM Referred By: REFERRED SELF Confirmed By: Timothy Lorenzo
[2024-04-30 15:04] LABS: Influenza A virus by PCR Negative (Neg); Influenza B virus by PCR Negative (Neg); RSV by PCR Negative (Neg); SARS CoV2 RNA(COVID-19) Ceph NEGATIVE (Negative)
--- NOTE | 2024-04-30 15:29 | History & Physical Report ---
Date of Service April 30, 2024 Assessment & Plan (1) Rectal bleeding: Plan: Admit to [facility] with telemetry Patient presenting from home with reports of rectal bleeding x 3 days In the ED, Hgb stable at 13.0, VSS Last colonoscopy in 2019 showing diverticulosis Likely diverticular bleed Trend H&H, GI consult (2) Hypoxia: Plan: Patient had a brief episode of hypoxia in the ED at 88% while on room air, place on 2L via NC CXR clear, patient denies respiratory symptoms During my exam, placed patient back on room air and he remained stable in the mid 90s Continue to monitor (3) ORLIN on CPAP: Plan: Continue HS BiPAP as per home settings (4) ESRD (end stage renal disease) on dialysis: Plan: HD MWF Nephro consult Continue usual routine renal medications Has required multiple angioplasties of fistula in the past, most recently 10/2023 - holding ASA due to GI bleeding (5) Aortic aneurysm: Plan: Ascending aorta measured 4.6 cm on echo 02/2024 DVT PROPHYLAXIS SCDs due to GI bleeding Patient seen in collaboration with Dr. Salas. I spent a total of 75 minutes coordinating, documenting, and providing care for this patient excluding time spent in the performance of separately billed services. This included personally reviewing all current laboratories and imaging studies, medication reconciliation, outpatient chart review, and discussion with specialists. History of Present Illness Chief Complaint: rectal bleeding Primary Care Provider: Klaus Turner MD 89-year-old male with PMH renal cell carcinoma s/p nephrectomy, ESRD on HD MWF, ascending aortic aneurysm, MGUS, ORLIN on BiPAP, and other problems listed below who presents to the ED for evaluation of rectal bleeding. Patient reports that symptoms began about 3 days ago. He reports 3 episodes of bright red bleeding per rectum with last episode being this morning. Stools have been soft. Patient denies abdominal pain, nausea, vomiting. No fevers or chills. Denies chest pain and shortness of breath. No lightheadedness, dizziness, diaphoresis, syncopal events. Denies urinary symptoms. Patient had usual dialysis treatment yesterday. In the ED, patient is hemodynamically stable. Labs show Hgb 13.0. Patient had a brief episode of hypoxia at 88% on room air, patient was subsequently placed on 2L via NC. CXR clear, flu, COVID, RSV testing negative. During my exam, I placed patient on room air and he maintain his saturation in the mid 90s. Allergies Allergy/AdvReac Type Severity Reaction Status Date / Time latex Allergy Severe REDNESS ON Verified 12/17/23 10:31 SKIN prednisone Allergy Severe HYPOTENSION, Verified 12/17/23 10:31 ABDOMINAL PAIN RIKI Inhibitors AdvReac Intermediate COUGH Verified 12/17/23 10:31 Iodinated Contrast Media AdvReac Unknown pt only Verified 12/17/23 10:31 has 1 kidney so is not supposed to have contrast Bandaid Allergy Intermediate SKIN Uncoded 12/17/23 10:31 IRRITATION--PLASTIC BANDAIDS Home Medications Medication Instructions Recorded Confirmed Type aspirin 81 mg tablet,delayed 81 mg PO DAILY 07/25/23 04/30/24 History release finasteride 5 mg tablet 5 mg PO DAILY #90 tabs 02/06/24 04/30/24 Rx lanthanum 500 mg chewable tablet 500 mg PO TIDM 04/30/24 04/30/24 History (Fosrenol) vitamin B complex and vitamin C 1 cap PO DAILY 04/30/24 04/30/24 History no.20-folic acid 1 mg capsule (Triphrocaps) Past Med/Surg History Problem List (Updated 04/30/24 @ 15:29 by VALENTINA Dooley) Hypoxia Rectal bleeding ORLIN on CPAP (Chronic) Malignant neoplasm of kidney (Chronic) 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/p nephrectomy (Chronic) Benign neoplasm of colon (Chronic) Gout (Chronic) Thoracic aortic aneurysm (Chronic) History of cataract surgery (Chronic) S/P appendectomy (Chronic) H/O colonoscopy with polypectomy (Chronic) History of adenomatous polyp of colon Hypertension Renal cell carcinoma (Acute) Impacted cerumen of left ear CKD (chronic kidney disease), stage V (Chronic) Sensorineural hearing loss (SNHL) of right ear with restricted hearing of left ear Sensorineural hearing loss of both ears Medical History (Updated 04/30/24 @ 15:29 by VALENTINA Dooley) ESRD (end stage renal disease) on dialysis History of COVID-2021--mild symptoms, no symptoms now BPH (benign prostatic hyperplasia) Arthritis Gout Hemodialysis patient MONDAY/MONDAY/MONDAY at [facility] SINCE 11/2017 F/U DR RODRIGUEZ Sleep apnea CPAP HS Aortic aneurysm UNDER OBSERVATION-F/U DR SAENZ Transient ischemic attack (TIA) AGE 50 NO ISSUES SINCE Surgical History History of anesthesia reaction PER PT WAS TOLD-EPISODE POST OP AVF SURGERY-"PAUSE" IN HEART-ATTRIBUTED TO MEDICATIONS TAKEN COMBINED WITH ANESTHESIA GIVEN-NO ISSUES SINCE History of vascular access device AV FISTULA LEFT UPPER ARM-2 SURGERIES History of colonoscopy X MULTIPLE--last 2018 @ [facility] History of cataract surgery R/L History of appendectomy Cancer RIGHT NEPHRECTOMY Family History Brother Family hx of colon cancer Hypertension Father Family hx of colon cancer Sister Cancer Other No family history of adverse response to anesthesia No family history of bleeding disorder Social History Smoking Status: Never smoker Second Hand Exposure: Yes (FATHER SMOKED); Do You Dip or Chew Tobacco: No; Hx Alcohol Use: No Hx Substance Use: No Preferred Language: Sao [place]omean Communication Ability: Effective Flat Screen Worker Required: No Beliefs That Will Affect Care: None Current Living Situation: Spouse Feels Safe at Home: Yes Assistive Devices: CPAP, Denture - Upper, Denture - Lower, Glasses and Hearing Aid - Bilateral Review of Systems Review of Systems: ROS per HPI, all other systems reviewed and negative Physical Exam Constitutional: WD/WN, vitals as above no acute distress Eyes: PERRL, conjunctivae normal, anicteric sclerae ENMT: external ear and nose normal, oropharynx normal Respiratory: normal respiratory effort, lungs clear to auscultation Cardiovascular: Rate/Rhythm: regular rate and regular rhythm Vessels: normal peripheral pulses Extremities: no edema Gastrointestinal (Abdomen): normal bowel sounds, soft, nontender, no hepatosplenomegaly Skin: no rashes, warm and dry Neurologic: PERRL, EOMI, accommodation nl, no face palsy, no dysarthria Psychiatric: A+Ox3, euthymic affect Results & Data Results & Data Vital Signs (Past 12 Hours) Vital Signs Temp Pulse Resp BP Pulse Ox O2 Del Method O2 Flow Rate 04/30/24 14:00 79 118/77 94 04/30/24 13:04 88 L Nasal Cannula 0 04/30/24 13:03 82 13 124/68 92 Nasal Cannula 2 04/30/24 12:49 86 04/30/24 12:38 91 H 22 117/82 04/30/24 11:52 36.7 C 93 H 18 133/66 93 Room Air Laboratory Results Short CBC 04/30/24 Range/Units 12:06 WBC 9.25 (4.8-10.8) K/ul Hgb 13.0 L (14.0-18.0) g/dl Hct 39.3 L (42.0-52.0) % Plt Count 228 (130-400) K/uL BMP 04/30/24 12:06 Sodium 140 Potassium 4.2 Chloride 93 L Carbon Dioxide 36 H BUN 37 H Creatinine 6.56 H* Glucose 105 H Calcium 10.1 Liver Function 04/30/24 Range/Units 12:06 Total Bilirubin 0.8 (0.2-1.0) mg/dl AST 19 (13-39) U/L ALT 19 (7-52) U/L Alkaline Phosphatase 56 (34-104) U/L Albumin 4.1 (3.4-5.0) gm/dl Diagnostic Findings Chest X-Ray 04/30/24 13:08 XR chest 1V portable CLINICAL HISTORY: sob COMPARISON STUDY: 02/10/2016 FINDINGS: Stable mild cardiomegaly without pulmonary vascular congestion. No effusion or consolidation. IMPRESSION: No pneumonia seen. ACT 112: Negative or not required by law. Electronically signed by: Fernando Alan M.D. 04/30/2024 1:41 PM Supervising Physician Co-Signing Physician Notes Attending addendum: The patient was seen and examined in emergency room in presence of the He has been having bright red rectal bleed for the last few days Seems to be intermittent and denies any pain associated with the bowel movement Denies any other significant symptoms and no history of hematemesis and/or melena On examination Lying in bed without any acute distress Remains hemodynamically stable Chestclear HeartS1-S2, regular Abdomenbenign, normal bowel sound Extremitiestrace edema bilaterally CNSalert, awake and oriented x 3 and no focal sensory or no motor deficit appreciated his admission labs and imaging studies reviewed Has end-stage renal disease on hemodialysis Bright red rectal blood seems to be secondary to hemorrhoids/doubt any diverticular bleed or upper GI bleed at this time Hemoglobin remains stable Will monitor H&H and get a GI evaluation while in the hospital Nephrology will be consulted for continuation of dialysis Agree with assessment plan as outlined above by Klaudia MONTGOMERY and take the full responsibility of care in the hospital Dr Sanjuana Salas
--- NOTE | 2024-04-30 17:12 | Communication Note ---
Date of Service: April 30, 2024 Late consult for lower GI bleeding Chart reviewed. 3 episodes of red blood per rectum. No hemodynamic instability. Hemoglobin 13. Will follow-up in AM.
[2024-04-30 18:30] LABS: Hematocrit (blood only) 37.2 % (42.0-52.0); Hemoglobin 12.6 g/dl (14.0-18.0)
[2024-04-30] MEDS: *LANTHANUM*ORDER AWAITING ACTION SCH (19:10)
--- OUTSIDE RECORDS SUMMARY | 2024-04-30 19:25 | External Medical Summary | Summary of Care ---
Author Name Unknown Organization [facility] Address [address] [place] [address] Phone [phone] Care Team Providers Care Teacher Instrumental Name Role Phone Klaus Turner MD Primary Care Provider + Reason for Visit * Reason Onset Date Comments Appointment 04/19/2024 cardiology case management 04/19/2024 Encounter Details Date Type Department Care Team (Late st Contact Info) Description 04/19/2024 Telephone General Internal Medicine [facility] [place] [address] [place] [address] Klaus Turner MD [address] [place] [address] Appointment (cardiology); case management Allergies Active Allergy Reactions Criticality Noted Date Comments Guillaume Inhibitors Cough Low 04/11/2009 Adhesive Tape Itching Low 02/03/2012 Srvf-Mub-dguzohq Iodinated Contrast Media Renal complications High 01/10/2023 Pt has only one kidnay AND pt has ESRD Latex Rash High 01/10/2023 Prednisone Nausea/vomiting Low 09/21/2011 All listed side effects, stomach upset, mood change, weakness documented as of this encounter (statuses as of 04/19/2024) Medications Aspirin 81 MG Oral Tablet Delayed Release Take 1 Tablet by mouth in the morning. Active Lanthanum Carbonate 500 MG Oral Tablet Chewable (Fosrenol) Take 1 Tablet by mouth in the morning and 1 Tablet at noon and 1 Tablet in the evening. Take with meals. Active Merrill Caps 1 MG Oral Capsule TAKE 1 CAPSULE BY MOUTH EVERY DAY 3 Active CPAP every night at bedtime. Active Finasteride 5 MG Oral Tablet (Proscar)Indicati ons:BPH without obstruction/lower urinary tract symptoms TAKE 1 TABLET BY MOUTH DAILY 90 Tablet 2 3 Active Additional Information Patient not taking.Reported on 02/27/2024 Fluticasone Propionate 50 MCG/ACT Nasal Suspension (Flonase) Administer 2 Sprays into each nostril at bedtime. 4 Active Zoster Vac Recomb Adjuvanted 50 MCG/0.5ML Intramuscular Suspension Reconstituted (Shingrix)Indicat ions:Need for vaccination for zoster Inject 0.5 mL into a large muscle now and repeat dose in 60 to 180 days 1 Each 12/26/2023 1:36 PM EDT 4 Active Acetaminophen 500 MG Oral Tablet (Tylenol) Take 2 Tablets by mouth every 8 hours as needed. 4 Active Zoster Vac Recomb Adjuvanted 50 MCG/0.5ML Intramuscular Suspension Reconstituted (Shingrix)Indicat ions:Need for vaccination for zoster Inject 0.5 mL into a large muscle now and repeat dose in 60 to 180 days 1 Each 1 5 Active documented as of this encounter (statuses as of 04/19/2024) Active Problems Problem Noted Date Diagnosed Date ESRD on dialysis 08/16/2023 S/P arteriovenous (AV) fistula creation 08/03/19 BISMARK (renal osteodystrophy) 07/26/2023 AVF (arteriovenous fistula) 07/06/2023 Innominate vein stenosis, left 07/06/2023 Dialysis AV fistula malfunction 07/06/2023 History of TIA (transient ischemic attack) 04/06 ESRD (end stage renal disease) 02/10/2023 End stage renal disease on dialysis 05/31/2022 Ascending aorta enlargement 05/11/2021 Hx of nonmelanoma skin cancer 06/21/2018 Overview (02/25/2021): 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, SCC R preauricular 02/2019, 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,BCC R superior helix 2010 Dialysis patient 04/17/2018 BPH with obstruction/lower urinary tract symptom s 12/12/2017 History of renal cell cancer 03/10/2017 Sinus node dysfunction 03/10/2017 Benign hypertension with CKD (chronic kidney disease) stage V 11/23/2016 HTN, goal below 150/90 11/04/2016 Gout of right foot 11/19/2014 ORLIN (obstructive sleep apnea) 04/17/2013 Overview (02/23/2023): AHI 72 - 2014 [facility] Thoracic aortic aneurysm 03/23/2012 MGUS (monoclonal gammopathy of unknown significa nce) 08/31/2009 S/P NEPHRECTOMY- Right 04/11/2009 History of malignant neoplasm of kidney 04/14/19 04 Overview (06/17/2005): 7 cm tumor R mid kidney R radical nephrectomy 05/30 MRI abd f/u: ~1.5 cm diameter complex cystic lesion omar-lateral aspect upper pole L kidney F/U Dr. Medrano 06/30 documented as of this encounter (statuses as of 04/19/2024) Resolved Problems Problem Noted Date Diagnosed Date Resolved Date HTN, goal below 140/80 07/26/202312/25 Ascending aorta enlargement 05/11/2021 05/11/2021 Dialysis patient 04/17/2018 04/17/2018 Chronic kidney disease (CKD), stage V 07/08/2016 04/17/2018 Severe obstructive sleep machine learning intern ea-hypopnea syndrome 12/22/2014 11/23/2016 Complex sleep apnea syndrome 12/22/2014 11/23/2016 Overview (12/22/2014): Titration study 06/12/2013: 225 Polina, 2 OA's, 4 MA, 177 H, 3 RERA. Placed on ASV Bipap (SALESPERSON CORSETS) HTN, goal below 140/90 04/01/201411/04 CKD (chronic kidney disease) stage 4, GFR 15-29 ml/min 06/12/2013 03/08/2016 BMI 35-39 ISOLATED (SEE ACTUAL BMI) 06/22/2009 03/26/2019 Overview (06/22/2009): Per Obesity Taxonomy Benign neoplasm of colon 03/23/2009 Overview (03/24/2009): adenomatous/repeat colonoscopy in 2 yrs HTN, goal below 130/80 02/17/200904/01 Overview (02/17/2009): Modified per HTN protocol #16. Gout of right foot 01/08/2009 7 Overview (01/08/2009): ICD-9 Code Update Kidney disease, chronic, sta ge III (GFR 30-59 ml/min) 07/11/2008 06/12/2013 CYST OF KIDNEY, ACQUIRED- left 07/11/2008 12/13/2022 Gouty arthropathy 09/26/2005 01/08/2009 Overview (06/30/2015): ICD-9 Code Update ICD-10 update of inactive term BPH without obstruction/lowe r urinary tract symptoms 09/05/2005 12/12/2017 Special screening for malign ant neoplasms, colon 11/30/2004 11/23/2016 Overview (04/12/2006): Impression: - Stricture in the transverse colon. 11/29 - One 3 mm polyp in the sigmoid colon. Resected and retrieved. - Diverticulosis. - Otherwise normal to the ileocecal valve. The caput cecum could not be entered. Recommendation: - Await pathology results.- tubular adenoma - In view of difficulty reaching the end of the cecum with the colonoscope, follow up in one year with CT colonography IMPRESSION: Virtual colonography 1. Study is nondiagnostic for virtual colonoscopy as detailed above. 2. Followup with optical colonoscopy should be performed. Otherwise a repeat virtual colonoscopy should be performed in 1-2 years. 3. Several low-density lesions in the left kidney are indeterminate. Patient has had a right nephrectomy of uncertain cause. Followup should be obtained with either contrast enhanced CT scan of the kidneys, ultrasound and/or MRI as further detailed above.4. Diffuse fatty metamorphosis of ADVANCE DIRECTIVE INFORMATION 10/14/2004 05/11/2021 Overview (10/14/2004): No, Advance Directive brochure given to patient. SKIN SENSATION DISTURB 10/14/200411/23 Screening for prostate cancer 10/17/2003 06/04/2008 Overview (06/04/2008): Resolved per Screening Diagnosis Protocol #6 Chronic kidney disease (CKD), stage V 10/17/2003 05/06/2016 Overview (06/17/2005): CREATININE(mg/dL) Jean Dt/Tm Resulted Value Status 06/02/05 10:36A 06/02/05 1.5* FINAL 10/01/04 9:48A 10/01/04 1.3* FINAL 04/23/04 8:35A 04/23/04 1.4* FINAL BENIGN NEOPLASM LG BOWEL(aka POLYPS) 09/08/2003 11/23/2016 Overview (09/08/2003): hepatic flexure stricture OBESITY, UNSPECIFIED 07/02/2001 010 Overview (06/22/2009): Per Obesity Taxonomy UNSPECIFIED TRANSIENT CEREBRAL ISCHEMIA 01/25/1986 03/26/2019 Overview (05/22/2002): amarousis fugax bilat arteriogram negative HYPERTENSION NOS 02/17/2009 Overview (02/17/2009): Modified per HTN protocol #16. documented as of this encounter (statuses as of 04/19/2024) Immunizations Name Administration Dates Next Due COVID-19 mRNA, LNP-s, No Pre serve, 2-Dose Series (Moderna) 05/29/2020,05/01/2020 DTaP Dipth/Tet/Acell Pertussis (Infanrix), Peds 12/13/2011 H1N1 2009 Influenza, IM 03/16/2009 PPD 03/28/2022, 2,2020,05/25,12/27/2017,12/11/2017 Pneumococcal Conjugate Vacc, 13 Valent (Prevnar) 08/15/2014 Pneumococcal Polysaccharide PPV23 (Pneumovax) 09/08/2016,07/09/2007,03/07/1999 Pneumococcal Vaccine, Unspec ified Formulation 09/08/2016 Season Influenza, Quad, PF, Adjuvanted, 65+ Yrs, IM (FLUAD) 12/09/2020 Seasonal Influenza Vac., MDV , IM, 0.5 mL (Fluzone) 12/12/2014,12/18/2013,12/08/2012,11/25,12/16/2010,12/24/2009,01/27/20 09,01/17/2008,01/08/2007,01/19/2005,1 ,03/07/2001 Seasonal Influenza Virus Vac cine, Unspecified Formulation 12/13/2022,01/23/2022,12/09/2020,06/2019,12/25/2018,11/28/2017,12/13/19 17,12/30/2015,12/18/2013,12/08/2012,0 12/08/2011,12/16/2010,12/24/2009,01/26,01/17/2008,01/08/2007, 6,01/19/2005,12/26/2001,03/07/2001 Seasonal Influenza, High Dos e, Trivalent, PF, IM (Fluzone HD) 12/07/2023,01/23/2022,12/29/2019,100 03/2018 Seasonal Influenza, PF, 6 M & above, IM , (FluLaval or Fluzone) 11/28/2017 Seasonal Influenza, Quadriva lent Hd (Fluzone Hd) 12/13/2022,01/03/2022,01/04/2021 Seasonal Influenza, Quadriva lent, No Preserve, IM 12/12/2016,12/30/2015 12/29/2016 TD - Tetanus/Diptheria (ADULT) 10/14/2004 TDAP (age 10 and older)(Boostrix) 01/03/2023, Varicella Zoster Vaccine (Adult) 10/15/2009 Zoster Vaccine Recombinant (Shingrix) 04/04/2024 ,12/26/2023 documented as of this encounter Social History Tobacco Use Types Packs/Day Years Used Date Smoking Tobacco: Never Smokeless Tobacco: Never Alcohol Use Standard Drinks/Week Comments No 0 (1 standard drink = 0.6 oz pur e alcohol) PHQ-2 Answer Date Recorded PHQ Adult Total Score 0 08/07/2023 Hunger Vital Sign Answer Date Recorded Within the past 12 months, y ou worried that your food would run out before you got the money to buy more. Never true 08/07/19 24 Within the past 12 months, t he food you bought just didn't last and you didn't have money to get more. Never true 08/07/2023 Childcare Answer Date Recorded Do you feel overwhelmed with taking care of a child, family member or friend? No 08/07/2023 Does your family need help f inding childcare? (Household - for ages 0-17 years) Not on file 08/07/2023 Clothing Answer Date Recorded Have you been unable to get clothing when it was really needed? No 08/07/2023 Is your family able to get c lothes or diapers when needed? (Household - for ages 0-17 years) Not on file 08/07/2023 Personal Safety Answer Date Recorded Do you feel unsafe or have concerns for your saf ety? No 08/07/2023 Do you have concerns for you r family's safety? (Household - for ages 0-17 years) Not on file 08/07/2023 Utilities Answer Date Recorded Do you have trouble paying y our heating, water, or electric bill? No 08/07/2023 Is your family able to pay t he heat, water, or electric bill? (Household - for ages 0-17 years) Not on file 08/07/2023 Does your family have access to good internet? (Household - for ages 0-17 years) Not on file 08/07/2023 Employment Status Answer Date Recorded Are you unemployed or without regular income? No 08/07/2023 Does the household have a re gular source of income? (Household - for ages 0-17 years) Not on file 08/07/2023 Social Connections Answer Date Recorded How often do you feel lonely or isolated from th ose around you? Never 08/07/2023 Financial Resource Strain Answer Date R ecorded Do you have any trouble payi ng for your medications, or do you think you might in the future? No 08/07/2023 Does your family have troubl e paying for medicine? (Household - for ages 0-17 years) Not on file 08/07/2023 Transportation Needs Answer Date Record ed READ ONLY Do you have troubl e getting a ride to medical visits or work? Never True 08/07/2023 Does your family have a hard time getting a ride to doctors visits? (Household - for ages 0-17 years) Not on file 08/07/2023 Has lack of transportation k ept you from medical appointments, meetings, work, or from getting things needed for daily living? Check all that apply. (Adult - for ages 18 years and over) Not on file 08/07/2023 Do you (or your family) have trouble finding or paying for a ride (transportation)? (Household - for ages 0-17 years) Not on file 08/07/2023 Housing Stability Answer Date Recorded Do you currently live in a s helter or have no steady place to sleep at night? No 08/07/2023 READ ONLY Do you think you a re at risk of becoming homeless? No 08/07/2023 Does your family worry about paying for your home or becoming homeless? (Household - for ages 0-17 years) Not on file 0 08/07/2023 Are you homeless or worried that you might be in the future? (Adult - for ages 18 years and over) Not on file Are you (or your family) jacque eless or worried that you might be in the future? (Household - for ages 0-17 years) Not on file Food Insecurity Answer Date Recorded Do you need food for this week? No 08/07/2023 Are you able to get enough f ood for your family? (Household - for ages 0-17 years) Not on file 08/07/2023 Does your family need food t his week? (Household - for ages 0-17 years) Not on file 08/07/2023 Do you always have enough fo od for your family? 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 Answer Date of Assessment Author No 07/25/2023 11:18 PM EDT Rachel Gordon RN * Are you blind or do you have serious difficulty seeing, even when wearing glasses? Answer Date of Assessment Author No 07/25/2023 11:18 PM EDT Rachel Gordon RN * Do you have serious difficulty walking or climbing stairs? (5 years old or older) Answer Date of Assessment Author No 07/25/2023 11:18 PM EDT Rachel Gordon RN * Do you have difficulty dressing or bathing? (5 years old or older) Answer Date of Assessment Author No 07/25/2023 11:18 PM EDRachel Grimm RN * Because of a physical, mental, or emotional condition, do you have difficulty doing errands alone such as visiting a doctors office or shopping? (15 years old or older) Answer Date of Assessment Author No 07/25/2023 11:18 PM Rachel Goode RN documented as of this encounter Mental Status * Because of a physical, mental, or emotional condition, do you have serious difficulty concentrating, remembering, or making decisions? (5 years old or older) Answer Entry Date Author No 07/25/2023 11:18 PM Rachel Goode RN documented in this encounter Miscellaneous Notes * Telephone Encounter - Roberta PenningtonLETTY - 04/19/2024 2:44 PM EST I don't see anything from Ayesha/Domonique that states that this patient needs to see Dr. Christine at this time. I am concerned that he is booking so far out and their appt could be canceled again d/t coverage (they have had 2 Dr. Christine appts canceled d/t provider coverage) I think it would be appropriate for pt to see Ayesha again d/t latest echo showing mild aortic valve stenosis, with Ayesha being a valve clinic provider. Ayesha, please advise if this pt needs to see Dr. Christine or if f/u with you would be appropriate. * Telephone Encounter - Magdalena Hager RN - 04/19/2024 2:35 PM EST Per test result note from Ayesha MONTGOMERY, patient to keep routine follow up with Cardiology, no follow up appointments scheduled. Spoke with today, she states that they were previously told that he should see Dr Christine forhis next visit. Scheduling: can you please assist in getting follow up scheduled with Dr Christine? documented in this encounter Plan of Treatment Upcoming Encounters Date Type Department Care Team (Late st Contact Info) Description 09/24/2024 1:00 PM EDT Office Visit General Internal Medicine [facility] [address] [facility] [place] [id number] Klaus Turner MD [address] [facility] [place] [address] 02/27/2025 10:00 AM EST Office Visit Sleep Disorders Ctr [facility] [place] [address] [place] [phone] Anabella Thomas CRNP [address] [address] 05/06/2025 10:15 AM EST [facility] [place] [address] [facility] [place] [address] Klaus Barros MD [address] [facility] [place] [address] Health Maintenance Due Date Last Done Comments Adult Wellness Visit 01/27/2018 01/27/2017 COVID-19 Vaccine ( season) 2023 05/29/2020, 05/01/2020 Depression Screening 08/06/2024 08/07/2023 DTap/Tdap Vaccines (4 - Td or Tdap) 01/03/2033 01/03/2023, 12/13/2011, 12/13/2011, Additional history exists Pneumococcal Vaccine: 50+ Years Completed 09/08/2016, 08/15/2014, 07/09/2007, Additional history exists Influenza Vaccine (FLU shot) Completed 02/2024, 12/13/2022, 12/13/2022, Additional history exists Zoster Vaccines Completed 04/04/2024, 03/2023, 10/15/2009 HPV (Gardasil) Vaccine Aged Out No lo nger eligible based on patient's age to complete this topic Hepatitis B Vaccine Aged Out No longe r eligible based on patient's age to complete this topic MENINGOCOCCAL (MENACTRA/MENVEO) Aged Out No longer eligible based on patient's age to complete this topic documented as of this encounter Medical Devices Not on filedocumented as of this encounter Advance Directives * Full Code (Latest Code Status on File) Date Activated Date Inactivated Comments 07/25/2023 11:25 PM 07/26/2023 8:05 PM Question Answer Comments Discussion of Advance Direct damián occurred with: Not Discussed due to patient's condition * Full Code Date Activated Date Inactivated Comments 07/21/2023 3:38 AM 07/21/2023 4:35 PM Question Answer Comments Discussion of Advance Direct damián occurred with: Not Discussed due to patient's condition Healthcare Agents on File Name Relationship Healthcare Agent Relationshi p Communication Dayanna Campbell Spouse Health Care Agen t (per Health Care Power of Prn Physical Therapist document) Care Teams Teacher Instrumental Relationship Specialty Start Date End Date Klaus Turner MD [address] [place] [address] PCP - General Internal Medicine 06/22/21 documented as of this encounter
--- OUTSIDE RECORDS SUMMARY | 2024-04-30 19:25 | External Medical Summary | Summary of Care ---
Author Name Unknown Organization [facility] Address [address] [place] [address] Phone [phone] Care Team Providers Care Cabin Supervisor Name Role Phone Klaus Turner MD Primary Care Provider + Reason for Visit * Reason Comments Medication Administration Encounter Details Date Type Department Care Team (Late st Contact Info) Description 04/04/2024 9:00 AM EST Nurse Only Ancillary [place] Deloris Melendez [address] [place] [address] Nurse, Int Med 200 [facility] [place] [address] Medication Administration Allergies Active Allergy Reactions Criticality Noted Date Comments Guillaume Inhibitors Cough Low 04/11/2009 Adhesive Tape Itching Low 02/03/2012 Eisl-Yyl-ugfsyga Iodinated Contrast Media Renal complications High 01/10/2023 Pt has only one kidnay AND pt has ESRD Latex Rash High 01/10/2023 Prednisone Nausea/vomiting Low 09/21/2011 All listed side effects, stomach upset, mood change, weakness documented as of this encounter (statuses as of 04/04/2024) Medications Aspirin 81 MG Oral Tablet Delayed Release Take 1 Tablet by mouth in the morning. Active Lanthanum Carbonate 500 MG Oral Tablet Chewable (Fosrenol) Take 1 Tablet by mouth in the morning and 1 Tablet at noon and 1 Tablet in the evening. Take with meals. Active [place] Caps 1 MG Oral Capsule TAKE 1 CAPSULE BY MOUTH EVERY DAY Active CPAP every night at bedtime. Active [...] as of this encounter (statuses as of 04/04/2024) Active Problems Problem Noted Date Diagnosed Date ESRD on dialysis 08/16/2023 S/P arteriovenous (AV) fistula creation 08/03/19 24 BISMARK (renal osteodystrophy) 07/26/2023 AVF (arteriovenous fistula) [...] as of this encounter (statuses as of 04/04/2024) Resolved Problems Problem Noted Date Diagnosed Date Resolved Date HTN, goal below 140/80 07/26/202312/25 Ascending aorta enlargement 05/11/2021 05/11/2021 Dialysis patient 04/17/2018 04/17/2018 Chronic kidney disease (CKD), stage V 07/08/2016 04/17/2018 Severe obstructive sleep accounting machine operator ea-hypopnea syndrome 12/22/2014 11/23/2016 Complex sleep apnea syndrome 12/22/2014 11/23/2016 Overview (12/22/2014): Titration study 06/12/2013: 225 Polina, 2 OA's, 4 MA, 177 H, 3 RERA. Placed on ASV Bipap (OPERATIONS REPRESENTATIVE) HTN, goal below 140/90 04/01/201411/04 CKD (chronic [...] as of this encounter (statuses as of 04/04/2024) Immunizations Name Administration Dates Next Due COVID-19 mRNA, LNP-s, No Pre serve, 2-Dose Series (Moderna) 05/29/2020,05/01/2020 DTaP Dipth/Tet/Acell Pertussis (Infanrix), Peds 12/13/2011 H1N1 2009 Influenza, IM 03/16/2009 PPD 03/28/2022, 2,2020,05/25,12/27/2017,12/11/2017 Pneumococcal Conjugate Vacc, 13 Valent (Prevnar) 08/15/2014 Pneumococcal Polysaccharide PPV23 (Pneumovax) 09/08/2016,07/09/2007 Pneumococcal Vaccine, Unspec ified Formulation 09/08/2016 Season Influenza, Quad, PF, Adjuvanted, 65+ Yrs, IM (FLUAD) 12/09/2020 Seasonal Influenza Vac., MDV , IM, 0.5 mL (Fluzone) 12/12/2014,12/18/2013,12/08/2012,11/25,12/16/2010,12/24/2009,01/27/20 09,01/17/2008,01/08/2007 Seasonal Influenza Virus Vac cine, Unspecified Formulation 12/13/2022,01/23/2022,12/09/2020,06/2019,12/25/2018,11/28/2017,12/13/19 17,12/30/2015,12/18/2013,12/08/2012,0 12/08/2011,12/16/2010,12/24/2009,01/26,01/17/2008,01/08/2007, 6,01/19/2005,12/26/2001,03/07/2001 Seasonal Influenza, High Dos e, Trivalent, PF, IM (Fluzone HD) 12/07/2023,01/23/2022,12/29/2019,03/2018 Seasonal Influenza, PF, 6 M & above, IM , (FluLaval or Fluzone) 11/28/2017 Seasonal Influenza, Quadriva lent Hd (Fluzone Hd) 12/13/2022,01/03/2022,01/04/2021 Seasonal Influenza, Quadriva lent, No Preserve, IM 12/12/2016,12/30/2015 12/29/2016 TDAP (age 10 and older)(Boostrix) 01/03/2023, Varicella [...] No 08/07/2023 Does the household have a [facility] source of income? 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 Answer Date of Assessment Author No 07/25/2023 11:18 PM Rachel Goode RN * Are you blind or do you have serious difficulty seeing, even when wearing glasses? Answer Date of Assessment Author No 07/25/2023 11:18 PM Rachel Goode RN * Do you have serious difficulty walking or climbing stairs? (5 years old or older) Answer Date of Assessment Author No 07/25/2023 11:18 PM Rachel Goode RN * Do you have difficulty dressing or bathing? (5 years old or older) Answer Date of Assessment Author No 07/25/2023 11:18 PM Rachel Goode RN * Because of a physical, mental, [...] Rachel Goode RN documented in this encounter Progress Notes * Micaela Gomez CMA - 04/04/2024 9:01 AM EST Pre-Administration Time Out Procedure Performed: Yes Patient Identified (Ask Name/Date of ): Yes Does the patient have a fever greater than 101 degrees today? No Patient allergic to latex? No Has the patient ever fainted after receiving an injection? No VFC Stock: No Immunization(s) verified: Yes, Immunization Name: Shingrix, VIS Sheet(s) given: Yes Verified Side and Site: Yes Verified Shot(s) with Parent(s)/Patient: Yes documented in this encounter Plan of Treatment Upcoming Encounters Date Type Department Care Team (Late st Contact Info) Description 04/15/2024 3:45 PM EST Office Visit Dermatology [facility] 200 [facility] [place] [address] Klaus Barros MD 200 [facility] [place] [address] 09/24/2024 1:00 PM EDT Office Visit General Internal Medicine [facility] 200 [facility] [place] [address] Klaus Turner MD 200 [facility] [place], [place] [address] 02/27/2025 10:00 AM EST Office Visit Sleep Disorders Ctr [facility] [address] [place] [phone] Anabella Thomas CRNP [address] [place] [address] Health Maintenance Due Date Last Done Comments [...] Not on filedocumented as of this encounter Visit Diagnoses Diagnosis Need for vaccination for zoster- Primary Need for prophylactic vaccination and inoculation against other viral diseases documented in this encounter Advance Directives * Full Code [...] Agents on File Name Relationship Healthcare Agent [facility] p Communication Dayanna Hightower Spouse Health Care Agen t (per Health Care Power of Professional Fee Coder document) Care Teams Cabin Supervisor Relationship Specialty Start Date End Date Klaus Turner MD 200 [place] [address] PCP - General Internal Medicine 06/22/21 documented as of this encounter
--- OUTSIDE RECORDS SUMMARY | 2024-04-30 19:25 | External Medical Summary | Summary of Care ---
Author Name Unknown Organization [facility] Address [address] [place] [address] Phone [phone] Care Team Providers Care Outpatient Program Coordinator Name Role Phone Klaus Alston MD Primary Care Provider + Reason for Visit * Reason Comments Follow Up Patient here for a s kin check, hx of NMSC and AK. He has a painful growth on his right buttock, been there a few months. Has a lot of brown spots on his face. Encounter Details Date Type Department Care Team (Late st Contact Info) Description 04/15/2024 3:45 PM EST [facility] 200 [facility] [place] [address] Klaus Barros MD [address] [facility] [address] [place] [address] Actinic skin damage*; Seborrheic keratoses; Hx of basal cell carcinoma; Hx of squamous cell carcinoma; Scar; Hypertrophic scar; Actinic keratosis Allergies Active Allergy Reactions Criticality Noted Date Comments Guillaume Inhibitors Cough Low 04/11/2009 Adhesive Tape Itching Low 02/03/2012 Dbyk-Nap-gzvhsbu Iodinated Contrast Media Renal complications High 01/10/2023 Pt has only one kidnay AND pt has ESRD Latex Rash High 01/10/2023 Prednisone Nausea/vomiting Low 09/21/2011 All listed side effects, stomach upset, mood change, weakness documented as of this encounter (statuses as of 04/15/2024) Medications Aspirin 81 MG Oral Tablet Delayed Release Take 1 Tablet by mouth in the morning. Active Lanthanum Carbonate 500 MG Oral Tablet Chewable (Fosrenol) Take 1 Tablet by mouth in the morning and 1 Tablet at noon and 1 Tablet in the evening. Take with meals. Active [place] Caps 1 MG Oral Capsule TAKE 1 [...] as of this encounter (statuses as of 04/15/2024) Active Problems Problem Noted Date Diagnosed Date [...] apnea) 04/17/2013 Overview (02/23/2023): AHI 72 - 2013 [facility] Thoracic aortic aneurysm 03/23/2012 [...] as of this encounter (statuses as of 04/15/2024) Resolved Problems Problem Noted Date Diagnosed Date Resolved Date HTN, goal below 140/80 07/26/202312/25 Ascending aorta enlargement 05/11/2021 05/11/2021 Dialysis patient 04/17/2018 04/17/2018 Chronic kidney disease (CKD), stage V 07/08/2016 04/17/2018 Severe obstructive sleep maintenance worker municipal ea-hypopnea syndrome 12/22/2014 11/23/2016 Complex sleep apnea syndrome 12/22/2014 11/23/2016 Overview (12/22/2014): Titration study 06/12/2013: 225 Polina, 2 OA's, 4 MA, 177 H, 3 RERA. 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 He has a painful growth on his right buttock, been there a few months. Has a lot of brown spots on his face. HPI: Santos Hightower is a 89 year old male seen for a full skin check for history of nonmelanoma skin cancer. 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, SCC R preauricular 02/2019, 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, BCC R superior helix 2010 REVIEW OF SYSTEMS: CONSTITUTIONAL: negative SKIN: No new or changing moles or rashes other than those noted in HPI HEME/LYMPH: No new or enlarging lumps or bumps OBJECTIVE: GEN: Elderly but alert, no distress, appears oriented, pleasant, and cooperative SKIN: Detailed exam of hair, face, trunk, arms, and legs Right upper back - hypertrophic scar Left superior cranfills gap - dry gritty erythematous papule Right buttocks - faint erythema Well-healed scar(s) at primary site(s) without evidence of recurrence Scattered on face, chest, back - diffuse mottled hypopigmented and hyperpigmented macules without significant irregularity. Associated telangiectasias Face and on the trunk and extremities are several scattered figueredo/brown hyperkeratotic stuck on appearing waxy papules. ASSESSMENT/PLAN: Hypertrophic scar - discussed ILK, but due to hx of prednisone allergy will hold on this as not too bothersome Actinic keratosis -The diagnosis and malignant potential of the lesion was explained. Treatment options were reviewedincluding cryotherapy, topical medications, and observation. All questions were addressed. Procedure - Cryotherapy (Premalignant Destruction) -The patient would like to proceed with cryosurgery;Cryosurgery explained to the patient, consent obtained, patient, site and procedure verified, and then cryotherapy was performed with Liquid Nitrogen via cryo spray unit to 1 lesions. Location noted in physical exam. Post op course explained. -Discussed that if any of these lesions fail to completely resolve after treatment patient should call me for re-evaluation Pressure wound - no ulceration - discussed offloading pressure Scar(s), History of Nonmelanoma Skin Cancer - Well healed scar(s) with no evidence of recurrence - Recommended periodic skin exams and instructed to call clinic if patient notices any changing lesions, including rapid enlargement, changes in color or shape or symptoms, bleeding, or other concerns. The common features and behavior of non-melanoma skin cancers (e.g. basal cell carcinoma/squamouscell carcinoma) as well as the features of melanoma were also reviewed. -Daily sun protection recommended including physical (i.e. clothing) and chemical blockers. Broad spectrum sunscreens with at least SPF 30 for UVA and UVA protection were recommended. Chronic Actinic Damage - Discussed that skin changes are due to chronic sun exposure. - Daily sun protection recommended as discussed above Seborrheic keratoses - The benign nature of these lesions was discussed with the patient and that no treatment is indicated today. Klaus Barros MD REF: SELF [address] ADDRESS AVAILABLE PCP: KLAUS ALSTON [address] [place] [address] [phone] documented in this encounter Nursing Notes * Ivy Sherman LPN - 04/15/2024 3:47 PM EST Chief Complaint Patient presents with Follow Up Patient here for a skin check, hx of NMSC and AK. He has a painful growth on his right buttock, been there a few months. Has a lot of brown spots on his face. documented in this encounter Plan of Treatment Upcoming Encounters Date Type Department Care Team (Late st Contact Info) Description 09/24/2024 1:00 PM EDT Office Visit General Internal Medicine [facility] [address] [place] [address] Klaus Alston MD 200 [facility] [place] [address] 02/27/2025 10:00 AM EST Office Visit Sleep Disorders Ctr [facility] [address] [place] [phone] Anabella Thomas CRNP [address] [place] [address] 05/06/2025 10:15 AM EST Office Visit Dermatology [facility] [address] [place] [address] Klaus Barros MD 200 [facility] [place] [address] Health Maintenance Due Date Last Done Comments [...] as of this encounter Visit Diagnoses Diagnosis Actinic skin damage- Primary Other dermatitis due to solar radiation Seborrheic keratoses Hx of basal cell carcinoma Personal history of other malignant neoplasm of skin Hx of squamous cell carcinoma Personal history of malignant neoplasm of other site Scar Scar condition and fibrosis of skin Hypertrophic scar Keloid scar Actinic keratosis documented in this encounter Advance Directives * [...] Agents on File Name Relationship [facility] Dayanna Hightower Spouse Health Care Agen t (per Health Care Power of Senior Investment Analyst document) Care Teams Outpatient Program Coordinator Relationship Specialty Start Date End Date Klaus Alston MD 200 [place] [address] PCP - General Internal Medicine 06/22/21 documented as of this encounter
--- OUTSIDE RECORDS SUMMARY | 2024-04-30 19:25 | External Medical Summary | Summary of Care ---
Author Name Unknown Organization [facility] Address [address] [place] [address] Phone [phone] Care Team Providers Care Refrigerator Repairman Name Role Phone Klaus Turner MD Primary Care Provider + Reason for Visit * Reason Onset Date Comments Appointment 04/19/2024 cardiology case management 04/19/2024 Encounter Details Date Type Department Care Team (Late st Contact Info) Description 04/19/2024 Telephone General Internal Medicine [facility] [place] [address] [place] [address] Klaus Turner MD [address] [place] [address] Appointment (cardiology); case management Allergies Active Allergy Reactions Criticality Noted Date Comments Guillaume Inhibitors Cough Low 04/11/2009 Adhesive Tape Itching Low 02/03/2012 Tddi-Whc-qyyivgy Iodinated Contrast Media Renal complications High 01/10/2023 Pt has only one kidnay AND pt has ESRD Latex Rash High 01/10/2023 Prednisone Nausea/vomiting Low 09/21/2011 All listed side effects, stomach upset, mood change, weakness documented as of this encounter (statuses as of 04/22/2024) Medications Aspirin 81 MG Oral Tablet Delayed [...] as of this encounter (statuses as of 04/22/2024) Active Problems Problem Noted Date Diagnosed Date [...] as of this encounter (statuses as of 04/22/2024) Resolved Problems Problem Noted Date Diagnosed Date Resolved Date HTN, goal below 140/80 07/26/202312/25 Ascending aorta enlargement 05/11/2021 05/11/2021 Dialysis patient 04/17/2018 04/17/2018 Chronic kidney disease (CKD), stage V 07/08/2016 04/17/2018 Severe obstructive sleep spare fixer ea-hypopnea syndrome 12/22/2014 11/23/2016 Complex sleep apnea syndrome 12/22/2014 11/23/2016 Overview (12/22/2014): Titration study 06/12/2013: 225 Polina, 2 OA's, 4 MA, 177 H, 3 RERA. 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 Christine. Cat is correct in that they can schedule with him, but do run the risk of appointments being rescheduled. They can either schedule with TK or one of the Aps. I only saw this patient once so it can be with any AP. As for the valve disease, its mild so they likely won't need me on the valve clinic side for awhile. Thanks * Telephone Encounter - Roberta Pennington CMA - 04/19/2024 2:44 PM EST I don't [...] PM EDT Office Visit General Internal Medicine [facility] [place] [address] [place] [address] Klaus Turner MD 200 [facility] [place] [address] 02/27/2025 10:00 AM EST Office Visit [facility] Disorders Ctr [facility] [address] [place] [phone] Anabella Thomas CRNP [address] [place] [address] 05/06/2025 10:15 AM EST Office Visit Dermatology [facility] 200 [facility] [place] [address] Klaus Barros MD 200 [facility] [place] [address] Health Maintenance Due Date Last Done Comments Adult Wellness Visit 01/27/2018 01/27/2017 COVID-19 Vaccine ( season) 2023 05/29/2020, 05/01/2020 Depression Screening 08/06/2024 08/07/2023 DTap/Tdap Vaccines (4 - Td or Tdap) 01/03/2033 01/03/2023, 12/13/2011, 12/13/2011, Additional history exists Pneumococcal Vaccine: 50+ Years Completed 09/08/2016, 08/15/2014, 07/09/2007, Additional history exists Influenza Vaccine (FLU shot) Completed 02/2024, 12/13/2022, 12/13/2022, Additional history exists Zoster Vaccines Completed 04/04/2024, 1003/2023, 10/15/2009 HPV (Gardasil) Vaccine Aged Out No [...] Agents on File Name Relationship Healthcare Agent [facility] p Communication Dayanna Hightower Spouse Health Care Agen t (per Health Care Power of Magento Web Developer document) Care Teams Refrigerator Repairman Relationship Specialty Start Date End Date Klaus Turner MD [address] [place] [address] PCP - General Internal Medicine 06/22/21 documented as of this encounter
--- OUTSIDE RECORDS SUMMARY | 2024-04-30 19:25 | External Medical Summary | Summary of Care ---
Author Name Unknown Organization [facility] Address [address] [place] [address] Phone [phone] Care Team Providers Care Event Technician Name Role Phone Klaus Turner MD Primary Care Provider + Reason for Visit * Reason Onset Date Comments Appointment 04/19/2024 cardiology case management 04/19/2024 Encounter Details Date Type Department Care Team (Late st Contact Info) Description 04/19/2024 Telephone General Internal Medicine [facility] [place] [address] [place] [address] Klaus Turner MD [address] [place] [address] Appointment (cardiology); case management Allergies Active Allergy Reactions Criticality Noted Date Comments Guillaume Inhibitors Cough Low 04/11/2009 Adhesive Tape Itching Low 02/03/2012 Jcui-Mps-hpxamep Iodinated Contrast Media Renal complications High 01/10/2023 [...] stage V 07/08/2016 04/17/2018 Severe obstructive sleep fixer boarding room ea-hypopnea syndrome 12/22/2014 11/23/2016 Complex sleep apnea syndrome 12/22/2014 11/23/2016 Overview (12/22/2014): Titration study 06/12/2013: 225 Polina, 2 OA's, 4 MA, 177 H, 3 RERA. Placed on ASV Bipap (UTILITY DIVISION PROJECT MANAGER) HTN, goal below 140/90 04/01/201411/04 CKD (chronic [...] Miscellaneous Notes * Telephone Encounter - Roberta Pennington CMA - 04/22/2024 8:58 AM EST Scheduling - Please reach out and attempt to schedule follow-up with patient. Per Ayesha's note below, they don't need to see Dr. Christine but they may schedule with him if they prefer. Please explain that they run the risk of this appt being scheduled very far out or canceled d/t hospital rotation. If they are agreeable to seeing an AP, feel free to schedule with first available or whoever they prefer. They may also schedule soonest available with an AP and then later in the year with TK. Thanks! * Telephone Encounter - Ayesha Scherer CRNP - 04/22/2024 5:40 AM EST I have not seen this patient since December 2022, and my note does not state that; however, my guessis patient is wanting to see his primary early childhood assistant who is Dr. Christine. Cat is correct [...] PM EDT Office Visit General Internal Medicine [facility] [place] [address] Klaus Turner MD 200 [facility] [place] [address] 02/27/2025 10:00 AM EST Office Visit [facility] Disorders Ctr [facility] [address] [facility] [phone] Anabella Thomas CRNP [address] [facility] [place] [address] 05/06/2025 10:15 AM EST Office Visit Dermatology [facility] [address] [facility] [place] [address] Klaus Barros MD 200 [facility] [place] [address] Health Maintenance Due Date Last Done Comments Adult Wellness Visit 01/27/2018 01/27/2017 COVID-19 Vaccine (2023- season) 2023 05/29/2020, 05/01/2020 Depression Screening 08/06/2024 [...] on File Name Relationship [facility] Dayanna Hightower Spouse Health Care Agen t (per Health Care Power of Cattle Killer document) Care Teams Event Technician Relationship Specialty Start Date End Date Klaus Turner MD [address] [place] [address] PCP - General Internal Medicine 06/22/21 documented as of this encounter
--- OUTSIDE RECORDS SUMMARY | 2024-04-30 19:25 | External Medical Summary | Summary of Care ---
Author Name Unknown Organization [facility] Address [address] [place] [address] Phone [phone] Care Team Providers Care Dielectric Machine Operator Name Role Phone Klaus Turner MD Primary Care Provider + Reason for Visit * Reason Onset Date Comments Appointment 04/19/2024 cardiology case management 04/19/2024 Encounter Details Date Type Department Care Team (Late st Contact Info) Description 04/19/2024 Telephone General Internal Medicine [facility] [place] [address] [place] [address] Klaus Turner MD [address] [place] [address] Appointment (cardiology); case management Allergies Active Allergy Reactions Criticality Noted Date Comments Guillaume Inhibitors Cough Low 04/11/2009 Adhesive Tape Itching Low 02/03/2012 Zhbp-Etf-ozmxuwh Iodinated Contrast Media Renal complications High 01/10/2023 [...] stage V 07/08/2016 04/17/2018 Severe obstructive sleep performance analyst ea-hypopnea syndrome 12/22/2014 11/23/2016 Complex sleep apnea syndrome 12/22/2014 11/23/2016 Overview (12/22/2014): Titration study 06/12/2013: 225 Polina, 2 OA's, 4 MA, 177 H, 3 RERA. 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 Not on [...] PM EDT Office Visit General Internal Medicine [facility] [address] [facility] [place] [address] Klaus Turner MD [address] [place] [address] 02/27/2025 10:00 AM EST Office Visit Sleep Disorders Ctr [facility] [place] [address] [place] [phone] Anabella Thomas CRNP [address] [place] [address] 05/06/2025 10:15 AM EST [facility] [place] [address] [place] [address] Klaus Barros MD [address] [place] [address] Health Maintenance Due Date Last Done Comments [...] Agen t (per Health Care Power of Title Camera Operator document) Care Teams Dielectric Machine Operator Relationship Specialty Start Date End Date Klaus Turner MD 200 [place] [address] PCP - General Internal Medicine 06/22/21 documented as of this encounter
--- OUTSIDE RECORDS SUMMARY | 2024-04-30 19:25 | External Medical Summary | Summary of Care ---
Author Name Unknown Organization [facility] Address [address] [place] [address] Phone [phone] Care Team Providers Care Signal System Testing Maintainer Name Role Phone Klaus Turner MD Primary Care Provider + Reason for Visit * Reason Onset Date Comments Appointment 04/19/2024 cardiology case management 04/19/2024 Encounter Details Date Type Department Care Team (Late st Contact Info) Description 04/19/2024 Telephone General Internal Medicine [facility] [place] [address] [place] [address] Klaus Turner MD [address] [place] [address] Appointment (cardiology); case management Allergies Active Allergy Reactions Criticality Noted Date Comments Guillaume Inhibitors Cough Low 04/11/2009 Adhesive Tape Itching Low 02/03/2012 Sikc-Ewj-vqgqugx Iodinated Contrast Media Renal complications High 01/10/2023 [...] stage V 07/08/2016 04/17/2018 Severe obstructive sleep correspondence analyst ea-hypopnea syndrome 12/22/2014 11/23/2016 Complex sleep apnea syndrome 12/22/2014 11/23/2016 Overview (12/22/2014): Titration study 06/12/2013: 225 Polina, 2 OA's, 4 MA, 177 H, 3 RERA. 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 Christine. Cat is correct [...] Care Team (Late st Contact Info) Description 06/04/2024 10:30 AM EDT [facility] [address] [facility] [place] [address] Mellissa Miller PA-C [address] [place] [address] 09/24/2024 1:00 PM EDT Office Visit General Internal Medicine [facility]ita Melendez [place] [address] [facility] [place] [address] Klaus Turner MD [address] [facility] [place] [address] 02/27/2025 10:00 AM EST Office Visit Sleep Disorders Ctr Isaac Garcia, [place] [address] [facility] [place] [phone] Anabella Thomas CRNP [address] [place] [address] 05/06/2025 10:15 AM EST Office Visit Dermatology San[facility]ita Melendez [place] [address] [facility] [place] [address] Klaus Barros MD [address] [facility] [place] [address] Health Maintenance Due Date Last Done Comments [...] Relationship Healthcare Agent Relationshi p Communication Dayanna Hightower Spouse Health Care Agen t (per Health Care Power of Biomass Facilitator document) Care Teams Signal System Testing Maintainer Relationship Specialty Start Date End Date Klaus Turner MD 200 [place] [address] PCP - General Internal Medicine 06/22/21 documented as of this encounter
--- OUTSIDE RECORDS SUMMARY | 2024-04-30 19:25 | External Medical Summary | Summary of Care ---
Author Name Unknown Organization [facility] Address [address] [place] [address] Phone [phone] Care Team Providers Care Performance Improvement Director Name Role Phone Klaus Turner MD Primary Care Provider + Encounter Details Date Type Department Care Team (Late st Contact Info) Description 04/15/2024 Population Health External Data Unspecified Department Allergies Active Allergy Reactions Criticality Noted Date Comments Guillaume Inhibitors Cough Low 04/11/2009 Adhesive Tape Itching Low 02/03/2012 Jmbn-Iip-pubnwcm Iodinated Contrast Media Renal complications High 01/10/2023 [...] in the evening. Take with meals. Active [place] Caps 1 MG Oral Capsule TAKE 1 [...] stage V 07/08/2016 04/17/2018 Severe obstructive sleep superintendent warehouse ea-hypopnea syndrome 12/22/2014 11/23/2016 Complex sleep apnea syndrome 12/22/2014 11/23/2016 Overview (12/22/2014): Titration study 06/12/2013: 225 [address], 2 OA's, 4 MA, 177 H, 3 RERA. Placed on ASV Bipap (PLAIN CLOTHES POLICE OFFICER) HTN, goal below 140/90 04/01/201411/04 CKD (chronic [...] 08/07/2023 Does the household have a re lar source of income? 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 (15 years old or older) Answer Date of Assessment Author No 07/25/2023 11:18 PM EDT Rachel Gordon RN documented as of this encounter Mental Status * Because of a physical, mental, or emotional condition, do you have serious difficulty concentrating, remembering, or making decisions? (5 years old or older) Answer Entry Date Author No 07/25/2023 11:18 PM Rachel Goode RN documented in this encounter Plan of Treatment Upcoming Encounters Date Type Department Care Team (Late st Contact Info) Description 04/15/2024 3:45 PM EST Office Visit Dermatology [address] [place] [address] Klaus Barros MD 200 [place] [address] 09/24/2024 1:00 PM EDT Office Visit General Internal Medicine [facility] [address] [place] [address] Klaus Turner MD 200 [place] [address] 02/27/2025 10:00 AM EST Office Visit Sleep Disorders Ctr [facility] [address] [place] [phone] Anabella Thomas CRNP [address] [place] [address] Health Maintenance Due Date Last Done Comments [...] Agen t (per Health Care Power of Dealer Analyst document) Care Teams Performance Improvement Director Relationship Specialty Start Date End Date Klaus Turner MD 200 [place] [address] PCP - General Internal Medicine 06/22/21 documented as of this encounter
--- OUTSIDE RECORDS SUMMARY | 2024-04-30 19:26 | External Medical Summary | Summary of Care ---
Author Name Unknown Organization [facility] Address [address] [place] [address] Phone [phone] Care Team Providers Care Congressional District Aide Name Role Phone Klaus Turner MD Primary Care Provider + Encounter Details Date Type Department Care Team (Late st Contact Info) Description 02/27/2024 Telephone Pulmonary Medicine, [facility] [address] [place] [address] Anabella Thomas CRNP [address] [place] [address] Allergies Active Allergy Reactions Criticality Noted Date Comments Guillaume Inhibitors Cough Low 04/11/2009 Adhesive Tape Itching Low 02/03/2012 Hudh-Yoq-kdmcwbd Iodinated Contrast Media Renal complications High 01/10/2023 Pt has only one kidnay AND pt has ESRD Latex Rash High 01/10/2023 Prednisone Nausea/vomiting Low 09/21/2011 All listed side effects, stomach upset, mood change, weakness documented as of this encounter (statuses as of 02/27/2024) Medications Aspirin 81 MG Oral Tablet Delayed Release Take 1 Tablet by mouth in the morning. Active Lanthanum Carbonate 500 MG Oral Tablet Chewable (Fosrenol) Take 1 Tablet by mouth in the morning and 1 Tablet at noon and 1 Tablet in the evening. Take with meals. Active [place] Caps 1 MG Oral Capsule TAKE 1 [...] every 8 hours as needed. 4 Active documented as of this encounter (statuses as of 02/27/2024) Active Problems Problem Noted Date Diagnosed Date [...] as of this encounter (statuses as of 02/27/2024) Resolved Problems Problem Noted Date Diagnosed Date Resolved Date HTN, goal below 140/80 07/26/202312/25 Ascending aorta enlargement 05/11/2021 05/11/2021 Dialysis patient 04/17/2018 04/17/2018 Chronic kidney disease (CKD), stage V 07/08/2016 04/17/2018 Severe obstructive sleep woodworking machine feeder ea-hypopnea syndrome 12/22/2014 11/23/2016 Complex sleep apnea syndrome 12/22/2014 11/23/2016 Overview (12/22/2014): Titration study 06/12/2013: 225 [address], 2 OA's, 4 MA, 177 H, 3 RERA. Placed on ASV Bipap (COMPUTER FIELD TECHNICIAN) HTN, goal below 140/90 04/01/201411/04 CKD (chronic [...] as of this encounter (statuses as of 02/27/2024) Immunizations Name Administration Dates Next Due COVID-19 [...] Seasonal Influenza, Quadriva lent Hd (Fluzone Hd) 12/13/2022 Seasonal Influenza, Quadriva lent, No Preserve, IM 12/12/2016,12/30/2015 12/29/2016 TDAP (age 10 and older)(Boostrix) 01/03/2023, Varicella Zoster Vaccine (Adult) 10/15/2009 Zoster Vaccine Recombinant (Shingrix) 12/26/2023 documented as of this encounter Social History [...] No 08/07/2023 Does the household have a [facility] source of income? 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 Answer Date of Assessment Author No 07/25/2023 11:18 PM ELIFT Rachel Gordon RN * Are you blind [...] encounter Miscellaneous Notes * Telephone Encounter - Chuyita Ochoa OSA - 02/27/2024 10:59 AM EST Order for BiPAP filters entered in . [employer] documented in this encounter Plan of Treatment Upcoming Encounters Date Type Department Care Team (Late st Contact Info) Description 02/29/2024 9:00 AM EST Cardiac Studies Cardiac Studies, [facility] [address] [facility] [place] [address] 03/28/2024 1:00 PM EST Nurse Only Ancillary [facility] [address] [place] [address] Nurse, Int Med [address] [place] [address] 04/15/2024 3:45 PM EST Office Visit Dermatology [facility] [place] [address] [place] [address] Klaus Barros MD [address] [place] [address] 09/24/2024 1:00 PM EDT Office Visit General Internal Medicine Sanjuanita Melendez [place] [address] [place] [address] Klaus Turner MD [address] [facility] [place] [address] 02/27/2025 10:00 AM EST Office Visit Sleep Disorders Ctr Isaac Garcia [place] [address] [place] [phone] Anabella Thomas CRNP [address] [place] [address] Health Maintenance Due Date Last Done Comments Adult Wellness Visit 01/27/2018 01/27/2017 COVID-19 Vaccine ( season) 2023 05/29/2020, 05/01/2020 Zoster Vaccines (3 of 3) 02/20/2024 12/26/2023, 09/25 Depression Screening 08/06/2024 08/07/2023 DTap/Tdap Vaccines (4 - Td or Tdap) 01/03/2033 01/03/2023, 12/13/2011, 12/13/2011, Additional history exists Pneumococcal Vaccine: 65+ Years Completed 09/08/2016, 08/15/2014, 07/09/2007, Additional history exists Influenza Vaccine (FLU shot) Completed 02/2024, 12/13/2022, 12/13/2022, Additional history exists HPV (Gardasil) Vaccine Aged Out No lo [...] Agents on File Name Relationship Healthcare Agent Relationsak p Communication Dayanna Hightower Spouse Health Care Agen t (per Health Care Power of Ferry Pilot document) Care Teams Congressional [place] Aide Relationship Specialty Start Date End Date Klaus Turner MD 200 [place] [address] PCP - General Internal Medicine 06/22/21 documented as of this encounter
--- OUTSIDE RECORDS SUMMARY | 2024-04-30 19:26 | External Medical Summary | Summary of Care ---
Author Name Unknown Organization [facility] Address [address] [place] [address] Phone [phone] Care Team Providers Care District Court Bailiff Name Role Phone Klaus Turner MD Primary Care Provider + Reason for Visit * Reason Onset Date Comments Advice 12/07/2023 Encounter Details Date Type Department Care Team (Late st Contact Info) Description 12/07/2023 Telephone [facility] [address] [facility] [place] [address] Klaus Turner MD [address] [place] [address] Advice Allergies Active Allergy Reactions Criticality Noted Date Comments Guillaume Inhibitors Cough Low 04/11/2009 Adhesive Tape Itching Low 02/03/2012 Ctho-Gmy-aizkeka Iodinated Contrast Media Renal complications High 01/10/2023 Pt has only one kidnay AND pt has ESRD Latex Rash High 01/10/2023 Prednisone Nausea/vomiting Low 09/21/2011 All listed side effects, stomach upset, mood change, weakness documented as of this encounter (statuses as of 03/07/2024) Medications Aspirin 81 MG Oral Tablet Delayed Release Take 1 Tablet by mouth in the morning. Active Lanthanum Carbonate 500 MG Oral Tablet Chewable (Fosrenol) Take 1 Tablet by mouth in the morning and 1 Tablet at noon and 1 Tablet in the evening. Take with meals. Active [place] Caps 1 MG Oral Capsule TAKE 1 CAPSULE BY MOUTH EVERY DAY Active CPAP every night at bedtime. Active Finasteride 5 MG Oral Tablet (Proscar)Indica tions:BPH without obstruction/low er urinary tract symptoms TAKE 1 TABLET BY MOUTH DAILY 90 Tablet 2 3 Active Additional Information Patient not taking.Reported on 02/27/2024 Fluticasone Propionate 50 MCG/ACT Nasal Suspension (Flonase) Administer 2 Sprays into each nostril at bedtime. 4 Active documented as of this encounter (statuses as of 03/07/2024) Active Problems Problem Noted Date Diagnosed Date [...] as of this encounter (statuses as of 03/07/2024) Resolved Problems Problem Noted Date Diagnosed Date Resolved Date HTN, goal below 140/80 07/26/202312/25 Ascending aorta enlargement 05/11/2021 05/11/2021 Dialysis patient 04/17/2018 04/17/2018 Chronic kidney disease (CKD), stage V 07/08/2016 04/17/2018 Severe obstructive sleep pulp drier firer ea-hypopnea syndrome 12/22/2014 11/23/2016 Complex sleep apnea syndrome 12/22/2014 11/23/2016 Overview (12/22/2014): Titration study 06/12/2013: 225 [address], 2 OA's, 4 MA, 177 H, 3 RERA. 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 (5 years old or older) Answer Date of Assessment Author No 07/25/2023 11:18 PM EDT Rachel Gordon, MARYJANE * Because of a physical, mental, or [...] Entry Date Author No 07/25/2023 11:18 PM EDT Rachel Gordon RN documented in this encounter Miscellaneous Notes * Telephone Encounter - Casie Valencia LPN - 12/07/2023 9:09 AM EDT calling pt had a fall on 12/04 in the garage he legs felt weak and he went down. He is left hipis hurting and causing issue with walking. He is taking tylenol for pain relief. Scheduled appt with Dr Lindquist today at 10:20 documented in this encounter Plan of Treatment Upcoming Encounters Date Type Department Care Team (Late st Contact Info) Description 03/28/2024 1:00 PM EST Nurse Only Ancillary [facility] [address] [facility] [place] [address] Nurse, Int Med [address] [facility] [place] [address] 04/15/2024 3:45 PM EST Office Visit Dermatology [facility] [place] [facility] [place] [address] Klaus Barros MD [address] [facility] [place] [address] 09/24/2024 1:00 PM EDT Office Visit General Internal Medicine [facility] [place] [address] Klaus Turner MD [address] [facility] [place] [address] 02/27/2025 10:00 AM EST Office Visit Sleep Disorders Ctr [facility] [address] [place] [phone] Anabella Thomas CRNP [address] [place] [address] Health Maintenance Due Date Last Done Comments Adult Wellness Visit 01/27/2018 01/27/2017 COVID-19 Vaccine (3 - 2023- season) 2023 05/29/2020, 05/01/2020 Zoster Vaccines (3 [...] t (per Health Care Power of Senior Software Development Engineer document) Care Teams District Court Bailiff Relationship Specialty Start Date End Date Klaus Turner MD 200 [place] [address] PCP - General Internal Medicine 06/22/21 documented as of this encounter
--- OUTSIDE RECORDS SUMMARY | 2024-04-30 19:26 | External Medical Summary | Summary of Care ---
Author Name Unknown Organization [facility] Address [address] [place] [address] Phone [phone] Care Team Providers Care Diabetes Educator Name Role Phone Klaus Turner MD Primary Care Provider + Reason for Visit * Reason Onset Date Comments Order Request 03/28/2024 Encounter Details Date Type Department Care Team (Late st Contact Info) Description 03/28/2024 Telephone General Internal Medicine [facility] [place] 200 [facility] [place] [address] Klaus Turner MD [address] [place] [address] Order Request Allergies Active Allergy Reactions Criticality Noted Date Comments Guillaume Inhibitors Cough Low 04/11/2009 Adhesive Tape Itching Low 02/03/2012 Dpug-Zre-galxjxi Iodinated Contrast Media Renal complications High 01/10/2023 Pt has only one kidnay AND pt has ESRD Latex Rash High 01/10/2023 Prednisone Nausea/vomiting Low 09/21/2011 All listed side effects, stomach upset, mood change, weakness documented as of this encounter (statuses as of 03/28/2024) Medications Aspirin 81 MG Oral Tablet Delayed [...] as of this encounter (statuses as of 03/28/2024) Active Problems Problem Noted Date Diagnosed Date [...] as of this encounter (statuses as of 03/28/2024) Resolved Problems Problem Noted Date Diagnosed Date Resolved Date HTN, goal below 140/80 07/26/202312/25 Ascending aorta enlargement 05/11/2021 05/11/2021 Dialysis patient 04/17/2018 04/17/2018 Chronic kidney disease (CKD), stage V 07/08/2016 04/17/2018 Severe obstructive sleep ear specialist ea-hypopnea syndrome 12/22/2014 11/23/2016 Complex sleep apnea syndrome 12/22/2014 11/23/2016 Overview (12/22/2014): Titration study 06/12/2013: 225 [address], 2 OA's, 4 MA, 177 H, 3 RERA. 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 Answer Date of Assessment Author No 07/25/2023 11:18 PM EDRachel Grimm RN * Are you blind or do [...] encounter Miscellaneous Notes * Telephone Encounter - Dashawn Toribio RN - 03/28/2024 10:57 AM EST Patient is on nurse clinic schedule today for second Shingrix vaccine. Rx order pended for review and signature if agree. documented in this encounter Plan of Treatment Upcoming Encounters Date Type Department Care Team (Late st Contact Info) Description 04/04/2024 9:00 AM EST Nurse Only Ancillary Sanju[facility] Melendez [place] 200 [facility] [place] [address] Nurse, [facility] [address] [place] [address] 04/15/2024 3:45 PM EST Office Visit Dermatology [facility] 200 [facility] [place] [address] Klaus Barros MD 200 [facility] [place] [address] 09/24/2024 1:00 PM EDT Office Visit General Internal Medicine [facility] 200 [facility] [place] [address] Klaus Turner MD 200 [facility] [place] [address] 02/27/2025 10:00 AM EST [facility] [address] [place] [phone] Anabella Thomas CRNP [address] [place] [address] Health Maintenance Due Date Last Done Comments [...] Agen t (per Health Care Power of Assistant Maintenance Manager document) Care Teams Diabetes Educator Relationship Specialty Start Date End Date Klaus Turner MD 200 [place] [address] PCP - General Internal Medicine 06/22/21 documented as of this encounter
--- OUTSIDE RECORDS SUMMARY | 2024-04-30 19:26 | External Medical Summary | Summary of Care ---
Author Name Unknown Organization [facility] Address [address] [place] [address] Phone [phone] Care Team Providers Care Palletizer Operator Name Role Phone Klaus Turner MD Primary Care Provider + Reason for Visit * Reason Comments Follow Up Sleep Apnea Encounter Details Date Type Department Care Team (Late st Contact Info) Description 02/27/2024 9:30 AM EST Office Visit [facility] [place] [address] [place] [phone] Anabella Thomas CRNP [address] [place] [id number] ORLIN (obstructive sleep apnea)*; Treatment-emergent central sleep apnea Allergies Active Allergy Reactions Criticality Noted Date Comments Guillaume Inhibitors Cough Low 04/11/2009 Adhesive Tape Itching Low 02/03/2012 Yhhb-[id number]-[id number] Iodinated Contrast Media Renal complications High 01/10/2023 [...] in the evening. Take with meals. Active [place] Caps 1 MG Oral Capsule TAKE 1 [...] stage V 07/08/2016 04/17/2018 Severe obstructive sleep metal flooring installer ea-hypopnea syndrome 12/22/2014 11/23/2016 Complex sleep apnea syndrome 12/22/2014 11/23/2016 Overview (12/22/2014): Titration study 06/12/2013: 225 Polina, 2 OA's, 4 MA, 177 H, 3 RERA. Placed on ASV Bipap (MODEL MAKER) HTN, goal below 140/90 04/01/201411/04 CKD (chronic [...] the money to buy more. 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 Not on file Not on file documented as of this encounter Last Filed Vital Signs Vital Sign Reading Time Taken Comments Blood Pressure 120/80 02/27/2024 9:34 AM EST Pulse 86 02/27/2024 9:34 AM EST Temperature 36.4 C (97.5 F) 02/27/2024 9:34 AM ES T Respiratory Rate 16 02/27/2024 9:34 AM EST Oxygen Saturation 95% 02/27/2024 9:34 AM EST Inhaled Oxygen Concentration - - Weight 101.6 kg (224 lb) 02/27/2024 9:34 AM EST Height 172.7 cm (5' 8") 02/27/2024 9:34 AM EST Body Mass Index 34.06 02/27/2024 9:34 AM EST documented in this encounter Functional Status * Are you [...] Rachel Goode RN documented in this encounter Patient Instructions * Patient Instructions* Anabella Thomas CRNP - 02/27/2024 10:02 AM EST "dreamstation filters" documented in this encounter Progress Notes * Anabella Thomas CRNP - 02/27/2024 9:31 AM EST [facility] Santos Hightower is a 88 year old male seen today for yearly follow-up of ORLIN with TECSA. -PSG 03/2013 (wt 250): AHI 72 (mostly obstructive, some central and mixed) -Titration 05/2013: sub optimal titration onto BIPAP ST with persistent severe apnea and hypoxemia -ECHO 11/2022: EF 55% Interim History: BIPAP used nightly and with naps, noting ongoing benefit with use. Denies issues causing poor tolerance to treatment. Wakes early on dialysis days. Will nap with BPAP once he gets home. Notes good daytime energy. Compliance Data: Report date: last 30 days ending 02/25/2024 % total days used: 100 % days used > 4 hours: 100 Average hours per day used: 8 hours 22 mins Large leak: 0 rAHI: 5.3 p90%: 18.7/12.2 cmH2O Equipment: DME Provider: [employer] Device: [employer] BIPAP ASV Settings: EPAP 6-13, PS 0-10, max pressure 25, bi-flex 2 Interface Type: FFM Humidifier: used Cleaning: By hand routinely [place] Sleepiness Scale Question 02/27/2024 9:36 AM EST - Filed by Charito Vidales LPN What is the chance you will doze off in the following situation? Sitting and reading Slight chance of dozing Watching TV Slight chance of dozing Sitting inactive in a public place, such as a theater or meeting Slight chance of dozing As a passenger in a car for an hour without a break No chance of dozing Lying down to rest in the afternoon when circumstances permit High chance of dozing When sitting and talking to someone No chance of dozing When sitting quietly after lunch without alcohol No chance of dozing In a car, while stopped for a few minutes in traffic No chance of dozing Score (range: 0 - 24) 6 Problem List: Patient Active Problem List Diagnosis History of malignant neoplasm of kidney 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) Thoracic aortic aneurysm (HCC) ORLIN (obstructive sleep apnea) Gout of right foot HTN, goal below 150/90 Benign hypertension with CKD (chronic kidney disease) stage V (HCC) History of renal cell cancer Sinus node dysfunction (HCC) BPH with obstruction/lower urinary tract symptoms Dialysis patient (HCC) Hx of nonmelanoma skin cancer Ascending aorta enlargement (HCC) End stage renal disease on dialysis (HCC) ESRD (end stage renal disease) (HCC) History of TIA (transient ischemic attack) AVF (arteriovenous fistula) (HCC) Innominate vein stenosis, left Dialysis AV fistula malfunction (HCC) BISMARK (renal osteodystrophy) S/P arteriovenous (AV) fistula creation ESRD on dialysis (HCC) Current Medications: Current Outpatient Medications Medication Sig Dispense Refill Acetaminophen 500 MG Oral Tablet (Tylenol) Take 2 Tablets by mouth every 8 hours as needed. Zoster Vac Recomb Adjuvanted 50 MCG/0.5ML Intramuscular Suspension Reconstituted (Shingrix) Inject 0.5 mL into a large muscle now and repeat dose in 60 to 180 days 1 Each 0 Fluticasone Propionate 50 MCG/ACT Nasal Suspension (Flonase) Administer 2 Sprays into each nostril at bedtime. (Patient not taking: Reported on 12/07/2023) Finasteride 5 MG Oral Tablet (Proscar) TAKE 1 TABLET BY MOUTH DAILY (Patient not taking: Reported on 08/16/2023) 90 Tablet 2 CPAP every night at bedtime. [place] Caps 1 MG Oral Capsule TAKE 1 CAPSULE BY MOUTH EVERY DAY Lanthanum Carbonate 500 MG Oral Tablet Chewable (Fosrenol) Take 1 Tablet by mouth in the morning and 1 Tablet at noon and 1 Tablet in the evening. Take with meals. Aspirin 81 MG Oral Tablet Delayed Release Take 1 Tablet by mouth in the morning. No current facility-administered medications for this visit. Physical Exam: BP 120/80 | Pulse 86 | Temp 36.4 C (97.5 F) (Tympanic) | Resp 16 | Ht 1.727 m (5' 8") | Wt 101.6 kg (224 lb) | SpO2 95% | BMI 34.06 kg/m | BSA 2.21 m Constitutional: Alert, oriented and in no acute distress Skin: No abnormal mask markings on face Cardio: Regular rate and rhythm Chest: Normal respiratory effort at rest Neuro: Fluent speech Psych: Appropriate mood and affect. Assessment & Plan: Encounter Diagnoses Name Primary? ORLIN (obstructive sleep apnea) Yes Treatment-emergent central sleep apnea -compliant, therapeutic and benefiting with PAP treatment -continue use of BPAP ASV to include all periods of sleep opportunity -routine cleaning and change of supplies as needed was encouraged -replacement BPAP ASV requested when eligible as device is obsolete, >5 years old and may not beworking appropriately -filters requested - has been unable to receive from supplier, consider online shopping for filters -continue to avoid engaging in activities that require full alertness when feeling sleepy or tired Follow-up with Sleep Medicine in 1 year. VALENTINA Vazquez Pulmonary & [facility] I spent a total of 30-39 minutes (exact time 30 mins) on the date of service in preparation, delivery, and documentation of the care provided to Santos Hightower excluding any time spent in the performance of separately billed services. documented in this encounter Nursing Notes * Charito Vidales LPN - 02/27/2024 9:36 AM EST Chief Complaint Patient presents with Follow Up Sleep Apnea Cpap DME: [employer] [place] Sleepiness Scale Question 02/27/2024 9:36 AM EST - Filed by Charito Vidales LPN What is the chance you will doze off in the following situation? Sitting and reading Slight chance of dozing Watching TV Slight chance of dozing Sitting inactive in a public place, such as a theater or meeting Slight chance of dozing As a passenger in a car for an hour without a break No chance of dozing Lying down to rest in the afternoon when circumstances permit High chance of dozing When sitting and talking to someone No chance of dozing When sitting quietly after lunch without alcohol No chance of dozing In a car, while stopped for a few minutes in traffic No chance of dozing Score (range: 0 - 24) 6 documented in this encounter Plan of Treatment Upcoming Encounters Date Type Department Care Team (Late st Contact Info) Description 02/29/2024 9:00 AM EST Cardiac Studies Cardiac Studies, [address] [place] [address] 03/28/2024 1:00 PM EST Nurse Only Ancillary [facility] [address] [facility] [place], [place] [address] Nurse, Int Med [address] [facility] [place], [place] [address] 04/15/2024 3:45 PM EST Office Visit Dermatology [facility] [address] [place] [place] [address] Klaus Barros MD [address] [place] [place] [address] 09/24/2024 1:00 PM EDT Office Visit General Internal Medicine [facility] [address] [facility] [place] [address] Klaus Turner MD [address] [facility] [place], [place] [address] 02/27/2025 10:00 AM EST Office Visit Sleep Disorders Ctr [facility] [address] [place] [phone] Anabella Thomas CRNP [address] [place] [address] Health Maintenance Due Date Last Done Comments Adult Wellness Visit 01/27/2018 01/27/2017 COVID-19 Vaccine (3 season) 2023 05/29/2020, 05/01/2020 Zoster Vaccines (3 [...] as of this encounter Visit Diagnoses Diagnosis ORLIN (obstructive sleep apnea)- Primary Obstructive sleep apnea (adult) (pediatric) Treatment-emergent central sleep apnea documented in this encounter Advance Directives * [...] Agents on File Name Relationship Healthcare Agent [facility] Communication Dayanna Hightower Spouse Health Care Agen t (per Health Care Power of Hair Blender document) Care Teams Palletizer Operator Relationship Specialty Start Date End Date Klaus Turner MD [address] [place] [address] PCP - General Internal Medicine 06/22/21 documented as of this encounter
--- OUTSIDE RECORDS SUMMARY | 2024-04-30 19:26 | External Medical Summary | Summary of Care ---
Author Name Unknown Organization [facility] Address [address] [place] [address] Phone [phone] Care Team Providers Care Alcohol Law Enforcement Agent Name Role Phone Klaus Turner MD Primary Care Provider + Reason for Visit * Reason Onset Date Comments Fax 03/14/2024 Physical therapy re-cert form Encounter Details Date Type Department Care Team (Late st Contact Info) Description 03/14/2024 Telephone General Internal Medicine [facility] [place] [address] [place] [address] Klaus Turner MD [address] [place] [address] Fax (Physical therapy re-cert form) Allergies Active Allergy Reactions Criticality Noted Date Comments Guillaume Inhibitors Cough Low 04/11/2009 Adhesive Tape Itching Low 02/03/2012 Hxfn-Vhh-nivmeoa Iodinated Contrast Media Renal complications High 01/10/2023 Pt has only one kidnay AND pt has ESRD Latex Rash High 01/10/2023 Prednisone Nausea/vomiting Low 09/21/2011 All listed side effects, stomach upset, mood change, weakness documented as of this encounter (statuses as of 04/01/2024) Medications Aspirin 81 MG Oral Tablet Delayed [...] as of this encounter (statuses as of 04/01/2024) Active Problems Problem Noted Date Diagnosed Date [...] as of this encounter (statuses as of 04/01/2024) Resolved Problems Problem Noted Date Diagnosed Date Resolved Date HTN, goal below 140/80 07/26/202312/25 Ascending aorta enlargement 05/11/2021 05/11/2021 Dialysis patient 04/17/2018 04/17/2018 Chronic kidney disease (CKD), stage V 07/08/2016 04/17/2018 Severe obstructive sleep 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 Name/Company sending fax: [facility] What fax is pertaining to: physical therapy re certification form- needs signed Date(s) they sent request: 02/19 and 02/27 Verified fax number they are sending to is correct (Y or N): yes Callback Number for the clinic to call to verified if fax was received: [phone] Keisha stated the patient is unable to be seen until this form is signed and sent back. documented in this encounter Plan of Treatment Upcoming Encounters Date Type Department Care Team (Late st Contact Info) Description 04/04/2024 9:00 AM EST Nurse Only Ancillary [facility] [address] [facility] [address] [place] [address] Nurse, Int Med [address] [facility] [place] [address] 04/15/2024 3:45 PM EST Office Visit Dermatology [facility] [address] [facility] [place] [address] Klaus Barros MD [address] [facility] [place] [address] 09/24/2024 1:00 PM EDT Office Visit General Internal Medicine [facility] [address] [facility] [place] [address] Klaus Turner MD [address] [facility] [place] [address] 02/27/2025 10:00 AM EST Office Visit Sleep Disorders Ctr [facility] [address] [facility] [place] [phone] Anabella [facility] CRNP [address] [facility] [address] Health Maintenance Due Date Last Done Comments Adult Wellness Visit 01/27/2018 01/27/2017 COVID-19 Vaccine (2023- season) 2023 05/29/2020, 05/01/2020 Zoster Vaccines (3 [...] Agents on File Name [facility] Dayanna [facility]ight[facility] Spouse Health Care Agen t (per Health Care Power of Superintendent Tests document) Care Teams Alcohol Law Enforcement Agent Relationship Specialty Start Date End Date Klaus Turner MD [address] [place] [address] PCP - General Internal Medicine 06/22/21 documented as of this encounter
[2024-05-01 01:03] LABS: Hematocrit (blood only) 36.5 % (42.0-52.0); Hemoglobin 12.2 g/dl (14.0-18.0)
[2024-05-01 06:59] LABS: Hematocrit (blood only) 35.4 % (42.0-52.0); Hemoglobin 11.7 g/dl (14.0-18.0); Mean Corpuscular Hgb Conc 33.1 g/dL (32.0-36.0); Mean Corpuscular Volume 87.6 fL (80.0-100.0); Mean Platelet Volume 9.1 fL (9.4-12.4); Platelet Count 203 K/uL (130-400); RDW Coefficient of Variation 14.2 % (11.5-14.5); RDW Standard Deviation 45.8 fL (36.4-46.3); Red Blood Count 4.04 M/uL (4.70-6.10); White Blood Count 8.14 K/ul (4.8-10.8)
[2024-05-01 07:31] LABS: BUN Creatinine Ratio 5.9 (10-20); Calcium 9.5 mg/dl (8.6-10.3); Creatinine Clr Calc Pharmacy 7.3 ml/min; Potassium 4.6 mmol/L (3.5-5.1)
[2024-05-01] MEDS: FINASTERIDE 5 MG TAB PO SCH (08:51)
[2024-05-01] MEDS: NEPHROCAPS PO SCH (08:51)
[2024-05-01] MEDS: ACETAMINOPHEN 325 MG TAB PO PRN (08:56)
--- NOTE | 2024-05-01 09:50 | Gastrointestinal Consultation ---
Date of Consultation May 01, 2024 Assessment & Plan (1) Rectal bleeding: Addendum: Received notification that patient was taken for dialysis and per anesthesia the patient will need to have his flexible sigmoidoscopy performed on 05/02/24 instead. Keep NPO after midnight. -Keep NPO -Will order 2 fleet enemas in preparation for flexible sigmoidoscopy today -Continue to monitor H/H and for further GI bleeding Supervising Physician Co-Signing Physician Notes Agree with above. Flexible sigmoidoscopy tomorrow. History of Present Illness Attending Physician: Jackelyn Solorzano MD History of Present Illness Patient isn an 89 yo male with PMH of renal cell carcinoma s/p nephrectomy, ESRD on HD, ascending aortic aneurysm, MGUS, & ORLIN on BiPAP. He discussed his symptoms with Dr. Tompkins on 04/30/24. He explained that he had 1 bowel movement Monday with bright red blood in the toilet without clots. He notes he had another episode on Monday and Monday. His urged him to come to the hospital. He denied constipation, straining, diarrhea, or rectal pain. H/H currently 11.7/35.4. No abdominal imaging available. He denies any further bowel movements or bleeding overnight since his evaluation with Dr. Tompkins on 04/30/24. Allergies Allergy/AdvReac Type Severity Reaction Status Date / Time latex Allergy Severe REDNESS ON Verified 12/17/23 10:31 SKIN prednisone Allergy Severe HYPOTENSION, Verified 12/17/23 10:31 ABDOMINAL PAIN RIKI Inhibitors AdvReac Intermediate COUGH Verified 12/17/23 10:31 Iodinated Contrast Media AdvReac Unknown pt only Verified 12/17/23 10:31 has 1 kidney so is not supposed to have contrast Bandaid Allergy Intermediate SKIN Uncoded 12/17/23 10:31 IRRITATION--PLASTIC BANDAIDS Home Medications Medication Instructions Recorded Confirmed Type aspirin 81 mg tablet,delayed 81 mg PO DAILY 07/25/23 04/30/24 History release finasteride 5 mg tablet 5 mg PO DAILY #90 tabs 02/06/24 04/30/24 Rx lanthanum 500 mg chewable tablet 500 mg PO TIDM 04/30/24 04/30/24 History (Fosrenol) vitamin B complex and vitamin C 1 cap PO DAILY 04/30/24 04/30/24 History no.20-folic acid 1 mg capsule (Triphrocaps) Patient History Medical History ESRD (end stage renal disease) on dialysis History of COVID-2021--mild symptoms, no symptoms now BPH (benign prostatic hyperplasia) Arthritis Gout Hemodialysis patient MONDAY/MONDAY/MONDAY at [facility] SINCE 11/2017 F/U DR RODRIGUEZ Sleep apnea CPAP HS Aortic aneurysm UNDER OBSERVATION-F/U DR SAENZ Transient ischemic attack (TIA) AGE 50 NO ISSUES SINCE Surgical History History of anesthesia reaction PER PT WAS TOLD-EPISODE POST OP AVF SURGERY-"PAUSE" IN HEART-ATTRIBUTED TO MEDICATIONS TAKEN COMBINED WITH ANESTHESIA GIVEN-NO ISSUES SINCE History of vascular access device AV FISTULA LEFT UPPER ARM-2 SURGERIES History of colonoscopy X MULTIPLE--last 2018 @ [facility] History of cataract surgery R/L History of appendectomy Cancer RIGHT NEPHRECTOMY Family History Brother Family hx of colon cancer Hypertension Father Family hx of colon cancer Sister Cancer Other No family history of adverse response to anesthesia No family history of bleeding disorder Social History Smoking Status: Never smoker Second Hand Exposure: Yes (FATHER SMOKED); Do You Dip or Chew Tobacco: No; Hx Alcohol Use: No Hx Substance Use: No Preferred Language: Arabic Communication Ability: Effective 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 Open Pit Required: No Beliefs That Will Affect Care: None Current Living Situation: Spouse Current Living Situation Comment: lives in [facility] with first floor living ability Other Information That Helps Us Care for You: No Feels Safe at Home: Yes Assistive Devices: CPAP Review of Systems Constitutional: no fever and no chills Respiratory: no cough and no dyspnea Cardiovascular: no chest pain Gastrointestinal: + blood in stools; no abdominal pain, no constipation and no diarrhea/loose stools Psychiatric: no problem reported Physical Exam Constitutional: well developed Respiratory: normal respiratory effort Cardiovascular: Rate/Rhythm: regular rate Gastrointestinal (Abdomen): normal bowel sounds, soft, nontender, no h epatosplenomegaly Psychiatric: Orientation: alert and oriented x 3 Results & Data Vital Signs (Past 12 Hours) Vital Signs Temp Pulse Pulse Resp BP Pulse Ox O2 Del Method 05/01/24 07:56 36.8 C 79 20 118/70 93 Room Air 05/01/24 07:41 78 05/01/24 03:58 36.9 C 79 19 130/75 93 CPAP 05/01/24 03:39 80 22 92 05/01/24 00:45 Room Air, BiPAP 04/30/24 23:24 37.1 C 85 17 150/76 H 95 CPAP 04/30/24 22:30 82 PG Care Time/CCT Total # of Minutes Spent Total Time Spent with Patient: Total time spent is greater than 50% in coordination of care (as documented) at patient's floor/unit and/or counseling patient: Coding Level of Care Code 78149 INT INP/OBS CARE 375MIN Diagnoses Rectal bleeding K62.5
--- NOTE | 2024-05-01 10:05 | Nephrology Consultation ---
Date of Consultation May 01, 2024 Assessment & Plan (1) ESRD (end stage renal disease) on dialysis: today is his dialysis day. NO e/o fluid overload. No major issues with electrolytes. However given GI bleed Dialysis complicated and will do modified dialysis with no Heparin and less UF than usual of 1.5 kilo. 3 hrs 2k and take 1.5 kilo off. (2) GI bleed: NO major drop in hgb. hgb still 11.6. h/o renal cancer. NO epo. History of Present Illness Reason for Consultation: ESRD on dialysis Attending Physician: Jackelyn Solorzano MD History of Present Illness 89/M with ESRD on Dialysis --MWF for last 6 years through AVF. had GI bleed but good hgb and now admitted. Vital signs are fine. Last HD was Monday. He also had renal cell carcinoma s/p nephrectomy, ascending aortic aneurysm, MGUS, ORLIN on BiPAP and other problems listed below who presented to the ED for evaluation of rectal bleeding. symptoms began about 3 days ago. He reports 3 episodes of bright red bleeding per rectum with last episode being this morning. Stools have been soft. Patient denies abdominal pain, nausea, vomiting. No f deonna or chills. Denies chest pain and shortness of breath. No lightheadedness, dizziness, diaphoresis, syncopal events. Denies urinary symptoms. In the ED, patient was hemodynamically stable. Labs show Hgb 13.0. Patient had a brief episode of hypoxia at 88% on room air, patient was subsequently placed on 2L via NC. CXR clear, flu, COVID, RSV testing negative. ROS--see HPI. Allergies Allergy/AdvReac Type Severity Reaction Status Date / Time latex Allergy Severe REDNESS ON Verified 12/17/23 10:31 SKIN prednisone Allergy Severe HYPOTENSION, Verified 12/17/23 10:31 ABDOMINAL PAIN RIKI Inhibitors AdvReac Intermediate COUGH Verified 12/17/23 10:31 Iodinated Contrast Media AdvReac Unknown pt only Verified 12/17/23 10:31 has 1 kidney so is not supposed to have contrast Bandaid Allergy Intermediate SKIN Uncoded 12/17/23 10:31 IRRITATION--PLASTIC BANDAIDS Home Medications Medication Instructions Recorded Confirmed Type aspirin 81 mg tablet,delayed 81 mg PO DAILY 07/25/23 04/30/24 History release finasteride 5 mg tablet 5 mg PO DAILY #90 tabs 02/06/24 04/30/24 Rx lanthanum 500 mg chewable tablet 500 mg PO TIDM 04/30/24 04/30/24 History (Fosrenol) vitamin B complex and vitamin C 1 cap PO DAILY 04/30/24 04/30/24 History no.20-folic acid 1 mg capsule (Triphrocaps) Patient History Medical History ESRD (end stage renal disease) on dialysis History of COVID-2021--mild symptoms, no symptoms now BPH (benign prostatic hyperplasia) Arthritis Gout Hemodialysis patient MONDAY/MONDAY/MONDAY at [facility] SINCE 11/2017 F/U DR RODRIGUEZ Sleep apnea CPAP HS Aortic aneurysm UNDER OBSERVATION-F/U DR SAENZ Transient ischemic attack (TIA) AGE 50 NO ISSUES SINCE Surgical History History of anesthesia reaction PER PT WAS TOLD-EPISODE POST OP AVF SURGERY-"PAUSE" IN HEART-ATTRIBUTED TO MEDICATIONS TAKEN COMBINED WITH ANESTHESIA GIVEN-NO ISSUES SINCE History of vascular access device AV FISTULA LEFT UPPER ARM-2 SURGERIES History of colonoscopy X MULTIPLE--last 2018 @ [facility] History of cataract surgery R/L History of appendectomy Cancer RIGHT NEPHRECTOMY Family History Brother Family hx of colon cancer Hypertension Father Family hx of colon cancer Sister Cancer Other No family history of adverse response to anesthesia No family history of bleeding disorder Social History Smoking Status: Never smoker Second Hand Exposure: Yes (FATHER SMOKED); Do You Dip or Chew Tobacco: No; Hx Alcohol Use: No Hx Substance Use: No Preferred Language: South Sudanese Communication Ability: Effective Leaf Conditioner Required: No Beliefs That Will Affect Care: None Current Living Situation: Spouse [facility] Sit[facility] Other Information That Helps Us Care for You: No Feels Safe at Home: Yes Assistive Devices: Cane, CPAP, Denture - Upper, Denture - Lower, Glasses and Hearing Aid - Bilateral Results & Data Vital Signs (Past 12 Hours) Vital Signs Temp Pulse Pulse Resp BP Pulse Ox O2 Del Method 05/01/24 07:56 36.8 C 79 20 118/70 93 Room Air 05/01/24 07:41 78 05/01/24 03:58 36.9 C 79 19 130/75 93 CPAP 05/01/24 03:39 80 22 92 05/01/24 00:45 Room Air, BiPAP 04/30/24 23:24 37.1 C 85 17 150/76 H 95 CPAP 04/30/24 22:30 82 Laboratory Results reviewed CBC and renal panel.
[2024-05-01] MEDS: SOD PHOSPHATE/SOD BIPHOSPHATE ENEMA 132 ML BTL PR STA (10:53)
[2024-05-01] MEDS: EPOETIN ALFA 4,000 UNIT/ML VIAL IV ONE (12:10)
--- NOTE | 2024-05-01 17:27 | Hospitalist Progress Note ---
Date of Service May 01, 2024 Assessment & Plan (1) Rectal bleeding: (2) Hypoxia: (3) ORLIN on CPAP: (4) ESRD (end stage renal disease) on dialysis: (5) Aortic aneurysm: Plan Mr. Hightower is an 89-year-old male with PMH renal cell carcinoma s/p nephrectomy, ESRD on HD MWF, ascending aortic aneurysm, MGUS, ORLIN on BiPAP, and other problems listed below who presents to the ED for evaluation of BRBPR #BRBPR #chronic anemia iso chronic renal disease Patient presenting from home with reports of rectal bleeding x 3 days hgb at baseline 02-05 Gi consulted: plan for sigmoidoscopy 05/02 #congestion #Transient Hypoxia: Patient had a brief episode of hypoxia in the ED at 88% while on room air, place on 2L via NC CXR clear, patient denies respiratory symptoms remains on RA trial claritin and flonase for congestion #ORLIN on CPAP: Continue HS BiPAP as per home settings # ESRD (end stage renal disease) on dialysis: HD MWF Nephro consult Continue usual routine renal medications Has required multiple angioplasties of fistula in the past, most recently 10/2023 - holding ASA due to GI bleeding #Aortic aneurysm: Ascending aorta measured 4.6 cm on echo 02/2024 SCDs due to GI bleeding CLD for now NPO midnight Admission and Anticipated Discharge Date Admission Date: April 30, 2024 Subjective Reports some sinus congestion and frustration with being NPO Reports no other signs of bleeding at this time Physical Exam Constitutional: WD/WN, vitals as above Respiratory: normal respiratory effort, lungs clear to auscultation Cardiovascular: RRR, no murmur, no edema Gastrointestinal (Abdomen): normal bowel sounds, soft, nontender, no hepatosplenomegaly Results & Data Results & Data Vital Signs (Past 12 Hours) Vital Signs Temp Pulse Pulse Pulse Resp BP BP 05/01/24 15:15 78 05/01/24 15:11 36.7 C 76 16 128/51 L 05/01/24 13:47 36.8 C 76 97/68 L 05/01/24 13:30 72 103/54 L 05/01/24 13:00 72 90/55 L 05/01/24 12:30 74 85/55 L 05/01/24 12:00 69 87/53 L 05/01/24 11:30 71 89/59 L 05/01/24 11:00 79 101/68 05/01/24 10:42 79 100/60 05/01/24 10:38 36.5 C 79 05/01/24 10:15 05/01/24 07:56 36.8 C 79 20 118/70 05/01/24 07:41 78 Pulse Ox O2 Del Method 05/01/24 15:15 05/01/24 15:11 94 Room Air 05/01/24 13:47 05/01/24 13:30 05/01/24 13:00 05/01/24 12:30 05/01/24 12:00 05/01/24 11:30 05/01/24 11:00 05/01/24 10:42 05/01/24 10:38 05/01/24 10:15 Room Air 05/01/24 07:56 93 Room Air 05/01/24 07:41 Laboratory Results Short CBC 04/30/24 05/01/24 05/01/24 Range/Units 18:05 00:32 06:25 WBC 8.14 (4.8-10.8) K/ul Hgb 12.6 L 12.2 L 11.7 L (14.0-18.0) g/dl Hct 37.2 L 36.5 L 35.4 L (42.0-52.0) % Plt Count 203 (130-400) K/uL BMP 05/01/24 06:25 Sodium 138 Potassium 4.6 Chloride 94 L Carbon Dioxide 33 H BUN 47 H Creatinine 7.99 H* D Glucose 85 Calcium 9.5 Medications Administered Home Medications Medication Instructions Recorded Confirmed Last Taken aspirin 81 mg tablet,delayed 81 mg PO DAILY 07/25/23 04/30/24 12/16/23 release finasteride 5 mg tablet 5 mg PO DAILY #90 tabs 02/06/24 04/30/24 Unknown lanthanum 500 mg chewable tablet 500 mg PO TIDM 04/30/24 04/30/24 Unknown (Fosrenol) vitamin B complex and vitamin C 1 cap PO DAILY 04/30/24 04/30/24 Unknown no.20-folic acid 1 mg capsule (Triphrocaps) Active Medications Generic Name Dose Route Start Last Admin Trade Name Mariluz PRN Reason Stop Dose Admin Acetaminophen 650 mg 04/30/24 16:55 05/01/24 08:56 Acetaminophen 325 Mg Tab PO 05/30/24 16:54 650 mg Q4H PRN Administration pain/fever Finasteride 5 mg 05/01/24 09:00 05/01/24 08:51 Finasteride 5 Mg Tab PO 05/31/24 08:59 5 mg DAILY YAYO Administration Vitamin B Complex/Folic Acid 1 cap 05/01/24 09:00 05/01/24 08:51 Nephrocaps PO 05/31/24 08:59 1 cap DAILY YAYO Administration
[2024-05-01] MEDS: LANTHANUM 1000 MG PO SCH (18:01)
[2024-05-01] MEDS: FLUTICASONE PROPIONATE NA SPR 16 GM BTL SCH (18:02)
[2024-05-01] MEDS: LORATADINE 10 MG TAB PO ONE (18:02)
[2024-05-02 07:30] LABS: Hematocrit (blood only) 35.8 % (42.0-52.0); Hemoglobin 11.7 g/dl (14.0-18.0); Mean Corpuscular Hemoglobin 28.6 pg (25.0-34.0); Mean Corpuscular Hgb Conc 32.7 g/dL (32.0-36.0); Mean Corpuscular Volume 87.5 fL (80.0-100.0); Mean Platelet Volume 8.7 fL (9.4-12.4); Platelet Count 185 K/uL (130-400); RDW Coefficient of Variation 14.4 % (11.5-14.5); RDW Standard Deviation 45.8 fL (36.4-46.3); Red Blood Count 4.09 M/uL (4.70-6.10); White Blood Count 7.43 K/ul (4.8-10.8)
[2024-05-02 08:01] LABS: BUN Creatinine Ratio 5.2 (10-20); Calcium 9.6 mg/dl (8.6-10.3); Creatinine Clr Calc Pharmacy 9.2 ml/min; Magnesium 2.1 mg/dl (1.7-2.4); Phosphorus 4.8 mg/dl (2.5-4.9); Potassium 4.3 mmol/L (3.5-5.1)
--- NOTE | 2024-05-02 09:26 | Gastroenterology Progress Note ---
Date of Service May 02, 2024 Assessment & Plan (1) Rectal bleeding: Plan: -2 tap water enemas to be administered -Keep NPO for flexible sigmoidoscopy today Admission and Anticipated Discharge Date Admission Date: April 30, 2024 Supervising Physician Co-Signing Physician Notes No further bleeding no bleeding with 2 tapwater enemas. Suspect this bleeding is hemorrhoidal. Will evaluate the distal colon to exclude lesions just above the hemorrhoids that could account for bleeding Subjective Patient is an 89 yo male with rectal bleeding. He was unable to undergo a flex sig on 05/01/24 per anesthesia. He is NPO this morning. No further GI bleeding. H/H 11.7/35.8. Review of Systems Gastrointestinal: no abdominal pain and no blood in stools Physical Exam Constitutional: well developed Respiratory: normal respiratory effort Gastrointestinal (Abdomen): Inspection/Auscultation: abdomen normal to inspection Psychiatric: Orientation: alert and oriented x 3 Results & Data Results & Data Vital Signs (Past 12 Hours) Vital Signs Temp Pulse Pulse Resp BP Pulse Ox O2 Del Method 05/02/24 07:56 36.4 C L 71 18 116/68 94 Room Air 05/02/24 05:35 74 05/02/24 05:08 77 12 90 05/02/24 03:41 36.6 C 98 H 20 142/67 H 94 Room Air, CPAP 05/02/24 00:22 37.2 C 91 H 20 123/78 92 Room Air 05/01/24 23:47 68 25 H 95 05/01/24 23:45 86 05/01/24 23:06 Room Air, BiPAP FiO2 05/02/24 07:56 05/02/24 05:35 05/02/24 05:08 21 05/02/24 03:41 05/02/24 00:22 05/01/24 23:47 21 05/01/24 23:45 05/01/24 23:06 PG Care Time/CCT Total # of Minutes Spent Total Time Spent with Patient: Total time spent is greater than 50% in coordination of care (as documented) at patient's floor/unit and/or counseling patient: Coding Level of Care Code 15258 SUB INP/OBS CARE 2/35MIN Diagnoses Rectal bleeding K62.5
--- NOTE | 2024-05-02 11:37 | Hospitalist Progress Note ---
Date of Service May 02, 2024 Assessment & Plan (1) Rectal bleeding: (2) Hypoxia: (3) ORLIN on CPAP: (4) ESRD (end stage renal disease) on dialysis: (5) Aortic aneurysm: Plan Mr. Hightower is an 89-year-old male with PMH renal cell carcinoma s/p nephrectomy, ESRD on HD MWF, ascending aortic aneurysm, MGUS, ORLIN on BiPAP, and other problems listed below who presents to the ED for evaluation of BRBPR #BRBPR #chronic anemia iso chronic renal disease Patient presenting from home with reports of rectal bleeding x 3 days hgb at baseline 02-05 Gi consulted: plan for sigmoidoscopy today s/p 2 tal water enemas Hgb stable #congestion #Transient Hypoxia: Patient had a brief episode of hypoxia in the ED at 88% while on room air, place on 2L via NC CXR clear, patient denies respiratory symptoms remains on RA trial Claritin and flonase for congestion--successful and resolved #ORLIN on CPAP: Continue HS BiPAP as per home settings # ESRD (end stage renal disease) on dialysis: HD MWF Nephro consult Continue usual routine renal medications Has required multiple angioplasties of fistula in the past, most recently 10/2023 - holding ASA due to GI bleeding #Aortic aneurysm: Ascending aorta measured 4.6 cm on echo 02/2024 SCDs due to GI bleeding NPO for now, potential dispo today v tomorrow contingent on scope results Admission and Anticipated Discharge Date Admission Date: April 30, 2024 Subjective NAEO reports congestion resolved and feeling good outside of awaiting diet Denies any further episode of GIB Physical Exam Constitutional: WD/WN, vitals as above Respiratory: normal respiratory effort, lungs clear to auscultation Cardiovascular: RRR, no murmur, no edema Gastrointestinal (Abdomen): normal bowel sounds, soft, nontender, no hepatosplenomegaly Results & Data Results & Data Vital Signs (Past 12 Hours) Vital Signs Temp Pulse Pulse Resp BP Pulse Ox O2 Del Method 05/02/24 07:56 36.4 C L 71 18 116/68 94 Room Air 05/02/24 05:35 74 05/02/24 05:08 77 12 90 05/02/24 03:41 36.6 C 98 H 20 142/67 H 94 Room Air, CPAP 05/02/24 00:22 37.2 C 91 H 20 123/78 92 Room Air 05/01/24 23:47 68 25 H 95 05/01/24 23:45 86 FiO2 05/02/24 07:56 05/02/24 05:35 05/02/24 05:08 21 05/02/24 03:41 05/02/24 00:22 05/01/24 23:47 21 05/01/24 23:45 Laboratory Results Short CBC 05/02/24 Range/Units 07:11 WBC 7.43 (4.8-10.8) K/ul Hgb 11.7 L (14.0-18.0) g/dl Hct 35.8 L (42.0-52.0) % Plt Count 185 (130-400) K/uL BMP 05/02/24 07:11 Sodium 138 Potassium 4.3 Chloride 98 Carbon Dioxide 31 BUN 33 H Creatinine 6.34 H* D Glucose 86 Calcium 9.6 Medications Administered Home Medications Medication Instructions Recorded Confirmed Last Taken aspirin 81 mg tablet,delayed 81 mg PO DAILY 07/25/23 04/30/24 12/16/23 release finasteride 5 mg tablet 5 mg PO DAILY #90 tabs 02/06/24 04/30/24 Unknown lanthanum 500 mg chewable tablet 500 mg PO TIDM 04/30/24 04/30/24 Unknown (Fosrenol) vitamin B complex and vitamin C 1 cap PO DAILY 04/30/24 04/30/24 Unknown no.20-folic acid 1 mg capsule (Triphrocaps) Active Medications Generic Name Dose Route Start Last Admin Trade Name Freq PRN Reason Stop Dose Admin Acetaminophen 650 mg 04/30/24 16:55 05/01/24 08:56 Acetaminophen 325 Mg Tab PO 05/30/24 16:54 650 mg Q4H PRN Administration pain/fever Finasteride 5 mg 05/01/24 09:00 05/02/24 09:46 Finasteride 5 Mg Tab PO 05/31/24 08:59 5 mg DAILY YAYO Administration Fluticasone Propionate 1 sprays 05/01/24 17:30 05/02/24 09:46 Fluticasone Propionate Na Spr 16 Gm Btl NA 05/31/24 17:29 1 sprays DAILY YAYO Administration *Lanthanum 1000 Mg 0.5 each 05/01/24 17:15 05/02/24 09:45 Tablet* Non- PO 05/29/24 17:14 500 mg Formulary Patient's TIDM YAYO Administration Own Med Vitamin B Complex/Folic Acid 1 cap 05/01/24 09:00 05/02/24 09:46 Nephrocaps PO 05/31/24 08:59 1 cap DAILY YAYO Administration
--- NOTE | 2024-05-02 12:46 | Anesthesiology Consultation ---
Date of Service May 02, 2024 Assessment & Plan Chart Review Chart Review: Acceptable Risk for Surgery Consults Requested none ASA ASA3 Proposed Anesthesia Anesthesia Type: MAC History Surgery Operation Date: 05/01/24 17:00 Proposed Procedures p Flexible Sigmoidoscopy Dr. Turner Tompkins MD Operation Date: 05/02/24 16:30 Proposed Procedures p Flexible Sigmoidoscopy Dr. Turner Tompkins MD Height/Weight Height: 5 ft 8 in Weight: 99.7 kg Allergies Allergy/AdvReac Type Severity Reaction Status Date / Time latex Allergy Severe REDNESS ON Verified 12/17/23 10:31 SKIN prednisone Allergy Severe HYPOTENSION, Verified 12/17/23 10:31 ABDOMINAL PAIN RIKI Inhibitors AdvReac Intermediate COUGH Verified 12/17/23 10:31 Iodinated Contrast Media AdvReac Unknown pt only Verified 12/17/23 10:31 has 1 kidney so is not supposed to have contrast Bandaid Allergy Intermediate SKIN Uncoded 12/17/23 10:31 IRRITATION--PLASTIC BANDAIDS Medications Home Medications Medication Instructions Recorded Confirmed Last Taken aspirin 81 mg tablet,delayed 81 mg PO DAILY 07/25/23 04/30/24 12/16/23 release finasteride 5 mg tablet 5 mg PO DAILY #90 tabs 02/06/24 04/30/24 Unknown lanthanum 500 mg chewable tablet 500 mg PO TIDM 04/30/24 04/30/24 Unknown (Fosrenol) vitamin B complex and vitamin C 1 cap PO DAILY 04/30/24 04/30/24 Unknown no.20-folic acid 1 mg capsule (Triphrocaps) Active Medications Generic Name Dose Route Start Last Admin Trade Name Yovanyq PRN Reason Stop Dose Admin Acetaminophen 650 mg 04/30/24 16:55 05/01/24 08:56 Acetaminophen 325 Mg Tab PO 05/30/24 16:54 650 mg Q4H PRN Administration pain/fever Finasteride 5 mg 05/01/24 09:00 05/02/24 09:46 Finasteride 5 Mg Tab PO 05/31/24 08:59 5 mg DAILY YAYO Administration Fluticasone Propionate 1 sprays 05/01/24 17:30 05/02/24 09:46 Fluticasone Propionate Na Spr 16 Gm Btl NA 05/31/24 17:29 1 sprays DAILY YAYO Administration *Lanthanum 1000 Mg 0.5 each 05/01/24 17:15 05/02/24 11:41 Tablet* Non- PO 05/29/24 17:14 Not Given Formulary Patient's TIDM YAYO Own Med Vitamin B Complex/Folic Acid 1 cap 05/01/24 09:00 05/02/24 09:46 Nephrocaps PO 05/31/24 08:59 1 cap DAILY YAYO Administration NPO Date Last Intake of Fluids: 05/02/24 Time Last Intake of Fluids: 10:30 Last Intake of Fluids Comment: sip of water Date Last Intake of Solids: 04/30/24 Last Intake of Solids Comment: Greater then 8 hrs Past Medical History Medical History ESRD (end stage renal disease) on dialysis History of COVID-2021--mild symptoms, no symptoms now BPH (benign prostatic hyperplasia) Arthritis Gout Hemodialysis patient MONDAY/MONDAY/MONDAY at [facility] SINCE 11/2017 F/U DR RODRIGUEZ Sleep apnea CPAP HS Aortic aneurysm UNDER OBSERVATION-F/U DR SAENZ Transient ischemic attack (TIA) AGE 50 NO ISSUES SINCE Exercise / Class Metabolic Activity III < 4 Walking/Shop/Light housework Past Family History Family History Brother Family hx of colon cancer Hypertension Father Family hx of colon cancer Sister Cancer Other No family history of adverse response to anesthesia No family history of bleeding disorder Past Surgical History Surgical History History of anesthesia reaction PER PT WAS TOLD-EPISODE POST OP AVF SURGERY-"PAUSE" IN HEART-ATTRIBUTED TO MEDICATIONS TAKEN COMBINED WITH ANESTHESIA GIVEN-NO ISSUES SINCE History of vascular access device AV FISTULA LEFT UPPER ARM-2 SURGERIES History of colonoscopy X MULTIPLE--last 2018 @ [facility] History of cataract surgery R/L History of appendectomy Cancer RIGHT NEPHRECTOMY Past Anesthesia History No Hx of Anesthesia Complications (As above ) and No Family Hx of Anesthesia Complications History of PONV No Hx of PONV and No Hx of Motion Sickness Social History Smoking Status: Never smoker Do You Dip or Chew Tobacco: No Hx Alcohol Use: No Hx Substance Use: No substance use type: does not use Review of Systems ROS Unobtainable: All systems reviewed & are unremarkable except as noted in HPI & below Constitutional: no fever and no chills Respiratory: no cough and no dyspnea Cardiovascular: no chest pain Gastrointestinal: no abdominal pain and no blood in stools Psychiatric: no problem reported Physical Exam Vital Signs Last Vital Signs Temp 36.7 C 05/02/24 12:23 Pulse 83 05/02/24 12:23 Resp 16 05/02/24 12:23 BP 190/57 H 05/02/24 12:23 Pulse Ox 94 05/02/24 12:23 O2 Del Method Room Air, CPAP 05/02/24 12:23 O2 Flow Rate 0 04/30/24 13:04 FiO2 21 05/02/24 05:08 Constitutional no acute distress ENMT Mouth: + edentulous Thyromental Distance: > or= 3.5 Finger Breadths Mallampati Class: II Neck normal visual inspection and + thick neck Respiratory normal respiratory effort Auscultation: lungs clear to auscultation bilaterally Cardiovascular Rate/Rhythm: regular rate and regular rhythm Testing Laboratory Results 05/02/24 07:11 05/02/24 07:11 PT 10.5 Seconds (9.0-12.0) 04/30/24 12:06 INR 1.0 (0.9-1.1) 04/30/24 12:06 APTT 26 Seconds (21-31) 04/30/24 12:06 Electrocardiogram NRS with RBB
--- NOTE | 2024-05-02 13:17 | GI REPORT ---
[facility] Patient: AIDEN OCHOA : 1935 Sex at : Male Age: 89 Years Procedure: Flexible Sigmoidoscopy Date: 05/02/2024 Attending Physician: Flakito Tompkins MD Referring MD: Jackelyn Solorzano Md; Flakito Tompkins MD Indications: - Rectal hemorrhage Medications: - Monitored Anesthesia Care Complications: - No immediate complications. Estimated Blood Loss: - Estimated blood loss was minimal. Procedure: - The adult colonoscope was introduced through the anus and advanced to the sigmoid colon. - The flexible sigmoidoscopy was accomplished without difficulty. - The patient tolerated the procedure well. - The quality of the bowel preparation was poor. Findings: - Hemorrhoids were found on perianal exam. - Multiple large-mouthed and small-mouthed diverticula were found in the sigmoid colon. There was narrowing of the colon in association with the diverticular opening. - Diminutive polyp in the rectosigmoid. Removed by cold biopsy technique. Impression: - Preparation of the colon was poor. - Hemorrhoids found on perianal exam. - Moderate diverticulosis in the sigmoid colon. There was narrowing of the colon in association with the diverticular opening. - Diminutive polyp in the rectosigmoid. Removed by cold biopsy technique. - No specimens collected. Recommendation: - Await pathology results. - There is diverticulosis which could be a source of bleeding though there was no blood in any of the diverticular sacs which be more typical for diverticular bleed. He has internal hemorrhoids which also could be the source for the bleeding. At this point with a stable hemoglobin and no bleeding, inclined that internal hemorrhoids were the source for his issue. Patient can be discharged from a GI perspective Procedure Code(s): - 22673, Sigmoidoscopy, flexible; diagnostic, including collection of specimen(s) by brushing or washing, when performed (separate procedure) Diagnosis Code(s): - K62.5, Hemorrhage of anus and rectum - K64.9, Unspecified hemorrhoids - K57.30, Diverticulosis of large intestine without perforation or abscess without bleeding CPT(R) - 2023 copyright [employer]. All Rights Reserved. The CPT codes, CCI edits and ICD codes generated are intended as suggestions and were generated based on input data. These codes are preliminary and upon lead informatica developer review may be revised to meet current compliance and payer requirements. The provider is responsible for the final determination of appropriate codes, and modifiers. Flakito Tompkins MD This document has been electronically signed. Note Initiated:05/02/2024 Note Completed:05/02/2024 1:16 PM [id number]
[2024-05-02] MEDS: PROPOFOL IV EMULSION 10 MG/ML 20 ML VIAL IV ONE (13:54)
[2024-05-02] MEDS: ONDANSETRON INJ 2 MG/ML 2 ML VIAL ONE (13:54)
[2024-05-02] MEDS: LIDOCAINE 2% 2 ML VIAL/AMP(20MG/ML) INFIL ONE ×2 (13:54)
--- NOTE | 2024-05-02 14:54 | Anesthesiology Progress Note ---
Date of Service May 02, 2024 Anesthesia Post Procedure Vital Signs Vital Signs: Temp Pulse Pulse Pulse Resp BP Pulse Ox 05/02/24 14:08 05/02/24 13:46 74 16 118/80 92 05/02/24 13:31 76 16 125/72 92 05/02/24 13:16 72 16 121/64 95 05/02/24 12:23 36.7 C 83 16 190/57 H 94 05/02/24 11:37 36.7 C 88 18 116/69 92 05/02/24 07:56 36.4 C L 71 18 116/68 94 05/02/24 05:35 74 05/02/24 05:08 77 12 90 05/02/24 03:41 36.6 C 98 H 20 142/67 H 94 05/02/24 00:22 37.2 C 91 H 20 123/78 92 05/01/24 23:47 68 25 H 95 05/01/24 23:45 86 05/01/24 23:06 05/01/24 20:24 37.0 C 86 20 125/73 92 05/01/24 15:15 78 05/01/24 15:11 36.7 C 76 16 128/51 L 94 O2 Del Method FiO2 05/02/24 14:08 Room Air 05/02/24 13:46 Room Air 05/02/24 13:31 Room Air 05/02/24 13:16 Room Air 05/02/24 12:23 Room Air, CPAP 05/02/24 11:37 Room Air 05/02/24 07:56 Room Air 05/02/24 05:35 05/02/24 05:08 21 05/02/24 03:41 Room Air, CPAP 05/02/24 00:22 Room Air 05/01/24 23:47 21 05/01/24 23:45 05/01/24 23:06 Room Air, BiPAP 05/01/24 20:24 Room Air 05/01/24 15:15 05/01/24 15:11 Room Air Transfer of Care Handoff Completed per policy Notes Mental Status: alert / awake / arousable Patient Amnestic to Procedure: Yes Nausea / Vomiting: adequately controlled Pain: adequately controlled Airway Patency, RR, SpO2: stable & adequate BP & HR: stable & adequate Hydration State: stable & adequate Anesthetic Complications: no major complications apparent and Pt Satisfied with anesthetic care
--- NOTE | 2024-05-02 15:50 | Discharge Summary ---
Discharge Summary Date of Service May 02, 2024 Principal Dx & Hospital Course #1 = Principal Diagnosis (1) Rectal bleeding: (2) Hypoxia: (3) ORLIN on CPAP: (4) ESRD (end stage renal disease) on dialysis: (5) Aortic aneurysm: Plan Mr. Hightower is an 89-year-old male with PMH renal cell carcinoma s/p nephrectomy, ESRD on HD MWF, ascending aortic aneurysm, MGUS, ORLIN on BiPAP, and other problems listed below who presents to the ED for evaluation of BRBPR. Patient underwent sigmoidoscopy which revealed that internal hemorrhoids are likely related, but also noted external hemorrhoids and diverticulosis--all which could be presumptive source of bleed. Hemoglobin remained stable since admission. On day of discharge, patient eating well and ambulating at baseline #BRBPR #chronic anemia iso chronic renal disease Patient presenting from home with reports of rectal bleeding x 3 days hgb at baseline 11- Gi consulted: sigmoidoscopy 05/02: diverticulosis, hemorrhoids discussed conservative measures stable hgb #congestion *resolved #Transient Hypoxia *Resolved Patient had a brief episode of hypoxia in the ED at 88% while on room air, place on 2L via NC CXR clear, patient denies respiratory symptoms remains on RA trial Claritin and flonase for congestion--successful and resolved #ORLIN on CPAP: Continue HS BiPAP as per home settings # ESRD (end stage renal disease) on dialysis: HD MWF Nephro consult Continue usual routine renal medications #Aortic aneurysm: Ascending aorta measured 4.6 cm on echo 02/2024 Notes For Next Care Provider Encouraged sitz baths, topical ointments, preventing constipation Medication Changes From Visit None Admission HPI Per Admitting Provider 89-year-old male with PMH renal cell carcinoma s/p nephrectomy, ESRD on HD MWF, ascending aortic aneurysm, MGUS, ORLIN on BiPAP, and other problems listed below who presents to the ED for evaluation of rectal bleeding. Patient reports that symptoms began about 3 days ago. He reports 3 episodes of bright red bleeding per rectum with last episode being this morning. Stools have been soft. Patient denies abdominal pain, nausea, vomiting. No fevers or chills. Denies chest pain and shortness of breath. No lightheadedness, dizziness, diaphoresis, syncopal events. Denies urinary symptoms. Patient had usual dialysis treatment yesterday. In the ED, patient is hemodynamically stable. Labs show Hgb 13.0. Patient had a brief episode of hypoxia at 88% on room air, patient was subsequently placed on 2L via NC. CXR clear, flu, COVID, RSV testing negative. During my exam, I placed patient on room air and he maintain his saturation in the mid 90s. Admission Exam Per Admitting Provider Constitutional: WD/WN, vitals as above no acute distress Eyes: PERRL, conjunctivae normal, anicteric sclerae ENMT: external ear and nose normal, oropharynx normal Respiratory: normal respiratory effort, lungs clear to auscultation Cardiovascular: Rate/Rhythm: regular rate and regular rhythm Vessels: normal peripheral pulses Extremities: no edema Gastrointestinal (Abdomen): normal bowel sounds, soft, nontender, no hepatosplenomegaly Skin: no rashes, warm and dry Neurologic: PERRL, EOMI, accommodation nl, no face palsy, no dysarthria Psychiatric: A+Ox3, euthymic affect Discharge Exam Constitutional WD/WN, vitals as above Respiratory normal respiratory effort, lungs clear to auscultation Cardiovascular RRR, no murmur, no edema Gastrointestinal (Abdomen) normal bowel sounds, soft, nontender, no hepatosplenomegaly Updated Medication List Medication Instructions Recorded Confirmed Type aspirin 81 mg tablet,delayed 81 mg PO DAILY 07/25/23 04/30/24 History release finasteride 5 mg tablet 5 mg PO DAILY #90 tabs 02/06/24 04/30/24 Rx lanthanum 500 mg chewable tablet 500 mg PO TIDM 04/30/24 04/30/24 History (Fosrenol) vitamin B complex and vitamin C 1 cap PO DAILY 04/30/24 04/30/24 History no.20-folic acid 1 mg capsule (Triphrocaps) Hospital Stay Data Consultations 04/30/24 14:00 ED Decision to Admit Stat 04/30/24 15:17 Consult Gastroenterology Routine Consult Nephrology Routine Procedures Performed Operation Date: 05/02/24 16:30 Actual Procedures p Flexible Sigmoidoscopy Polyp Removal - Flakito Tompkins MD Pending Results Patient Have Any Pending Studies at Discharge: No Discharge Instructions Given to Patient (Per Discharging Provider) You were admitted for rectal bleeding You underwent a flexible sigmoidscopy which revealed hemorrhoids and diverticulosis as a potential cause Preventing constipation will be paramount to keeping your self from bleeding Total Time Total Time Spent Total Time Spent (In Minutes): 35
[2024-05-02 16:20] VITALS: BP 118/68; PULSE 77; RESP 18; TEMP 97.9; O2SAT 93
== END 2024-05-02 16:31 | disposition home or self-care (01) | DRG 377 ==
LOC: ED 11:37 → 2W 14:23 → SUATTDRO 14:23 → 2W 16:05